=== PATIENT | female | born 1960 | race Caucasian/White ===

== ENCOUNTER 2020-01-29 10:49 | Observation (INO) | payer OTHER, SELFPAY ==
[2020-01-29] VITALS (12 sets, daily range): BP systolic 168–199; BP diastolic 94–119; PULSE 72–110; RESP 10–18; TEMP 36.3–36.7; O2SAT 96–100; BMI 33.5
--- NOTE | ~2020-01-29 | CT_ITS ---
EXAMINATION: CTA brain carotid DATE: 01/29/2020 16:42 SNOW REMOVAL SUPERVISOR INDICATION: Right arm numbness TECHNIQUE: Computed tomographic angiography (CTA) of the head was performed without and with 100 mL O mnipaque-350 intravenous contrast. CTA of the neck was performed with intravenous contrast. The dose- length product was 1000.11 mGy-cm. Maximum intensity projection and volume rendered 3D-reconstruction s were created by the technologist on a separate workstation. Automated exposure control and iterativ e reconstruction technique were employed. COMPARISON: CT brain dated 01/29/2020. FINDINGS: HEAD CTA: No significant stenosis, occlusion or aneurysm is identified in the major intracranial vess els. Vertebral arteries are symmetric. NECK CTA: No significant stenosis, occlusion or dissection. Minimal atherosclerotic calcification rig ht carotid bulb. Straightening of normal cervical lordosis with mild cervical spondylosis. There is 0% stenosis of the proximal right internal carotid artery relative to normal distal artery l umen diameter (NASCET criteria). There is 0% stenosis of the proximal left internal carotid artery re lative to normal distal artery lumen diameter. IMPRESSION: 1: No significant vascular abnormality of the neck or head. No significant stenosis, occlusion, diss ection or aneurysm. Reviewed, dictated and finalized at location A. REMOVAL SUPERVISOR IMPRESSION: 1: No significant vascular abnormality of the neck or head. No significant asim nosis, occlusion, dissection or aneurysm.
--- NOTE | ~2020-01-29 | CT_ITS ---
EXAMINATION: CT brain wo con EXAM DATE: 01/29/2020 13:13 INDICATION: Right arm paresthesia. High blood pressure. TECHNIQUE: Spiral CT of the head was performed without contrast. Axial, coronal and sagittal images were reviewed. The dose-length product (DLP) for this examination was 605.33 mGy-cm. The exposure w as tailored according to patient size, and iterative reconstruction (ASIR) was used as additional dos e reduction technique. Comparison is made to prior examination from 10/13/2008. FINDINGS: The There is no acute intraparenchymal hemorrhage. No evidence of intraparenchymal brain m ass lesion. No evidence of acute infarction. There is no mass effect or midline shift. The ventric les are normal in size. There are no extra-axial collections. There are no acute calvarial fracture s. The orbits are unremarkable. Soft tissue is unremarkable. The visualized sinuses and mastoid air cells are well aerated. IMPRESSION: 1. Unremarkable head CT examination. Reviewed, dictated and finalized at location A. D YEAST SUPERVISOR
--- NOTE | ~2020-01-29 | MR_ITS ---
EXAMINATION: MR brain/brain stem wo/w con EXAM DATE: 01/31/2020 12:43 INDICATION: Stroke. TECHNIQUE: Magnetic resonance imaging (MRI) of the brain/brain stem obtained without contrast. Sagit byron T1, axial diffusion, gradient echo (T2*), T1, T2, FLAIR sequences obtained. Patient was then inj ected with 15 cc intravenous Multihance contrast. Axial and coronal postcontrast T1 weighted sequence s obtained. Correlation is made to head CT from 01/28. FINDINGS: There is punctate acute infarction in the left thalamus. There is no acute hemorrhage seen on the T2*, a hemosiderin sensitive sequence. No intraparenchymal brain mass. The ventricles are nor mal in size. There are no extra-axial collections. Flow voids are seen in the cerebral arteries on the T2-weighted sequences consistent with their expected patency. The orbits are unremarkable. Seba ceous cyst along the midline scalp toward the vertex. There are no areas of abnormal enhancement on the postcontrast images. IMPRESSION: 1. Punctate acute left thalamic lacunar infarction. Reviewed, dictated and finalized at location A. CTOR SPEECH AND HEARING
[2020-01-29 11:54] LABS: Basophils Absolute Auto 0.1 K/mm3 (0.0-0.1); Basophils Percent Auto 1.3 % (0.2-1.2); Eosinophils Absolute Auto 0.2 K/mm3 (0-0.3); Eosinophils Percent Auto 3.4 % (0-4.4); Hematocrit 45.4 % (37.0-47.0); Hemoglobin 15.5 g/dL (12.0-15.0); Immature Granulocyte Absolute 0.03 K/mm3 (0.00-0.031); Immature Granulocyte Percent A 0.5 % (0-0.5); Lymphocytes Absolute Auto 1.44 K/mm3 (0.9-3.2); Lymphocytes Percent Auto 23.1 % (18.3-44.2); Mean Corpuscular HGB Conc 34.1 g/dl (32-36); Mean Corpuscular Hemoglobin 29.6 pg (26-34); Mean Corpuscular Volume 86.6 fl (80-100); Mean Platelet Volume 11.7 fl (7.4-10.4); Monocytes Absolute Auto 0.4 K/mm3 (0.1-0.6); Monocytes Percent Auto 6.9 % (2.6-8.5); Neutrophils Absolute Auto 4.1 K/mm3 (1.3-6.7); Neutrophils Percent Auto 64.8 % (45.5-73.1); Platelet Count Result 233 k/mm3 (150-375); Red Blood Count 5.24 M/mm3 (4.2-5.4); Red Cell Distribution Width 13.4 % (11.5-14.5); White Blood Count 6.2 K/mm3 (4.5-10.0)
[2020-01-29 12:06] LABS: Anion Gap 8 mmol/L (8-16); Blood Urea Nitrogen 13 mg/dL (7-17); Calcium 9.5 mg/dL (8.4-10.2); Carbon Dioxide 30 mmol/L (22-30); Chloride 104 mmol/L (98-107); Estimated CRCL calculation 54 ml/min; Estimated Glomerular Filt Rate > 60; Glucose 98 mg/dL (65-105); INR 0.9; Potassium 3.7 mmol/L (3.4-5.0); Prothrombin Time 13.1 Seconds (11.1-14.7); Sodium 142 mmol/L (137-145)
[2020-01-29 12:07] LABS: Partial Thromboplastin Time 29.2 SECONDS (22.3-36.8)
[2020-01-29 12:18] LABS: Troponin I < 0.012 ng/mL (0.000-0.034)
--- NOTE | 2020-01-29 12:28 | ECG_ITS ---
Measurements Intervals [place] Rate: 94 P: 40 TN: 181 QRS: -4 QRSD: 81 T: 4 QT: 349 QTc: 437 Interpretive Statements SINUS RHYTHM POSSIBLE LEFT ATRIAL ENLARGEMENT DELAYED PRECORDIAL R/S TRANSITION VOLTAGE CRITERIA FOR LVH BORDERLINE T WAVE ABNORMALITY- INFERIOR LEADS BORDERLINE ECG Electronically Signed On 01-29-2020 13:29:21 ROOM [facility] [employer] by Maco Swann D.O.
--- NOTE | 2020-01-29 12:45 | ED.NEUROSD ---
HPI - Neuro Symptoms/Deficit General Chief Complaint: Neuro Symptoms/Deficit Stated Complaint: numbness in hand and r arm Time Seen by Provider: 01/29/20 12:42 History of Present Illness HPI Narrative: 59 yo female w/ h/o htn presents to the ED for arm numbness. She reports that it first started yesterday. Resolved prior to going to bed last night. When she awoke this morning it had returned and has been constant throughout the day. She has also had intermittent right facial numbness, which is currently not present. She has never had these symptoms before. No weakness, confusion, aphasia, headache. She has not had her blood pressure medications for months. Related Data Home Medications Medication Instructions Recorded Confirmed aspirin [Adult Aspirin] 81 mg PO DAILY 01/29/20 01/29/20 telmisartan 40 mg PO DAILY 01/29/20 01/29/20 Allergies Allergy/AdvReac Type Severity Reaction Status Date / Time No Known Allergies Allergy Verified 01/29/20 17:49 Review of Systems Review of Systems: All systems reviewed & are unremarkable except as noted in HPI and below Constitutional: Constitutional: Denies chills, Denies fever(s) and Denies weakness Eyes: Eyes: Denies change in vision ENT: Denies sore throat Cardiovascular: Cardiovascular: Denies chest pain Respiratory: Respiratory: Denies dyspnea Gastrointestinal: Gastrointestinal: Denies abdominal pain and Denies nausea Musculoskeletal: Musculoskeletal: Denies back pain Integumentary/Breasts: Skin/Breast: Denies rash Neurologic: Denies confusion, Denies dizziness, Denies headache(s), Reports numbness and Denies weakness Psychiatric: Psychiatric: Denies anxiety [facility] Past Medical History Medical History Essential hypertension Surgical History Surgical History History of 2 sections History of partial hysterectomy History of tonsillectomy and adenoidectomy Family History Family History Mother Cerebrovascular accident Diabetes mellitus Hypertension Grandparent Cerebrovascular accident Social History Social History (Updated 01/29/20 @ 22:14 by Sosa Prescott PA-C) Social History: The patient lives in [place], [place] with her children. 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 No alcohol, tobacco, or illicit substance use. She designates her son, Xavier, as her surrogate decision maker and she wishes to be a full code. Spiritual care concerns: No Exam Const: General: healthy appearing, no acute distress and alert Orientation/consciousness: patient oriented x3 HENMT: Head: normal to inspection Neck: Neck: normal visual inspection and no lymphadenopathy Chest: Chest palpation & inspection: no tenderness Resp: Effort & Inspection: normal respiratory effort Auscultation: clear to auscultation bilaterally, no rales, no rhonchi and no wheezes Cardio: Jugular venous distension: no JVD Rate: regular rate Rhythm: regular rhythm Heart sounds: no murmurs GI: Inspection: non-distended GI Palp: Yes Soft to palpation and No Tenderness to palpation present (GI) Skin: General skin exam: normal color Neuro: General: patient oriented x3, moves all extremities, no focal motor deficits and CN's II-XI intact bilaterally Speech: normal speech Motor exam (neuro): 5/5 motor strength present throughout Sensory Exam: Upper extremity sensory exam abnormal Extrem: General: no edema Psych: Appearance: well kempt Affect: normal affect Course Vital Signs Vital signs: Vital Signs Temperature 36.3 C L 01/29/20 11:33 Pulse Rate 110 H 01/29/20 11:33 Respiratory Rate 18 01/29/20 11:33 Blood Pressure 183/119 H 01/29/20 11:33 Pulse Oximetry 99 01/29/20 11:33 Temperature 36.5 C 01/30/20 14:46 Pulse Rate
[2020-01-29] MEDS: ASPIRIN 81 MG CHEWABLE TABLET 324 MG PO (14:15)
--- NOTE | 2020-01-29 15:10 | ECHO_ITS ---
Patient Info Name: Sasha Carrillo Age: 59 years : 1960 Gender: Female Ht: 61 in Wt: 154 lbs BSA: 1.76 m2 HR: 88 bpm BP: 183 / 119 mmHg Heart Rhythm: Sinus Rhythm Technical Quality: Good Exam Date: 01/29/2020 4:10 PM Exam Location: [facility] Exam Room: ER [facility] Patient Status: Inpatient Admit Date: 01/29/2020 Staff Ordering Physician: Sosa Prescott PA-C Medical Staff Assistant: Allie Cuevas RDCS Attending Provider: Audrey Wade MD Referring Physician: Kenyon NICHOLE; Exam Type: CA echo doppler color flow Study Info Indications - htn cva symptoms Complete two-dimensional, color flow and Doppler transthoracic echocardiogram is performed. Summary 1. Complete two-dimensional, color flow and Doppler transthoracic echocardiogram is performed. 2. Left ventricular chamber size and systolic function are normal with no regional wall motion abnormalities with an estimated ejection fraction of 60-65%. Diastolic dysfunction is present. Moderate left ventricular hypertrophy is present. 3. Left atrial chamber dimension is mildly enlarged. 4. No pulmonary hypertension, estimated pulmonary arterial systolic pressure is 34 mmHg. 5. No significant valve disease. 6. Normal sinus rhythm. Left Ventricle Left ventricular chamber dimension is normal. Left ventricular systolic function is normal, estimated at 60-65%. There is moderately increased left ventricular wall thickness. Left ventricular septal wall motion is normal. The left ventricular diastolic function is grade I diastolic dysfunction. Left ventricular chamber size and systolic function are normal with no regional wall motion abnormalities with an estimated ejection fraction of 60-65%. Diastolic dysfunction is present. Moderate left ventricular hypertrophy is present. Right Ventricle Right ventricular chamber dimension is normal. Right ventricular systolic function is normal. Left Atria Left atrial chamber dimension is mildly enlarged. Right Atria Right atrial chamber dimension is normal. Aortic Valve The aortic valve is trileaflet. There is no aortic valve sclerosis. There is no aortic valve stenosis. There is no aortic valve regurgitation. Pulmonic Valve The pulmonic valve is normal. There is no pulmonic valve stenosis. There is trace pulmonic regurgitation. Mitral Valve The mitral valve has normal leaflets. There is no mitral valve stenosis. There is no mitral valve regurgitation. Tricuspid Valve The tricuspid valve leaflets are normal. There is no significant tricuspid valve stenosis. There is trace tricuspid valve regurgitation. No pulmonary hypertension, estimated pulmonary arterial systolic pressure is 34 mmHg. Pericardium/Pleural The pericardium appears normal. There is no pericardial effusion. Inferior Vena Cava Normal inferior vena cava with >50% collapse upon inspiration consistent with Empty right atrial pressure, 10 mmHg. Aorta The aortic root size at the sinus of Valsalva is normal. The prox ascending aorta size is normal. Left Ventricular Outflow Tract Name Value Normal LVOT 2D LVOT Diameter 2.0 cm LVOT Doppler
--- NOTE | 2020-01-29 17:30 | PM.IMHP ---
H&P: HPI History of Present Illness Date/Time: 01/29/20 17:30 Chief Complaint: Right-sided paresthesias. Narrative: Sasha Carrillo is a 59-year-old female with hypertension who presented to the emergency department earlier today via private vehicle from home with reports of right-sided paresthesias. 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 Since that time she has had intermittent paresthesias in the right upper extremity as well as the right side of the face and lips. As she continued to have symptoms today, she came in for evaluation. On arrival to the emergency department her blood pressure was 183/119 and with further questioning she mentions that she has been off of her antihypertensives for nearly a year. She will occasionally check her blood pressures at home and in the community, and reports that they are typically in the 140s - 150s over 90s. She denies headache, vertigo, focal weakness, auditory and visual changes, dysarthria, and dysphagia. She also denies chest pain and palpitations. Review of Systems Review of Systems: Narrative: Twelve systems were reviewed with pertinent positives and negatives as per HPI. No fever, chills, or sweats. No recent cold or flu symptoms. She denies cough and shortness of breath. No chest pain. No nausea, vomiting, diarrhea, or dysuria. Except as documented, all other systems were reviewed and are negative. [facility] Past Medical History Medical History Essential hypertension Surgical History Surgical History History of 2 sections History of partial hysterectomy History of tonsillectomy and adenoidectomy Family History Family History Mother Cerebrovascular accident Diabetes mellitus Hypertension Grandparent Cerebrovascular accident Social History Social History (Updated 01/29/20 @ 22:14 by Sosa Prescott PA-C) Social History: The patient lives in [place], [place] with her children. She works for a [employer] in [place] but has been working at home since April 2019. No alcohol, tobacco, or illicit substance use. She designates her son, Xavier, as her surrogate decision maker and she wishes to be a full code. Spiritual care concerns: No Meds Home Medications and Allergies Home Medications Medication Instructions Recorded Confirmed Type aspirin [Adult Aspirin] 81 mg PO DAILY 01/29/20 01/29/20 History telmisartan 40 mg PO DAILY 01/29/20 01/29/20 History Allergies Allergy/AdvReac Type Severity Reaction Status Date / Time No Known Allergies Allergy Verified 01/29/20 17:49 Vital Signs Vital Signs - 24 hr 01/29/20 11:33 Temperature 97.4 F L Pulse Rate 110 H Respiratory Rate 18 Blood Pressure 183/119 H Pulse Oximetry 99 Exam Narrative: Exam Narrative: General: Well-developed female sitting up in bed in no distress. Weight: 80.6 kg. BMI: 33.6. HEENT: Normocephalic, atraumatic. Wearing corrective lenses. PERRL, EOMI. Sclerae anicteric. Oral mucosa moist. Oropharynx clear. Neck: Supple. No JVD. No carotid bruits. Respiratory: Lungs are clear to auscultation bilaterally. Cardiovascular: Regular rate and rhythm with S1-S2. Gastrointestinal: Abdomen is soft, nontender, and nondistended with positive bowel sounds. Skin: Warm and dry. No rash or lesions on limited exam. Extremities: No cyanosis, clubbing, or edema. Radial and pedal pulses intact. Neurological: Alert and oriented x4. Cranial nerves 2-12 are grossly intact. Speech is clear. No facial asymmetry. No pronator drift. Normal [id number] and rapid alternating movements. Strength 5/5 in upper and lower extremities. Reports decrease
--- NOTE | 2020-01-29 17:44 | ADMGEN ---
This patient, Sasha Carrillo, was admitted to 2 Medical Room 250-01. Patient/family oriented to hospital policies and general routines including ID bracelet, bed and alarms, visiting hours, pain management, procedures, bathroom and other care routines, personal items, smoking policy, room service/diet, and visiting hours. Information on how to activate the Rapid Response Team has been discussed. Patient/Family are encouraged to report perceived risks to care and to ask questions if they do not understand what they are told or what they should do. Report received from JOSE Gonzalez.
[2020-01-29] MEDS: TELMISARTAN 40 MG TABLET PO (22:25)
[2020-01-30] VITALS (10 sets, daily range): BP systolic 179–202; BP diastolic 86–98; PULSE 69–92; RESP 16–20; TEMP 36.5–37; O2SAT 96–99
[2020-01-30] MEDS: ACETAMINOPHEN 325 MG TABLET 650 MG PO (05:12)
[2020-01-30 05:57] LABS: Alanine Aminotransferase 32 U/L (4-35); Albumin Level 4.2 g/dL (3.5-5.1); Alkaline Phosphatase 84 U/L (38-126); Anion Gap 8 mmol/L (8-16); Aspartate Amino Transferase 39 U/L (14-36); Bilirubin,Total 0.8 mg/dL (0.2-1.3); Blood Urea Nitrogen 12 mg/dL (7-17); Calcium 9.3 mg/dL (8.4-10.2); Carbon Dioxide 29 mmol/L (22-30); Chloride 102 mmol/L (98-107); Cholesterol 254 mg/dL (0-200); Estimated CRCL calculation 64 ml/min; Estimated Glomerular Filt Rate > 60; Glucose 106 mg/dL (65-105); HDL Direct 53 mg/dL; Potassium 3.6 mmol/L (3.4-5.0); Sodium 139 mmol/L (137-145); Triglycerides 122 mg/dL (<150)
[2020-01-30 06:08] LABS: LDL Cholesterol Direct 143 mg/dL
[2020-01-30] MEDS: ATORVASTATIN 20 MG TABLET PO (08:11)
[2020-01-30] MEDS: ASPIRIN 81 MG ENTERIC TABLET PO (08:11)
[2020-01-30] MEDS: hydroCHLOROthiazide 12.5 MG CAPSULE PO (12:25)
--- NOTE | 2020-01-30 17:40 | PM.IMPN ---
Progress Note: A&P Assessment and Plan (1) Paresthesias: Code(s): R20.2 - Paresthesia of skin Status: Acute Assessment and Plan: Patient with right sided paresthesias involving mostly the RUE and right face. She has uncontrolled HTN when could have caused a small CVA. TIA less likely given the persistent symptoms. CTA of the Head/Neck normal. Echo is essentially normal. LDL 143. Add Lipitor. Continue ASA for now. Brain MRI pending (2) Essential hypertension: Code(s): I10 - Essential (primary) hypertension Status: Acute Assessment and Plan: Blood pressure was elevated still this morning despite starting back her telmisartan last night. Will add low dose HCTZ this morning to lower BP slightly below 200 but to keep with the permissive hypertensive strategy. (3) Hyperlipidemia: Code(s): E78.5 - Hyperlipidemia, unspecified Status: Acute Assessment and Plan: LDL 143 with TC 254. Lipitor started. Would advance dose if she has had a CVA. (4) DVT prophylaxis: Code(s): Z29.9 - Encounter for prophylactic measures, unspecified Status: Acute Assessment and Plan: SCDs Subjective Date/time seen: 01/30/20 17:40 Interval history: Date of service 01/29 59yo female with untreated HTN here for right sided paresthesias. Patient states that the right UE has more tingling in it today and not as numb. No RLE or left sided symptoms. Still numb in the right side of the face mostly in V2 area. She denies weakness and has been walking to the BR. No vision changes. Eating okay. Exam Narrative: Exam Narrative: AF 97.7 181/87 80 20 99% ra Gen - NARD Chest - CTA bilaterally, nml RR CV - RRR S1/S2; Tele showing no signifincat dysrhythmias Abd - Soft, NT/ND, Positive BS Ext - No pedal edema Neuro - Alert and oriented. No focal weakness. Nml sensation to light touch to the lower extremity. Decreased sensation involving the whole right hand and forearm when compared to the left. No significant change in sensation to the face. Speech is clear. CN 2-12 intact. PERRL/EOMI. Psych - Nml mood and affect Skin - Warm and dry Objective Data Vital Signs Vital Signs: Vital Signs - 24 hr 01/29/20 18:00 01/29/20 21:00 01/30/20 00:00 Temperature 98.0 F 97.5 F L Pulse Rate 75 75 90 Respiratory Rate 18 18 Blood Pressure 191/98 H 187/94 H Pulse Oximetry 100 96 01/30/20 04:00 01/30/20 04:58 01/30/20 05:03 Temperature 98.0 F Pulse Rate 76 87 Respiratory Rate 16 Blood Pressure 202/98 H 202/98 H Pulse Oximetry 99 01/30/20 08:00 01/30/20 08:32 01/30/20 12:00 Temperature Pulse Rate 71 70 Respiratory Rate Blood Pressure Pulse Oximetry 96 01/30/20 14:46 Temperature 97.7 F Pulse Rate 80 Respiratory Rate 20 Blood Pressure 181/87 H Pulse Oximetry 99 Intake/Output Intake/Output: Intake & Output 01/27/20 01/28/20 01/29/20 01/30/20 23:59 23:59 23:59 23:59 Intake Total 1430 Output Total 4550 Balance -3120 Meds/Results Medications: Active Medications Generic Name Dose Route Start Last Admin Trade Name Justinq PRN Reason Stop Dose Admin Aspirin 81 mg 01/30/20 09:00 01/30/20 08:11 Aspirin 81 Mg Enteric Tablet PO 81 mg QAM OZZY Administration Atorvastatin Calcium 20 mg 01/30/20 09:00 01/30/20 08:11 Atorvastatin 20 Mg Tablet PO 20 mg DAILY OZZY Administration Hydrochlorothiazide 12.5 mg 01/30/20 10:10 01/30/20 12:25 Hydrochlorothiazide 12.5 Mg Capsule PO 12.5 mg QAM OZZY Administration Telmisartan 40 mg 01/29/20 21:15 01/29/20 22:25 Telmisartan 40 Mg Tablet PO 40 mg QPM OZZY Administration Radiology Results: ITS Impressions Head CT 01/29/20 13:15 IMPRESSION: 1. Unremarkable head CT examination. Head/Neck CTA 01/29/20 16:42 IMPRESSION: 1: No significant vascular abnormality of the neck or head. No significant stenosis, o
[2020-01-30] MEDS: TELMISARTAN 40 MG TABLET PO (17:45)
[2020-01-31] VITALS: PULSE 69
[2020-01-31 04:00] VITALS: PULSE 67
[2020-01-31 05:00] VITALS: BP 181/99; PULSE 95; RESP 18; TEMP 36.4; O2SAT 100
[2020-01-31 08:00] VITALS: PULSE 92
[2020-01-31] MEDS: hydroCHLOROthiazide 12.5 MG CAPSULE PO (08:23)
[2020-01-31] MEDS: ATORVASTATIN 20 MG TABLET PO (08:23)
[2020-01-31] MEDS: ASPIRIN 81 MG ENTERIC TABLET PO (08:23)
--- NOTE | 2020-01-31 11:58 | WPDNEURCNPN ---
Assessment and Plan Assessment and plan (1) Hyperlipidemia: Code(s): E78.5 - Hyperlipidemia, unspecified Status: Acute (2) Essential hypertension: Code(s): I10 - Essential (primary) hypertension Status: Acute (3) Paresthesias: Code(s): R20.2 - Paresthesia of skin Status: Acute Additional Plan possibility of the TIA, MRI will be obtained to rule out the possibility of any other etiology such as demyelinating disease considering the age of the patient and further treatment will be decided accordingly at present she is receiving aspirin 81 mg daily and atorvastatin 20 mg daily and for the blood pressure she is receiving hydrochlorothiazide 12.5 mg daily. 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 Since that time she had intermittent paresthesia in the right upper extremity as well as the right side of the face and lips when she continued to have the symptomatology she came to the emergency room for further evaluation. Initial evaluation her blood pressure was 183/119 she had been off her antihypertensive medication for nearly a year and was checking her blood pressure only intermittently she gave no history of any other associated neurological symptomatology. Evaluation up until now documented the CTA with no significant vascular abnormality of the neck or head, echocardiogram not significant, CT of the head negative, routine labs unremarkable except cholesterol of 254 and there is no history of smoking Review of Systems Review of Systems: All systems reviewed & are unremarkable except as noted in HPI and below PMFSH Past Medical History Medical History Essential hypertension Surgical History Surgical History History of 2 sections History of partial hysterectomy History of tonsillectomy and adenoidectomy Family History Family History Mother Cerebrovascular accident Diabetes mellitus Hypertension Grandparent Cerebrovascular accident Social History Social History Social History: The patient lives in [place], [place] with her children. 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 No alcohol, tobacco, or illicit substance use. She designates her son, Xavier, as her surrogate decision maker and she wishes to be a full code. Spiritual care concerns: No Meds Home Medications and Allergies Home Medications Medication Instructions Recorded Confirmed Type aspirin [Adult Aspirin] 81 mg PO DAILY 01/29/20 01/29/20 History telmisartan 40 mg PO DAILY 01/29/20 01/29/20 History Allergies Allergy/AdvReac Type Severity Reaction Status Date / Time No Known Allergies Allergy Verified 01/29/20 17:49 Vital Signs Vital Signs - 24 hr 01/30/20 12:00 01/30/20 14:46 01/30/20 16:00 Temperature 36.5 C Pulse Rate 70 80 69 Respiratory Rate 20 Blood Pressure 181/87 H Pulse Oximetry 99 01/30/20 20:00 01/31/20 00:00 01/31/20 04:00 Temperature 37.0 C Pulse Rate 69 69 67 Respiratory Rate 20 Blood Pressure 179/86 H Pulse Oximetry 97 01/31/20 05:00 01/31/20 08:00 Temperature 36.4 C L Pulse Rate 95 92 Respiratory Rate 18 Blood Pressure 181/99 H Pulse Oximetry 100 Exam Narrative: Exam Narrative: examination revealed her to be awake alert cooperative in no obvious acute distress head normocephalic with no cranial bruit.
[2020-01-31 12:00] VITALS: PULSE 82
[2020-01-31 14:00] VITALS: BP 167/89; PULSE 78; RESP 16; TEMP 36.6; O2SAT 98
--- NOTE | 2020-01-31 15:07 | PM.DS ---
DS: Admitting Diagnosis Admitting Diagnosis Admitting Diagnosis: right sided paresthesias DS: Discharge Diagnosis Discharge Diagnosis (1) Stroke: Qualifiers: CVA mechanism: unspecified Qualified Code(s): I63.9 - Cerebral infarction, unspecified Code(s): I63.9 - Cerebral infarction, unspecified Status: Acute Assessment and Plan: Patient with right sided paresthesias involving mostly the RUE and right face. She has uncontrolled HTN and HLD. Head CT no acute findings. CTA of the Head/Neck showing no significant vascular abnormality of the neck or head; specifically, no significant stenosis, occlusion, dissection or aneurysm.. Echo showing EF 60-65% with diastolic dysfunction. LDL 143. Patient takes aspirin infrequently so Aspirin 81mg added. Brain MRI showing punctate acute left thalamic lacunar infarction. Lipitor added. See below for hypertensive treatment. Given the small CVA and that this is most likely from HTN and not atherosclerotic, will not proceed with Plavix course. Discussed with neurology. (2) Paresthesias: Code(s): R20.2 - Paresthesia of skin Status: Acute Assessment and Plan: Patient with right sided paresthesias involving mostly the RUE and right face. Symptoms improving since admission. Related to the left thalamic CVA. (3) Essential hypertension: Code(s): I10 - Essential (primary) hypertension Status: Acute Assessment and Plan: Blood pressure was elevated on admission up to 202 systolic. We resumed her telmisartan but BP still elevated so low dose HCTZ added to lower BP below 200 but to keep with the permissive hypertensive strategy. Blood pressure today was 181/99 and 167/89. She will need more tighter BP control as outpatient. This was discussed with patient in detail. (4) Hyperlipidemia: Code(s): E78.5 - Hyperlipidemia, unspecified Status: Acute Assessment and Plan: LDL 143 with TC 254. Lipitor started. Benefits of healthy lifestyle discussed. DS: Summary Hospital Course Reason for hospitalization: 59yo female with untreated HTN here for right facial and upper extremeity paresthesias. Please see H&P for details. Hospital Course: Please see above for details of hospital course Status at Discharge Cognitive/behavioral status at discharge: patient is stable for discharge Time Spent with Patient Time attestation: Total time spent providing and/or coordinating discharge services:38 minutes Time spent: Greater than 30 minutes Specific discharge activities: patient education Exam Narrative: Exam Narrative: AF 97.9 167/89 78 16 98% ra Gen - NARD Chest - CTA bilaterally, nml RR CV - RRR S1/S2; Tele showing no significant dysrhythmias Abd - Soft, NT/ND, Positive BS Ext - No pedal edema Neuro - Alert and oriented. No focal weakness. Psych - Nml mood and affect Skin - Warm and dry Discharge Plan Discharge Attending physician on discharge: Ranjith Garcia Consulting providers: Diego Elliott Discharging Clinician: Ranjith Garcia Anticipated Discharge Date/Time: 01/31/20 15:43 Patient Disposition: Home, Self-Care Activity: as tolerated Diet: heart healthy and low sodium Discharge Instructions: Please avoid large gathering, wear face coverings in public and practice social distance. Check blood pressure 1 to 2 times a day. Record and bring into your doctor for review. Call your doctor if your blood pressure is greater than 190/110. Contact your doctor or come to the Emergency Room if you have any acute onset of weakness in an arm or leg, slurred speech or other worrisome symptoms. Avoid NSAIDs (ibuprofen, naproxen, Aleve). Tylenol is safe to take. Follow-up with your doctor next week. Please call for appointment. Follow-up with neurology in 2-4 weeks. Please call for appointment. Patient Instructions: Antibiotic Form, Ischemic Stroke (GEN), DASH E
== END 2020-01-31 16:46 | disposition home or self-care (01) ==
LOC: ANHED 15:21 → ANH2MED 16:07
PROVIDERS: General Practice; Physician Assistant; Admitting Provider Family Medicine; Emergency Provider Emergency Medicine; Visit Provider Internal Medicine
DX: I63.9 Cerebral infarction, unspecified (principal); R20.2 Paresthesia of skin; I10 Essential (primary) hypertension; E78.5 Hyperlipidemia, unspecified; Z79.82 Long term (current) use of aspirin
CPT/HCPCS: 36415; 70450; 70496; 70498; 70553; 80048; 80053; 80061; 84484; 85025; 85610; 85730; 93005; 93306; 99285; A9270; A9577; G0378; Q9967

== ENCOUNTER 2020-02-11 09:04 | Emergency (ER) | payer OTHER, SELFPAY ==
[2020-02-11] VITALS (18 sets, daily range): BP systolic 144–221; BP diastolic 76–114; PULSE 61–119; RESP 8–34; TEMP 36.8; O2SAT 97–100
--- NOTE | ~2020-02-11 | XR_ITS ---
EXAMINATION: XR chest 1V portable DATE: 02/11/2020 10:04 INDICATION: Hypertension. TECHNIQUE: A single frontal view of the chest was obtained. COMPARISON: Chest 2 views 08/22/2011 FINDINGS: The chest demonstrates clear lungs without pneumonia, pleural effusion, or pneumothorax. Th e heart size is normal. IMPRESSION: 1. No acute cardiopulmonary disease. Reviewed, dictated and finalized at location A. INTERN
--- NOTE | ~2020-02-11 | CT_ITS ---
EXAMINATION: CTA brain carotid DATE: 02/11/2020 10:38 INDICATION: Cerebrovascular accident. TECHNIQUE: Computed tomographic angiography (CTA) of the head was performed without and with 100 mL O mnipaque-350 intravenous contrast. CTA of the neck was performed with intravenous contrast. Automated exposure control and iterative reconstruction technique were employed. The dose-length product was 1 645.77 mGy-cm. Maximum intensity projection and volume rendered 3D-reconstructions were created by diogo sanchez technologist on a separate workstation. COMPARISON: Head CTA 01/29/2020 FINDINGS: HEAD CTA: There is no intracranial hemorrhage, acute infarction, or abnormal intracranial mass lesion . The ventricles are normal in size. The paranasal sinuses are clear. The orbits are normal. The mast oid air cells are normal. There is a 1.4 cm partially calcified mass in the anterior superior scalp t hat may be an old hematoma. The vertebral arteries are codominant. There is no significant stenosis o f basilar artery or the posterior cerebral arteries. There is no significant stenosis of the intracra nial internal carotid arteries or anterior or middle cerebral arteries. Anterior communicating artery is normal. The posterior communicating arteries are normal. There is no aneurysm. NECK CTA: There are no pathologically enlarged lymph nodes. There is no significant stenosis of the v ertebral arteries. There is mild plaque in proximal right internal carotid artery. There is 0% stenos is of the proximal right internal carotid artery relative to normal distal artery lumen diameter (ESTEFANI CET criteria). There is 0% stenosis of the proximal left internal carotid artery relative to normal d istal artery lumen diameter. There is mild cervical spondylosis. IMPRESSION: 1. Normal brain. No aneurysm or significant intracranial arterial stenosis. 2. 0% stenosis of the proximal internal carotid arteries relative to normal distal artery lumen diame ters (NASCET criteria). Reviewed, dictated and finalized at location A. E CARE NURSING ASSISTANT IMPRESSION: 1. Normal brain. No aneurysm or significant intracranial arterial stenosis. 2. 0% stenosis of the proximal internal carotid arteries relative to normal dis byron artery lumen diameters (NASCET criteria).
--- NOTE | 2020-02-11 09:40 | ECG_ITS ---
Measurements Intervals [place] Rate: 74 P: 45 NC: 179 QRS: 4 QRSD: 93 T: 9 QT: 370 QTc: 411 Interpretive Statements SINUS RHYTHM POSSIBLE LEFT ATRIAL ENLARGEMENT DELAYED PRECORDIAL R/S TRANSITION BORDERLINE T WAVE ABNORMALITY- INFERIOR LEADS BORDERLINE ECG Electronically Signed On 02-11-2020 10:30:23 ISSUER by Maco Swann D.O.
[2020-02-11] MEDS: LABETALOL HCL INJ 100 MG/20 ML VIAL 10 MG IV PUSH (10:05)
[2020-02-11 10:12] LABS: Basophils Absolute Auto 0.1 K/mm3 (0.0-0.1); Basophils Percent Auto 1.5 % (0.2-1.2); Eosinophils Absolute Auto 0.3 K/mm3 (0-0.3); Eosinophils Percent Auto 5.7 % (0-4.4); Immature Granulocyte Absolute 0.02 K/mm3 (0.00-0.031); Immature Granulocyte Percent A 0.4 % (0-0.5); Lymphocytes Absolute Auto 1.55 K/mm3 (0.9-3.2); Lymphocytes Percent Auto 28.4 % (18.3-44.2); Mean Corpuscular HGB Conc 33.3 g/dl (32-36); Mean Corpuscular Hemoglobin 29.5 pg (26-34); Mean Corpuscular Volume 88.4 fl (80-100); Mean Platelet Volume 12.2 fl (7.4-10.4); Monocytes Absolute Auto 0.4 K/mm3 (0.1-0.6); Monocytes Percent Auto 7.2 % (2.6-8.5); Neutrophils Absolute Auto 3.1 K/mm3 (1.3-6.7); Neutrophils Percent Auto 56.8 % (45.5-73.1); Platelet Count Result 230 k/mm3 (150-375); Red Blood Count 5.09 M/mm3 (4.2-5.4); Red Cell Distribution Width 13.2 % (11.5-14.5); White Blood Count 5.5 K/mm3 (4.5-10.0)
[2020-02-11 10:15] LABS: Glucose Point of Care 116 (65-105)
[2020-02-11 10:25] LABS: Anion Gap 7 mmol/L (8-16); Blood Urea Nitrogen 9 mg/dL (7-17); Calcium 9.5 mg/dL (8.4-10.2); Carbon Dioxide 32 mmol/L (22-30); Chloride 101 mmol/L (98-107); Estimated CRCL calculation 63 ml/min; Estimated Glomerular Filt Rate > 60; Glucose 114 mg/dL (65-105); Potassium 3.5 mmol/L (3.4-5.0); Sodium 140 mmol/L (137-145)
[2020-02-11 10:32] LABS: Estimated CRCL calculation 56 ml/min; Estimated Glomerular Filt Rate > 60
[2020-02-11 10:35] LABS: INR 0.9; Prothrombin Time 12.4 Seconds (11.1-14.7)
[2020-02-11 10:36] LABS: Partial Thromboplastin Time 30.6 SECONDS (22.3-36.8)
--- NOTE | 2020-02-11 10:36 | ED.ABDPAIN ---
HPI - Abdominal Pain General Chief Complaint: Unspecified Stated Complaint: HBP & numbness to right arm Time Seen by Provider: 02/11/20 09:06 Source: patient and old records reviewed Mode of arrival: ambulatory Limitations: no limitations History of Present Illness HPI narrative: Patient is a 59-year-old female who presents to emergency department for evaluation of frontal headache that is minimal in nature as well as some numbness in the right upper extremity that extends from the hand up into the right side of the neck and head in January patient was found to have small ischemic stroke per patient patient saw her primary care doctor yesterday who increased her blood pressure medicine. Patient took the first dose of the increased dose last night. Patient notes this morning at 8:00 she began to feel numbness in the right upper extremity with a mild headache as described presented to ER for these findings due to the similar occurrence in January which was diagnosed as an ischemic stroke. Patient is also taking baby aspirin at this time. Patient notes she had felt fine in the preceding days Related Data Home Medications Medication Instructions Recorded Confirmed telmisartan 60 mg PO QPM 02/11/20 Allergies Allergy/AdvReac Type Severity Reaction Status Date / Time No Known Allergies Allergy Verified 02/11/20 09:21 Review of Systems Review of Systems: All systems reviewed & are unremarkable except as noted in HPI and below PMFSH Past Medical History Medical History (Updated 02/11/20 @ 13:11 by Duane Shay PA-C) Essential hypertension Hyperlipidemia Paresthesias Stroke Surgical History Surgical History History of 2 sections History of partial hysterectomy History of tonsillectomy and adenoidectomy Family History Family History Mother Cerebrovascular accident Diabetes mellitus Hypertension Grandparent Cerebrovascular accident Social History Social History Social History: The patient lives in [place], [place] with her children. She works for a [employer] in [place] but has been working at home since April 2019. No alcohol, tobacco, or illicit substance use. She designates her son, Xavier, as her surrogate decision maker and she wishes to be a full code. Gender identity (if verbalized by the patient): Female Spiritual care concerns: No Exam Narrative: Exam Narrative: GENERAL: Well-appearing, well-nourished, and in no acute distress. HEAD: Normocephalic, atraumatic. EYES: PERRLA and EOMI. ENT: Nares clear, no rhinorrhea or epistaxis. Mucous membranes moist. NECK: Supple. No adenopathy or masses. No carotid bruits or JVD CHEST: Clear to auscultation. No respiratory distress. No wheezes rales or rhonchi HEART: Regular rate and rhythm. No murmur heard. Normal peripheral pulses. EXTREMITIES: Normal range of motion. No edema. SKIN: Warm, dry, no rash. NEURO: No focal deficits. Alert and oriented x3. Cranial nerves II through XII grossly intact. Normal [id number] and [id number]. Normal speech. No pronator drift. Motor and sensory intact and symmetrical in the extremities. Cerebellar intact PSYCH: Normal mood and affect. Course Course Emergency Course: Patient presented with what appeared to be hypertensive urgency was evaluated was given a dose of labetalol and had marked improvement of her blood pressure throughout her visit patient otherwise in no distress resting comfortably noting she is feeling much better at the resolution of her evaluation discussions were made with neurology and primary care who feel they will follow the patient outside of the hospital and not warranting admission at this time neurology states that this is likely a blood pressure issue and with control of her blood pressure her symptoms sh
[2020-02-11 10:38] LABS: Troponin I < 0.012 ng/mL (0.000-0.034)
== END 2020-02-11 13:26 | disposition home or self-care (01) ==
PROVIDERS: Emergency Medicine Emergency Medical Services; Emergency Provider Emergency Medicine; PCP Internal Medicine
DX: I10 Essential (primary) hypertension (principal); E78.5 Hyperlipidemia, unspecified; Z86.73 Personal history of transient ischemic attack (TIA), and cerebral infarction without residual deficits; R20.2 Paresthesia of skin; R94.31 Abnormal electrocardiogram [ECG] [EKG]
CPT/HCPCS: 36415; 70496; 70498; 71045; 80048; 82948; 84484; 85025; 85610; 85730; 93005; 96374; 99284; Q9967

== ENCOUNTER 2024-08-18 09:19 | Emergency (ER) | payer OTHER, SELFPAY ==
[2024-08-18] VITALS (15 sets, daily range): BP systolic 124–178; BP diastolic 77–103; PULSE 78–110; RESP 11–26; TEMP 36.6; O2SAT 95–100
--- NOTE | ~2024-08-18 | CT_ITS ---
EXAMINATION: CTA chest PE protocol DATE: 08/18/2024 10:45 INDICATION: Chest pain. Near syncope. TECHNIQUE: Computed tomography (CT) pulmonary angiogram of the chest was performed with 100 mL Omnipa que-350 intravenous contrast. Additional 3D reconstructions utilizing coronal maximum intensity proje ction (MIP) were performed. Automated exposure control and iterative reconstruction technique were em ployed. The dose-length product was 339.47 mGy-cm. COMPARISON: None FINDINGS: No pulmonary embolism. No pneumonia, pulmonary edema, pleural effusion or pneumothorax. Heart size is normal. No pericardial effusion. Thoracic aorta is normal in caliber with no dissection. No patholog ically enlarged abdominal or pelvic lymphadenopathy. Small sliding-type hiatal hernia. Mild scattered colonic diverticulosis without adjacent comparison to suggest diverticulitis. Visualized upper abdom en is unremarkable. Thoracic dextrocurvature with mild to moderate spondylosis. IMPRESSION: 1. No pulmonary embolism or other acute cardiopulmonary disease. 2. Small sliding-type hiatal hernia. Reviewed, dictated and finalized at location A.
--- NOTE | ~2024-08-18 | XR_ITS ---
EXAMINATION: XR chest 1V DATE: 08/18/2024 10:40 INDICATION: Chest pain TECHNIQUE: PA view of the chest was obtained. COMPARISON: CT dated 08/18/2024 FINDINGS: The lungs are clear with no focal airspace opacities, pulmonary edema, pleural effusion or pneumothor ax. The cardiomediastinal silhouette is normal. Mild thoracic dextrocurvature with mild spondylosis IMPRESSION: 1. No acute cardiopulmonary disease. Reviewed, dictated and finalized at location A.
--- OUTSIDE RECORDS SUMMARY | 2024-08-18 09:23 | XMS_ITS | Referral Summary ---
Author Organization [facility] Clinical [facility] Address [address] [place] [id number] Care Team Providers Care Safety Teacher Name Role Phone Tunde Espinosa MD Primary Care Provider [phone] Jacque Hunter MD Unavailable [phone] Diego Elliott MD Unavailable [phone] Encounters Date Type Department Care Team Description 06/17/2024 Results Follow-Up [address] [address] Tunde Espinosa MD CBC with auto differential, Comprehensive metabolic panel, Lipid panel, Additional followed-up results: 5 06/17/2024 2:30 PM CDT Office Visit [address] [address] Tunde Espinosa MD Primary hypertension (Primary Dx); IFG (impaired fasting glucose) from Last 3 Months Allergies Active Allergy Reactions Criticality Noted Date Comments Lisinopril Cough Low 05/09/2018 Medications aspirin 81 mg enteric coated tabletIndications: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 90 tablet 025 Active telmisartan (MICARDIS) 80 mg tabletIndications:Prima ry hypertension TAKE 1 TABLET BY MOUTH EVERY DAY 90 tablet 025 Active amLODIPine (NORVASC) 5 mg tabletIndications:Prima ry hypertension Take 1 tablet (5 mg total) by mouth daily 90 tablet 025 2024 Discontinued telmisartan (MICARDIS) 80 mg tabletIndications:Prima ry hypertension Take 1 tablet (80 mg total) by mouth daily 90 tablet 025 2024 Discontinued Active Problems Problem Noted Date Diagnosed Date IFG (impaired fasting glucose) 01/05/2023 Assessment & Plan (06/17/2024 2:30 PM CDT): Impaired Fasting Glucose is newly identified Counseled on regular aerobic exercise, including walkig, jogging, targeting 10K- 20K step equivalent daily., Counseled on low carbohydrate diet, and Counseled on intermittent fasting diet. Follow up at the next regular appointment Assessment & Plan (02/27/2023 8:29 AM WHEAT WASHER): Recent mild FPG elevation. Subsequent normal HBA1c. Counseled on regular exercise and mediterranean diet. Recheck annually. History of thalamic stroke 03/30/2020 Assessment & Plan (04/01/2020 9:08 AM WHEAT WASHER): Continue efforts to optimize CV risk. Class 1 obesity with body ma ss index (BMI) of 33.0 to 33.9 in adult 06/01/2016 Overview (02/07/2018): Assessment & Plan (05/06/2024 2:08 PM CDT): Obesity is unchanged. Discussed the patient's BMI. The BMI is above average; BMI management plan is completed. General weight loss/lifestyle modification strategies discussed. Assessment & Plan (02/27/2023 8:30 AM WHEAT WASHER): Obesity is unchanged. Discussed the patient's BMI. The BMI is above average; BMI management plan is completed. General weight loss/lifestyle modification strategies discussed. Assessment & Plan (10/17/2022 3:40 PM CDT): Obesity is worsening. Discussed the patient's BMI. The BMI is above average; BMI management plan is completed. General weight loss/lifestyle modification strategies discussed. Assessment & Plan (04/21/2021 8:31 AM CDT): Obesity is unchanged. Discussed the patient's BMI. The BMI is above average; BMI management plan is completed. General weight loss/lifestyle modification strategies discussed (elicit support from others; identify saboteurs; non-food rewards, etc). Assessment & Plan (04/01/2020 9:08 AM WHEAT WASHER): Obesity is unchanged. Discussed the patient's BMI. The BMI is above average; BMI management plan is completed. General weight loss/lifestyle modification strategies discussed (elicit support from others; identify saboteurs; non-food rewards, etc). Counseled on dietary options including mediterranean diet and intermittent fasting Assessment & Plan (02/07/2018 2:55 PM WHEAT WASHER): Obesity is mild. Discussed the patient's BMI. The BMI is above average; BMI management plan is completed. General weight loss/lifestyle modification strategies discussed (elicit support from others; identify saboteurs; non-food rewards, etc). Counseled on intermittent fasting. Hyperlipidemia 04/07/2013 Assessment & Plan (05/06/2024 2:11 PM CDT): I discussed ASCVD risk. I spent 15 minutes counseling on CV risk reduction. Our discussion included the followin. Healthy eating habits, including low carbohydrate diet, low starch vegetables. 2. Regular aerobic exercise plan, which can include walking, jogging, treadmill, rowing, swimming biking. I recommend targeting the equivalent of 10K steps daily most days of the week. 3. Optimize BP control. Resume atorvastatin 40mg every day. Assessment & Plan (10/17/2022 3:42 PM CDT): I discussed ASCVD risk. I spent 15 minutes counseling on CV risk reduction. Our discussion included the followin. Healthy eating habits, including low carbohydrate diet, low starch vegetables. 2. Regular aerobic exercise plan, which can include walking, jogging, treadmill, rowing, swimming biking. I recommend targeting the equivalent of 10K steps daily most days of the week. 3. Optimize BP control. Continue current regimen. Assessment & Plan (04/21/2021 8:32 AM CDT): I discussed ASCVD risk. I spent 15 minutes counseling on CV risk reduction. Our discussion included the followin. Healthy eating habits, including low carbohydrate diet, low starch vegetables. 2. Regular aerobic exercise plan, which can include walking, jogging, treadmill, rowing, swimming biking. I recommend targeting the equivalent of 10K steps daily most days of the week. 3. Optimize BP control. Continue current regimen. Assessment & Plan (05/11/2020 9:03 AM CDT): I spent 15 minutes counseling her on CV risk reduction. Our discussion included the followin. Healthy eating habits, including low carbohydrate diet, low starch vegetables. We discussed intermittent fasting and paleo diets. 2. Regular aerobic exercise plan, which can include walking, jogging, treadmill, rowing, swimming biking. I recommend targeting the equivalent of 20K steps daily most days of the week. 3. Optimize BP control. Continue current regimen. Assessment & Plan (05/09/2018 8:54 AM CDT): I spent 15 minutes counseling her on CV risk reduction. Our discussion included the followin. Healthy eating habits, including low carbohydrate diet, low starch vegetables. We discussed intermittent fasting and paleo diets. 2. Regular aerobic exercise plan, which can include walking, jogging, treadmill, rowing, swimming biking. I recommend targeting the equivalent of 20K steps daily most days of the week. 3. Optimize BP control. 4. Taking aspirin. 5. Assessment of ASCVD risk and recommendations how to mitigate this risk.discussion was consistent with the 5 A s approach. She prefers to work on aggressive lifestyle changes Assessment & Plan (02/07/2018 2:35 PM WHEAT WASHER): I spent 15 minutes counseling her on CV risk reduction. Our discussion included the followin. Healthy eating habits, including low carbohydrate diet, low starch vegetables. We discussed intermittent fasting and paleo diets. 2. Regular aerobic exercise plan, which can include walking, jogging, treadmill, rowing, swimming biking. I recommend targeting the equivalent of 20K steps daily most days of the week. 3. Optimize BP control. 4. Taking aspirin. 5. Assessment of ASCVD risk and recommendations how to mitigate this risk.discussion was consistent with the 5 A s approach. Hypertension 02/14/2011 Assessment & Plan (06/17/2024 2:41 PM CDT): Hypertension is improving with treatment Continue current treatment regimen. Weight loss. Regular aerobic exercise. Continue current medications. Blood pressure will be reassessed at the next regular appointment. Assessment & Plan (05/06/2024 2:16 PM CDT): Hypertension is worsening Weight loss. Regular aerobic exercise. Ambulatory blood pressure monitoring. Blood pressure will be reassessed at the next regular appointment. Due to noncompliance, will resume her BP medication in stepwise fashion every 2 days. Counseled on compliance Assessment & Plan (02/27/2023 8:33 AM WHEAT WASHER): Hypertension is stable Continue current treatment regimen. Weight loss. Regular aerobic exercise. Continue current medications. Blood pressure will be reassessed at the next regular appointment. Assessment & Plan (10/17/2022 3:52 PM CDT): Hypertension is mild Continue current treatment regimen. Weight loss. Regular aerobic exercise. Continue current medications. Blood pressure will be reassessed at the next regular appointment. Assessment & Plan (04/21/2021 8:31 AM CDT): Hypertension is stable Continue current treatment regimen. Weight loss. Regular aerobic exercise. Continue current medications. Ambulatory blood pressure monitoring. Blood pressure will be reassessed at the next regular appointment. Assessment & Plan (10/18/2020 8:30 AM CDT): Hypertension is improving with treatment Continue current treatment regimen. Weight loss. Regular aerobic exercise. Continue current medications. Ambulatory blood pressure monitoring. Blood pressure will be reassessed at the next regular appointment. Assessment & Plan (05/11/2020 9:04 AM CDT): Hypertension is improving with treatment Continue current treatment regimen. Weight loss. Regular aerobic exercise. Continue current medications. Blood pressure will be reassessed at the next regular appointment. Assessment & Plan (04/01/2020 9:20 AM WHEAT WASHER): Hypertension is uncontrolled Continue current treatment regimen. Weight loss. Regular aerobic exercise. Medication changes per orders. Ambulatory blood pressure monitoring. Blood pressure will be reassessed 6 weeks.. Resume Amlodipine Assessment & Plan (02/10/2020 8:27 AM WHEAT WASHER): Hypertension is uncontrolled Weight loss. Regular aerobic exercise. Medication changes per orders. Ambulatory blood pressure monitoring. Blood pressure will be reassessed 6 weeks. Gently uptitrate dose telmisartan to 60 mg every day for 1 week, then increasr to 80 mg QD Assessment & Plan (05/09/2018 8:51 AM CDT): Hypertension is uncontrolled. Weight loss. Regular aerobic exercise. Ambulatory blood pressure monitoring. Begin ARB Blood pressure will be reassessed in 3 months. Assessment & Plan (02/07/2018 2:35 PM WHEAT WASHER): Hypertension is controlled. Continue current treatment regimen. Weight loss. Regular aerobic exercise. Continue current medications. Blood pressure will be reassessed at the next regular appointment. Resolved Problems Problem Noted Date Diagnosed Date Resolved Date Cerebrovascular accident (CV A) of left thalamus 02/10/2020 03/30/2020 Assessment & Plan (02/10/2020 8:32 AM WHEAT WASHER): Recent DX on Brain MRI 01/29/20. Likely on basis of uncontrolled HTN. She has scheduled F/U with neurology. No residual deficit. Abnormal liver function tests 09/15/2014 05/09/2018 Overview (02/07/2018): Assessment & Plan (02/07/2018 2:34 PM WHEAT WASHER): Mild when last checked. Benign exam. Check labs. Immunizations Immunization Administration Dates Next Due Influenza, Quadrivalent, Spl it, Preservative Free, Intramuscular 12/23/2021,11/07/2019,02/05/2017 Influenza, Trivalent, Preser vative Free, Intramuscular 11/30/2023,12/06/2013,12/06/2012,12/06 Moderna SARS-CoV-2 Monovalen t Vaccination (12+ YRS) 05/05/2020 Tdap 04/07/2013 Social History Tobacco Use Types Packs/Day Years Used Date Smoking Tobacco: Never Smokeless Tobacco: Never Tobacco Cessation:Counseling Given: Not Answered Alcohol Use Standard Drinks/Week Comments Yes 0 (1 standard drink = 0.6 oz pur e alcohol) social AUDIT-C Answer Date Recorded Q1: How often do you have a drink containing alc ohol? Monthly or less 05/06/2024 Q2: How many drinks containi ng alcohol do you have on a typical day when you are drinking? 1 or 2 05/06/2024 Q3: How often do you have si x or more drinks on one occasion? Never 05/06/2024 PHQ-2 Answer Date Recorded PHQ-2 Total Score (If total score is 3 or more points, staff should administer the PHQ-9) 0 05/06/2024 Exercise Vital Sign Answer Date Recorde d On average, how many days pe r week do you engage in moderate to strenuous exercise (like a brisk walk)? 3 days 05/06/2024 On average, how many minutes do you engage in exercise at this level? 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; 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 on bre e Last Filed Vital Signs Vital Sign Reading Time Taken Comments Blood Pressure 128/82 06/17/2024 2:28 PM CDT Pulse 80 06/17/2024 2:28 PM CDT Temperature 36.6 C (97.9 F) 06/17/2024 2:28 PM CDT Respiratory Rate - - Oxygen Saturation 98% 06/17/2024 2:28 PM CDT Inhaled Oxygen Concentration - - Weight 81.2 kg (179 lb) 06/17/2024 2:28 PM CDT Height 156.2 cm (5' 1.5) 06/17/2024 2:28 PM CDT Body Mass Index 33.27 06/17/2024 2:28 PM CDT Plan of Treatment Not on file Procedures Procedure Name Priority Date/Time Associated Diagnosis Comments HEMOGLOBIN A1C Routine 06/16/2024 9:06 AM CDT Annual physical exam Diabetes mellitus screening TSH Routine 06/16/2024 9:06 AM CDT Annual physical exam Primary hypertension Pure hypercholesterolemia LIPID PANEL Routine 06/16/2024 9:06 AM CDT Annual physical exam Primary hypertension Pure hypercholesterolemia COMPREHENSIVE METABOLIC PANEL Routine 06/16/2024 9:06 AM CDT Annual physical exam Primary hypertension Pure hypercholesterolemia Diabetes mellitus screening CBC WITH AUTO DIFFERENTIAL Routine 06/16/2024 9:06 AM CDT Annual physical exam Primary hypertension Pure hypercholesterolemia HEPATITIS B CORE ANTIBODY, TOTAL Routine 06/16/2024 9:06 AM CDT HEPATITIS B SURFACE ANTIGEN Routine 06/16/2024 9:06 AM CDT HEPATITIS B SURFACE ANTIBODY (IMMUNE STATUS) Routine 06/16/2024 9:06 AM CDT SCREENING MAMMOGRAM BILATERAL W JONA Schedule Routine, Read Routine (OP Routine) 05/06/2024 1:45 PM CDT Screening mammogram, encounter for HEPATITIS C ANTIBODY Routine 03/16/2018 10:58 AM WHEAT WASHER Abnormal liver function tests Need for hepatitis C screening test from Last 3 Months or Most Recently Relevant to Health Maintenance Results * CBC with auto differential (06/16/2024 9:06 AM CDT) WBC 6.5 3.8 - 10.8 Thousand/u L [facility] RBC, POC 4.89 3.80 - 5.10 Million/uL [facility] Hgb 14.5 11.7 - 15.5 g/dL [facility] Hct 44.4 35.0 - 45.0 % [facility] MCV 90.8 80.0 - 100.0 fL [facility] MCH 29.7 27.0 - 33.0 pg [facility] MCHC 32.7 32.0 - 36.0 g/dL [facility] Comment: For adults, a slight decrease in the calculated MCHC value (in the range of 30 to 32 g/dL) is most likely not clinically significant; however, it should be interpreted with caution in correlation with other red cell parameters and the patient's clinical condition. Rdw 13.7 11.0 - 15.0 % [facility] Platelets 243 140 - 400 Thousand/u L [facility] MPV 11.5 7.5 - 12.5 fL [facility] Neutrophils, abs 4,063 1,500 - 7,800 cells/uL [facility] Lymphocytes, abs 1,671 850 - 3,900 cells/uL [facility] Monocyte abs 468 200 - 950 cells/uL [facility] Eosinophils, abs 221 15 - 500 cells/uL [facility] Basophils, abs 78 0 - 200 cells/uL [facility] Neutrophils 62.5 % [facility] Lymphocyte pct 25.7 % [facility] Monocytes 7.2 % [facility] Eosinophils 3.4 % [facility] Basophils 1.2 % [facility] Blood 06/16/2024 9:06 AM CDT 06/16/2024 9:07 AM CDT Narrative [facility] - 06/17/2024 4:08 AM CDT FASTING:YES FASTING: YES Tunde Espinosa MD LAB BLOOD ORDERABLES Latoya l Result Performing Organization Address [facility] Co de Phone Number [facility] [address] [place] [address] * Hepatitis B core antibody, total (06/16/2024 9:06 AM CDT) Hep B core IgG/IgM NON-REACTI VE NON-REACTI VE [facility] Comment: For additional information, please refer to http://education.[employer]/faq/OIF087 (This link is being provided for informational/ educational purposes only.) 06/16/2024 9:06 AM CDT 06/16/2024 9:07 AM CDT Narrative [facility] - 06/17/2024 4:08 AM CDT FASTING:YES FASTING: YES Tunde Espinosa MD LAB MICROBIOLOGY - GENERA L ORDERABLES Final Result Performing Organization Address [facility] de Phone Number [facility] [address] [place] [address] * (ABNORMAL) Hepatitis B surface antibody (immune status) (06/16/2024 9:06 AM CDT) Pathologist [facility] HBsAb (immune status) REACTIVE(A ) NON-REACTI VE [facility] 06/16/2024 9:06 AM CDT 06/16/2024 9:07 AM CDT Narrative [facility] - 06/17/2024 4:08 AM CDT FASTING:YES FASTING: YES Tunde Espinosa MD LAB MICROBIOLOGY - GENERA L ORDERABLES Final Result Performing Organization Address [facility] Co de Phone Number [facility] [address] [place] [address] * Hepatitis B Surface Antigen (06/16/2024 9:06 AM CDT) [facility] HepBsAg NON-REACTI VE NON-REACTI VE [facility] Comment: For additional information, please refer to http://education.[employer]/faq/DGK004 (This link is being provided for informational/ educational purposes only.) 06/16/2024 9:06 AM CDT 06/16/2024 9:07 AM CDT Narrative [facility] - 06/17/2024 4:08 AM CDT FASTING:YES FASTING: YES Tunde Espinosa MD LAB MICROBIOLOGY - GENERA L ORDERABLES Final Result Performing Organization Address [facility] Co de Phone Number [facility] [address] [place] [address] * TSH (06/16/2024 9:06 AM CDT) [facility] TSH 0.49 0.40 - 4.50 mIU/L [facility] Blood 06/16/2024 9:06 AM CDT 06/16/2024 9:07 AM CDT Narrative [facility] - 06/17/2024 4:08 AM CDT FASTING:YES FASTING: YES Tunde Espinosa MD LAB BLOOD ORDERABLES Latoya l Result Performing Organization Address [facility]/ZIP Co de Phone Number [facility] [address] [place] [address] * (ABNORMAL) Hemoglobin A1c (06/16/2024 9:06 AM CDT) [facility] Hgb A1C 5.9(H) <5.7 % of total Hgb [facility] Comment: For someone without known diabetes, a hemoglobin A1c value between 5.7% and 6.4% is consistent with prediabetes and should be confirmed with a follow-up test. For someone with known diabetes, a value <7% indicates that their diabetes is well controlled. A1c targets should be individualized based on duration of diabetes, age, comorbid conditions, and other considerations. This assay result is consistent with an increased risk of diabetes. Currently, no consensus exists regarding use of hemoglobin A1c for diagnosis of diabetes for children. Blood 06/16/2024 9:06 AM CDT 06/16/2024 9:07 AM CDT Narrative [facility] - 06/17/2024 4:08 AM CDT FASTING:YES FASTING: YES Tunde Espinosa MD LAB BLOOD ORDERABLES Latoya l Result [facility] [address] [place] [address] * Lipid panel (06/16/2024 9:06 AM CDT) [facility] Cholesterol 181 <200 mg/dL [facility] HDL 58 > OR = 50 mg/dL [facility] Triglycerides 141 <150 mg/dL [facility] LDL 99 mg/dL (calc) [facility] Comment: Reference range: <100 Desirable range <100 mg/dL for primary prevention; <70 mg/dL for patients with CHD or diabetic patients with > or = 2 CHD risk factors. LDL-C is now calculated using the Bogdan-Howell calculation, which is a validated novel method providing better accuracy than the Friedewald equation in the estimation of LDL-C. Bogdan SS et al. LEANDRO. 2013;310(19): 9312-1082 (http://education.[employer]/faq/THD202) Chol/HDL ratio 3.1 <5.0 (calc) [facility] Non-HDL, (LDL+VLDL) 123 <130 mg/dL (calc) [facility] Comment: For patients with diabetes plus 1 major ASCVD risk factor, treating to a non-HDL-C goal of <100 mg/dL (LDL-C of <70 mg/dL) is considered a therapeutic option. Blood 06/16/2024 9:06 AM CDT 06/16/2024 9:07 AM CDT Narrative [facility] - 06/17/2024 4:08 AM CDT FASTING:YES FASTING: YES us Tunde Espinosa MD LAB BLOOD ORDERABLES Latoya wagoner Result [facility] [address] [address] * Comprehensive metabolic panel (06/16/2024 9:06 AM CDT) [facility] Glucose 99 65 - 99 mg/dL [facility] Comment: Fasting reference interval BUN 12 7 - 25 mg/dL [facility] Creatinine 0.79 0.50 - 1.05 mg/dL [facility] eGFR 85 > OR = 60 mL/min/1.7 3m2 [facility] BUN/creat ratio SEE NOTE: 6 - 22 (calc) [facility] Comment: Not Reported: BUN and Creatinine are within reference range. Sodium 137 135 - 146 mmol/L [facility] Potassium, pl 3.9 3.5 - 5.3 mmol/L [facility] Chloride 100 98 - 110 mmol/L [facility] CO2 30 20 - 32 mmol/L [facility] Calcium 9.7 8.6 - 10.4 mg/dL [facility] Protein, sr 7.2 6.1 - 8.1 g/dL [facility] Albumin 4.4 3.6 - 5.1 g/dL [facility] GLOBULIN 2.8 1.9 - 3.7 g/dL (calc) [facility] Alb/glob ratio 1.6 1.0 - 2.5 (calc) [facility] Bilirubin, total 0.7 0.2 - 1.2 mg/dL [facility] Alk phos 89 37 - 153 U/L [facility] AST 24 10 - 35 U/L [facility] ALT (SGPT) 25 6 - 29 U/L [facility] Blood 06/16/2024 9:06 AM CDT 06/16/2024 9:07 AM CDT Narrative [facility] - 06/17/2024 4:08 AM CDT FASTING:YES FASTING: YES us Tunde Espinosa MD LAB BLOOD ORDERABLES Latoya wagoner Result [facility] [address] [address] * Screening Mammogram Bilateral [place] (05/06/2024 1:45 PM CDT) Anatomical Region Laterality Modality Breast Bilateral Mammography Narrative 05/07/2024 3:59 PM CDT Mammogram Technique: Bilateral Digital Breast Tomosynthesis, Bilateral C-view 2D Screening mammogram. Views obtained: bilateral craniocaudal and bilateral mediolateral oblique. Computer Aided Detection was performed. Mammogram Findings: The present examination has been compared to prior imaging studies performed at [facility] on 03/05/2018, and at [facility] on 02/07/2018 and 05/19/2020. The breasts are heterogeneously dense, which may obscure small masses. There is no suspicious abnormality in either breast. Impression: There is no mammographic evidence of malignancy. Annual screening mammography is recommended. If supplemental screening is desired, breast MRI would be recommended in this patient with heterogeneously dense breasts. OVERALL FINAL ASSESSMENT: BI-RADS CATEGORY 1: Negative. Procedure Note Zachary Waterman MD - 05/07/2024 Mammogram Technique: Bilateral Digital Breast Tomosynthesis, Bilateral C-view 2D Screening mammogram. Views obtained: bilateral craniocaudal and bilateral mediolateral oblique. Computer Aided Detection was performed. Mammogram Findings: The present examination has been compared to prior imaging studies performed at [facility] on 03/05/2018, and at [facility] on 02/07/2018 and 05/19/2020. The breasts are heterogeneously dense, which may obscure small masses. There is no suspicious abnormality in either breast. Impression: There is no mammographic evidence of malignancy. Annual screening mammography is recommended. If supplemental screeningis desired, breast MRI would be recommended in this patient with heterogeneously dense breasts. OVERALL FINAL ASSESSMENT: BI-RADS CATEGORY 1: Negative. Self Screening Mammogram IMG MAMMO PROCEDURES Fi nal Result * Hepatitis C antibody (03/16/2018 10:58 AM WHEAT WASHER) Hep C Ab NON-REACTI VE NON-REACTI VE [facility] [place] SIGNAL TO CUT-OFF 0.03 <1.00 [facility] [place] Blood specimen (specimen) 03/16/2018 10:58 AM WHEAT WASHER 03/16/2018 10:59 AM WHEAT WASHER Narrative [facility] - 03/18/2018 10:16 AM WHEAT WASHER FASTING:YES FASTING: YES Resulting Agency Comment Performing Organization Information: Site ID: SRI Name: [facility] Address: [address] [place] [address] [place] [address] Director: Davie Gregorio D.O., AMY Tunde Espinosa MD LAB MICROBIOLOGY - GENERA L ORDERABLES Final Result [facility] [place] from Last 3 Months or Most Recently Relevant to Health Maintenance [place] [address] [facility] CIGNA CIGNA CIGNA Care Teams Safety Teacher Relationship Specialty Start Date End Date Tunde Espinosa MD [facility] [address] [place] [address] PCP - General 06/01/16 Jacque Hunter MD [address] [facility] [phone] [place] [address] Consulting Physician Obstetrics and Gynecology 02/07/18 Diego Elliott MD [address] [address] Referring Physician Neurology 02/10/20
--- OUTSIDE RECORDS SUMMARY | 2024-08-18 09:23 | XMS_ITS | Encounter Summary ---
Author Organization [facility] Clinical [facility] Address [facility] [facility] [address] [place] [address] Phone Care Team Providers Care Apparel Manufacture Instructor Name Role Phone Tunde Espinosa MD Primary Care Provider [phone] Jacque Hunter MD Unavailable [phone] Diego Elliott MD Unavailable [phone] Encounter Details Date Type Department Care Team (Late st Contact Info) Description 06/17/2024 Results Follow-Up [address] [facility] [address] [place] [address] Tunde Espinosa MD [address] [place] [id number] CBC with auto differential, Comprehensive metabolic panel, Lipid panel, Additional followed-up results: 5 Social History Tobacco Use Types Packs/Day Years Used Date Smoking Tobacco: Never Smokeless Tobacco: Never Alcohol Use Standard Drinks/Week Comments Yes 0 [...] on file Legal Sex Female 2:16 AM NEONATAL INTENSIVE CARE UNIT NURSE Gender Identity Female 02/09/2020 6:22 PM NEONATAL INTENSIVE CARE UNIT NURSE Sexual Orientation Straight 02/09/2020 6: 22 PM NEONATAL INTENSIVE CARE UNIT NURSE 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; 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 on bre e documented as of this encounter Plan of Treatment Not on file documented as of this encounter Visit Diagnoses Not on filedocumented in this encounter Care Teams Apparel Manufacture Instructor Relationship Specialty Start Date End Date Tunde Espinosa MD [address] [place] [address] [address] [address] PCP - General 06/01/16 Jacque Hunter MD [address] [facility] [phone] [place] [address] Consulting Physician Obstetrics and Gynecology 02/07/18 Diego Elliott MD [address] [address] Referring Physician Neurology 02/10/20 documented as of this encounter
--- OUTSIDE RECORDS SUMMARY | 2024-08-18 09:23 | XMS_ITS | Clinical Summary ---
Author Organization [facility] Clinical [facility] Address [address] [place] [address] Care Team Providers Care Local Sales Associate Name Role Phone Tunde Espinosa MD Primary Care Provider [phone] Jacque Hunter MD Unavailable [phone] Diego Elliott MD Unavailable Allergies Active Allergy Reactions Criticality Noted Date [...] appointment Assessment & Plan (02/27/2023 8:29 AM ELECTRONIC WARFARE TECHNICAL): Recent mild FPG elevation. Subsequent normal HBA1c. Counseled on regular exercise and mediterranean diet. Recheck annually. History of thalamic stroke 03/30/2020 Assessment & Plan (04/01/2020 9:08 AM ELECTRONIC WARFARE TECHNICAL): Continue efforts to optimize CV risk. Class 1 obesity with body ma ss index (BMI) of 33.0 to 33.9 in adult 06/01/2016 Overview (02/07/2018): Assessment & Plan (05/06/2024 2:08 PM CDT): Obesity is unchanged. Discussed the patient's BMI. The BMI is above average; BMI management plan is completed. General weight loss/lifestyle modification strategies discussed. Assessment & Plan (02/27/2023 8:30 AM ELECTRONIC WARFARE TECHNICAL): Obesity is unchanged. Discussed the patient's BMI. [...] etc). Assessment & Plan (04/01/2020 9:08 AM ELECTRONIC WARFARE TECHNICAL): Obesity is unchanged. Discussed the patient's BMI. The BMI is above average; BMI management plan is completed. General weight loss/lifestyle modification strategies discussed (elicit support from others; identify saboteurs; non-food rewards, etc). Counseled on dietary options including mediterranean diet and intermittent fasting Assessment & Plan (02/07/2018 2:55 PM ELECTRONIC WARFARE TECHNICAL): Obesity is mild. Discussed the patient's BMI. [...] changes Assessment & Plan (02/07/2018 2:35 PM ELECTRONIC WARFARE TECHNICAL): I spent 15 minutes counseling her on [...] compliance Assessment & Plan (02/27/2023 8:33 AM ELECTRONIC WARFARE TECHNICAL): Hypertension is stable Continue current treatment regimen. [...] appointment. Assessment & Plan (04/01/2020 9:20 AM ELECTRONIC WARFARE TECHNICAL): Hypertension is uncontrolled Continue current treatment regimen. Weight loss. Regular aerobic exercise. Medication changes per orders. Ambulatory blood pressure monitoring. Blood pressure will be reassessed 6 weeks.. Resume Amlodipine Assessment & Plan (02/10/2020 8:27 AM ELECTRONIC WARFARE TECHNICAL): Hypertension is uncontrolled Weight loss. Regular aerobic [...] months. Assessment & Plan (02/07/2018 2:35 PM ELECTRONIC WARFARE TECHNICAL): Hypertension is controlled. Continue current treatment regimen. Weight loss. Regular aerobic exercise. Continue current medications. Blood pressure will be reassessed at the next regular appointment. Resolved Problems Problem Noted Date Diagnosed Date Resolved Date Cerebrovascular accident (CV A) of left thalamus 02/10/2020 03/30/2020 Assessment & Plan (02/10/2020 8:32 AM ELECTRONIC WARFARE TECHNICAL): Recent DX on Brain MRI 01/29/20. Likely on basis of uncontrolled HTN. She has scheduled F/U with neurology. No residual deficit. Abnormal liver function tests 09/15/2014 05/09/2018 Overview (02/07/2018): Assessment & Plan (02/07/2018 2:34 PM ELECTRONIC WARFARE TECHNICAL): Mild when last checked. Benign exam. Check labs. Encounters Date Type Department Care Team Description 06/17/2024 2:30 PM CDT Office Visit [place] [address] [place] [phone] Tunde Espinosa MD Primary hypertension (Primary Dx); IFG (impaired fasting glucose) 06/17/2024 Results Follow-Up [place] [id number] [phone] Tunde Espinosa MD CBC with auto differential, Comprehensive metabolic panel, Lipid panel, Additional followed-up results: 5 from Last 3 Months Immunizations Immunization Administration Dates Next Due Influenza, Quadrivalent, Spl it, Preservative Free, Intramuscular 12/23/2021,11/07/2019,02/05/2017 Influenza, Trivalent, Preser vative Free, Intramuscular 11/30/2023,12/06/2013,12/06/2012,12/06 Moderna SARS-CoV-2 Monovalen t Vaccination (12+ YRS) 05/05/2020 Tdap 04/07/2013 Surgical History Surgery Date Site/Laterality Comments MI DELIVERY ONLY Section - (Added by TW Conv) MI TOTAL ABDOMINAL HYSTERECT W/WO RMVL TUBE OVARY Hysterectomy - (Added by TW Conv) Medical History Medical History Date Comments Personal history of other me ntal and behavioral disorders History of anxiety disorder - (Added by TW Conv) Cerebrovascular accident (CV A) of left thalamus (HCC) 02/10/2020 Family History Medical History Relation Name Comments No Known Problems Father Stroke Maternal Grandmother Coronary artery disease Mother Hypertension Mother Relation Name Status Comments Father Maternal Grandmother Mother Social History Tobacco Use Types Packs/Day Years [...] on file Legal Sex Female 2:16 AM ELECTRONIC WARFARE TECHNICAL Gender Identity Female 02/09/2020 6:22 PM ELECTRONIC WARFARE TECHNICAL Sexual Orientation Straight 02/09/2020 6: 22 PM ELECTRONIC WARFARE TECHNICAL 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; 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 on bre e Obstetrics History Last Filed Vital Signs Vital Sign Reading [...] 06/17/2024 2:28 PM CDT Plan of Treatment Health Maintenance Due Date Last Done Comments Colon Cancer Screening-Colonoscopy 1960 Zoster Vaccine (1 of 2) 10/13/2011 DTaP/Tdap/Td Vaccine (2 - Td or Tdap) 04/08/2023 04/07/2013 Covid-19 Vaccine ( season) 2023 12/23/2021, 01/14/2021, 06/01/2020, Additional history exists Breast Cancer Screening-Mammogram 05/06/2025 05/06/2024, 05/19/2020, 02/07/2018, Additional history exists Depression Screening 05/06/2025 05/06/2024, 10/17/2022, 04/21/2021, Additional history exists Regular Well Visit/Exam 18-64 05/06/2025 05/06/2024, 10/17/2022, 04/21/2021, Additional history exists Hepatitis C Screening Completed 03/16/2018 Influenza Vaccine Completed 11/30/2023, , 11/07/2019, Additional history exists Hepatitis B Screening Completed 06/16/2024 Pneumococcal vaccine <65 Aged Out No longer eligible based on patient's age to complete this topic Procedures Procedure Name Priority Date/Time Associated Diagnosis [...] HEPATITIS C ANTIBODY Routine 03/16/2018 10:58 AM ELECTRONIC WARFARE TECHNICAL Abnormal liver function tests Need for hepatitis [...] MD LAB BLOOD ORDERABLES Latoya l Result [facility] [address] [place] [address] * Hepatitis B core antibody, total (06/16/2024 9:06 AM CDT) Hep B core IgG/IgM NON-REACTI VE NON-REACTI VE [facility] Comment: For additional information, please refer to http://ÜberResearch.NotesFirst/faq/BQQ714 (This link is being provided for informational/ educational purposes only.) 06/16/2024 9:06 AM CDT 06/16/2024 9:07 AM CDT Narrative [facility] - 06/17/2024 4:08 AM CDT FASTING:YES FASTING: YES Tunde Espinosa MD LAB MICROBIOLOGY - [employer] L ORDERABLES Final Result Performing Organization Address [facility] de Phone Number [facility] [address] [place] [address] * (ABNORMAL) Hepatitis B surface antibody (immune status) (06/16/2024 9:06 AM CDT) HBsAb (immune status) REACTIVE(A ) NON-REACTI VE [facility] 06/16/2024 9:06 AM CDT 06/16/2024 9:07 AM CDT Narrative [facility] - 06/17/2024 4:08 AM CDT FASTING:YES FASTING: YES Tunde Espinosa MD LAB MICROBIOLOGY - GENERA L ORDERABLES Final Result Performing Organization Address [facility] de Phone Number [facility] [address] [place] [address] * Hepatitis B Surface Antigen (06/16/2024 9:06 AM CDT) HepBsAg NON-REACTI VE NON-REACTI VE [facility] Comment: For additional information, please refer to http://Linkfluence/faq/ZLO119 (This link is being provided for informational/ educational purposes only.) 06/16/2024 9:06 AM CDT 06/16/2024 9:07 AM CDT Narrative [facility] - 06/17/2024 4:08 AM CDT FASTING:YES FASTING: YES Tunde Espinosa MD LAB MICROBIOLOGY - GENERA L ORDERABLES Final Result Performing Organization Address [facility] de Phone Number [facility] [address] [place] [address] * TSH (06/16/2024 9:06 AM CDT) Pathologist [facility] TSH 0.49 0.40 - 4.50 mIU/L [facility] Blood 06/16/2024 9:06 AM CDT 06/16/2024 9:07 AM CDT Narrative [facility] - 06/17/2024 4:08 AM CDT FASTING:YES FASTING: YES Tunde Espinosa MD LAB BLOOD ORDERABLES Latoya l Result Performing Organization Address [facility] de Phone Number [facility] [address] [place] [address] * (ABNORMAL) Hemoglobin A1c (06/16/2024 9:06 AM CDT) Pathologist [facility] Hgb A1C 5.9(H) <5.7 % of total Hgb [facility] Comment: For someone without known diabetes, [...] MD LAB BLOOD ORDERABLES Latoya l Result [facility] [address] [place] [address] * Lipid panel (06/16/2024 9:06 AM CDT) Cholesterol 181 <200 mg/dL [facility] [...] factors. LDL-C is now calculated using the Nicolás calculation, which is a validated novel method providing better accuracy than the Friedewald equation in the estimation of LDL-C. Bogdan SS et al. LEANDRO. 2013;310(19): 9662-9661 (http://education.Centripetal Software/faq/JCH615) Chol/HDL ratio 3.1 <5.0 (calc) [facility] [...] MD LAB BLOOD ORDERABLES Latoya l Result [facility] [address] [address] * Comprehensive metabolic panel (06/16/2024 9:06 AM CDT) Glucose 99 65 - 99 mg/dL [facility] [...] MD LAB BLOOD ORDERABLES Latoya l Result [facility] [address] [place] [address] * Screening Mammogram Bilateral W Jona (05/06/2024 1:45 PM CDT) Anatomical Region Laterality Modality Breast Bilateral Mammography Narrative 05/07/2024 3:59 PM CDT Mammogram Technique: Bilateral Digital Breast Tomosynthesis, Bilateral C-view 2D Screening mammogram. Views obtained: bilateral craniocaudal and bilateral mediolateral oblique. Computer Aided Detection was performed. Mammogram Findings: The present examination has been compared to prior imaging studies performed at [facility] on 03/05/2018, and at [facility] on 02/07/2018 and 05/19/2020. The breasts are [...] compared to prior imaging studies performed at [facility] on 03/05/2018, and at [facility] on 02/07/2018 and 05/19/2020. The breasts are heterogeneously dense, which may obscure small masses. There is no suspicious abnormality in either breast. Impression: There is no mammographic evidence of malignancy. Annual screening mammography is recommended. If supplemental screeningis desired, breast MRI would be recommended in this patient with heterogeneously dense breasts. OVERALL FINAL ASSESSMENT: BI-RADS CATEGORY 1: Negative. us Self Screening Mammogram IMG MAMMO PROCEDURES Fi nal Result * Hepatitis C antibody (03/16/2018 10:58 AM ELECTRONIC WARFARE TECHNICAL) Hep C Ab NON-REACTI VE NON-REACTI VE [facility] [place] SIGNAL TO CUT-OFF 0.03 <1.00 [facility] [place] Blood specimen (specimen) 03/16/2018 10:58 AM ELECTRONIC WARFARE TECHNICAL 03/16/2018 10:59 AM ELECTRONIC WARFARE TECHNICAL Narrative [facility] - 03/18/2018 10:16 AM ELECTRONIC WARFARE TECHNICAL FASTING:YES FASTING: YES Resulting Agency Comment Performing Organization Information: Site ID: SRI Name: [facility] Address: [address] [place] [address] [place] [address] Director: Davie Grgeorio D.O., MPH us Tunde Espinosa MD LAB MICROBIOLOGY - GENERA L ORDERABLES Final Result [facility] [place] from Last 3 Months or Most Recently Relevant to Health Maintenance [place] [address] Care Teams Local Sales Associate Relationship Specialty Start Date End Date Tunde Espinosa MD [address] [place] [address] [address] [address] PCP - General 06/01/16 Jacque Hunter MD [facility] [address] [phone] [place] [address] Consulting Physician Obstetrics and Gynecology 02/07/18 Diego Elliott MD [address] [address] Referring Physician Neurology 02/10/20
--- NOTE | 2024-08-18 09:37 | ECG_ITS ---
Test Date: 2024-08-18 09:25:38 Measurements Intervals [place] Rate: 110 P: 29 AR: 144 QRS: 6 QRSD: 86 T: 40 QT: 325 QTc: 440 Interpretive Statements SINUS TACHYCARDIA POSSIBLE LEFT ATRIAL ENLARGEMENT [-0.1mV P-WAVE IN V1/V2] BORDERLINE ECG No previous ECG available for comparison Electronically Signed On 08-19-2024 09:51:35 CDT by Cade Delacruz M.D.
--- NOTE | 2024-08-18 09:40 | ED.GENADULT ---
HPI - General Adult General Chief complaint: Arrhythmia/Palpitations <Johanna Mcconnell - Last Filed: 08/18/24 14:22> Stated complaint: BP issues <Johanna Brooks June - Last Filed: 08/18/24 14:22> Time Seen by Provider: 08/18/24 09:20 <Johanna Brooks June,N - Last Filed: 08/18/24 14:22> Mode of arrival: ambulatory <Johanna Brooks June, - Last Filed: 08/18/24 14:22> History of Present Illness HPI narrative: Sasha Carrillo is a 63 y/o female with PMHx of HTN, HLD who presents with reports of feeling off, sort of generalized weak, almost near syncope that started 2 days ago off and on. Yesterday she had some intermittent sharp right sided chest pain and feeling a little off she started checking her b/p and her heart rate and noticed that her heart rate went between the 60's up to 128 and her b/p was running high. Today she noticed that her b/p was still elevated even after taking her b/p medication and still not feeling completely normal so decided to get checked out. <Johanna Mcconnell - Last Filed: 08/18/24 14:22> Related Data Home medications: Home Medications ?Medication ?Instructions ?Recorded ?Confirmed ?Last Taken ?Type telmisartan 40 mg tablet 60 mg PO QPM 02/11/20 Unknown History <Johanna Mcconnell - Last Filed: 08/18/24 14:22> Allergies/adverse reactions: Allergies Allergy/AdvReac Type Severity Reaction Status Date / Time lisinopril AdvReac Cough Verified 08/18/24 10:07 <Johanna Brooks June, - Last Filed: 08/18/24 14:22> Review of Systems Review of Systems: All systems reviewed & are unremarkable except as noted in HPI and below <Johanna Mcconnell - Last Filed: 08/18/24 14:22> PMFSH Past Medical History Medical History: Medical History Hyperlipidemia Stroke Paresthesias Essential hypertension <Johanna Mcconnell, RETURNED GOODS INSPECTOR - Last Filed: 08/18/24 14:22> Surgical History Surgical History: Surgical History History of partial hysterectomy History of 2 sections History of tonsillectomy and adenoidectomy <Johanna Mcconnell APRN - Last Filed: 08/18/24 14:22> Family History Family History: Family History Mother Cerebrovascular accident Diabetes mellitus Hypertension Grandparent Cerebrovascular accident <Johanna Mcconnell APRN - Last Filed: 08/18/24 14:22> Social History Social History: Social History Social History: The patient lives in [place], [place] with her children. She works for a [employer] in [place] but has been working at home since April 2019. No alcohol, tobacco, or illicit substance use. She designates her son, Xavier, as her surrogate decision maker and she wishes to be a full code. Gender identity (if verbalized by the patient): Female Spiritual care concerns: No <Johanna Mcconnell APRN - Last Filed: 08/18/24 14:22> Exam Narrative: GENERAL: Well-appearing, well-nourished, and in no acute distress. HEAD: Normocephalic, atraumatic. EYES: PERRLA and EOMI. ENT: Nares clear, no rhinorrhea or epistaxis. Mucous membranes moist. Oropharynx without tonsillar hypertrophy exudate or other lesions. NECK: Supple. No adenopathy or masses. No carotid bruits or JVD CHEST: Clear to auscultation. No respiratory distress. No wheezes rales or rhonchi HEART: Regular rate and rhythm. No murmur heard. Normal peripheral pulses. ABDOMEN: Soft, nontender, nondistended, normal active bowel sounds. EXTREMITIES: Normal range of motion. No edema. SKIN: Warm, dry, no rash. NEURO: No focal deficits. Alert and oriented x3. PSYCH: Normal mood and affect. <Johanna Mcconnell APRN - Last Filed: 08/18/24 14:22> Course CHEMICAL LABORATORY ASSISTANT/PA Physician Supervision I agree with midlevel documentation; I performed the medical decision making component of this evaluation. <Maude Garcia MD - Last Filed: 08/18/24 15:55> Vital Signs Vital signs: Vital Signs Temperature 97.9 F 08/18/24 09:22 Pulse Rate 110 H 08/18/24 09:22 Respiratory Rate 18 08/18/24 09:22 Blood Pressure 178/103 H 08/18/24 09:22 Pulse Oximetry 99 08/18/24 09:22 Oxygen Delivery Room Air 08/18/24 09:22 Temperature 97.9 F 08/18/24 09:22 Pulse Rate 90 08/18/24 14:30 Respiratory Rate 16 08/18/24 14:30 Blood Pressure 125/86 08/18/24 14:30 Pulse Oximetry 99 08/18/24 14:30 Oxygen Delivery Room Air 08/18/24 09:22 <Johanna Mcconnell APRN - Last Filed: 08/18/24 14:22> Vital Signs Temperature 97.9 F 08/18/24 09:22 Pulse Rate 110 H 08/18/24 09:22 Respiratory Rate 18 08/18/24 09:22 Blood Pressure 178/103 H 08/18/24 09:22 Pulse Oximetry 99 08/18/24 09:22 Oxygen Delivery Room Air 08/18/24 09:22 Temperature 97.9 F 08/18/24 09:22 Pulse Rate 90 08/18/24 14:30 Respiratory Rate 16 08/18/24 14:30 Blood Pressure 125/86 08/18/24 14:30 Pulse Oximetry 99 08/18/24 14:30 Oxygen Delivery Room Air 08/18/24 09:22 <Maude Garcia MD - Last Filed: 08/18/24 15:55> Medical Decision Making MDM Narrative Medical decision making narrative: 63-year-old female who presents today with complaints of having elevated blood pressure readings at home even with taking her blood pressure medication. She states that she was feeling off and out of it that started 2 days ago. She states that her Apple watch was checking her heart rate to be up to the 120s and she was concerned. She states that she has had some intermittent right-sided chest pain maybe a little shortness of breath that started yesterday. Currently not having any symptoms. Concern for cardiac scan, pulmonary embolism, dehydration congestive heart failure, cardiac arrhythmia Plan to check cardiac workup including CTA of the chest CBC-no leukocytosis hemodynamically stable CMP-sodium 135, glucose 120, AST 44, ALT 37 Trop 1-negative Troponin 2-negative UA-positive for leukocytes-white blood cells 11-20 patient he denies any dysuria and urgency frequency denies any urinary symptoms at this time will not start treatment for urinary tract infection-the made patient aware of her findings on her urine if anything changes BNP-negative Chest x-ray-no cardiopulmonary findings CTA PE protocol-1. No pulmonary embolism or other acute cardiopulmonary disease. 2. Small sliding-type hiatal hernia. While waiting for her test results her blood pressure improved to normal tentative and heart rate below 100 resting comfortably in stretcher patient is updated on her lab results and her imaging results encouraged her to continue to monitor blood pressure at home and keep a log and have close follow-up with her primary care doctor regarding her symptoms and her evaluation here today. Patient is given strict return precautions if she develops chest pain/ shortness of breath/ or any other concerning symptoms to return to the ER> <Johanna Mcconnell, RETURNED GOODS INSPECTOR - Last Filed: 08/18/24 14:22> Vital Signs Vital Signs: Vital Signs Temperature 97.9 F 08/18/24 09:22 Pulse Rate 110 H 08/18/24 09:22 Respiratory Rate 18 08/18/24 09:22 Blood Pressure 178/103 H 08/18/24 09:22 Pulse Oximetry 99 08/18/24 09:22 Oxygen Delivery Room Air 08/18/24 09:22 Temperature 97.9 F 08/18/24 09:22 Pulse Rate 90 08/18/24 14:30 Respiratory Rate 16 08/18/24 14:30 Blood Pressure 125/86 08/18/24 14:30 Pulse Oximetry 99 08/18/24 14:30 Oxygen Delivery Room Air 08/18/24 09:22 Vitals reviewed by la <Johanna Mcconnell, RETURNED GOODS INSPECTOR - Last Filed: 08/18/24 14:22> Vital Signs Temperature 97.9 F 08/18/24 09:22 Pulse Rate 110 H 08/18/24 09:22 Respiratory Rate 18 08/18/24 09:22 Blood Pressure 178/103 H 08/18/24 09:22 Pulse Oximetry 99 08/18/24 09:22 Oxygen Delivery Room Air 08/18/24 09:22 Temperature 97.9 F 08/18/24 09:22 Pulse Rate 90 08/18/24 14:30 Respiratory Rate 16 08/18/24 14:30 Blood Pressure 125/86 08/18/24 14:30 Pulse Oximetry 99 08/18/24 14:30 Oxygen Delivery Room Air 08/18/24 09:22 <Maude Garcia MD - Last Filed: 08/18/24 15:55> Lab Data Lab results reviewed: Yes I reviewed the patient's lab results. <Johanna Mcconnell APRN - Last Filed: 08/18/24 14:22> Result diagrams: 08/18/24 09:45 08/18/24 09:45 <Johanna Mcconnell APRN - Last Filed: 08/18/24 14:22> Labs: Lab Results 08/18/24 08/18/24 08/18/24 Range/Units 09:45 10:56 12:47 WBC 6.4 (4.5-10.0) K/mm3 RBC 5.21 (4.2-5.4) M/mm3 Hgb 15.1 H (12.0-15.0) g/dL Hct 45.5 (37.0-47.0) % MCV 87.3 (80-100) fl MCH 29.0 (26-34) pg MCHC 33.2 (32-36) g/dl RDW 13.8 (11.5-14.5) % Plt Count 246 (150-375) k/mm3 MPV 11.1 H (7.4-10.4) fl Immature Gran % (Auto) 0.6 H (0-0.5) % Neut % (Auto) 62.2 (45.5-73.1) % Lymph % (Auto) 25.9 (18.3-44.2) % Dickinson % (Auto) 7.9 (2.6-8.5) % Eos % (Auto) 2.3 (0-4.4) % Baso % (Auto) 1.1 (0.2-1.2) % Lymph # (Auto) 1.67 (0.9-3.2) K/mm3 Dickinson # (Auto) 0.5 (0.1-0.6) K/mm3 Eos # (Auto) 0.2 (0-0.3) K/mm3 Baso # (Auto) 0.1 (0.0-0.1) K/mm3 Abs Immat Gran (auto) 0.04 H (0.00-0.031) K/mm3 Absolute Neuts (auto) 4.0 (1.3-6.7) K/mm3 Absolute Nucleated RBC 0.000 (0.0-0.012) K/mm3 Nucleated RBC % 0.0 (0.0-0.2) % PT 12.4 (11.1-14.7) Seconds INR 0.9 APTT 30.7 (22.3-36.8) Seconds Sodium 135 L (137-145) mmol/L Potassium 3.5 (3.4-5.0) mmol/L Chloride 98 (98-107) mmol/L Carbon Dioxide 26 (22-30) mmol/L Anion Gap 11 (4-12) mmol/L BUN 10 (7-17) mg/dL Creatinine 0.85 (0.7-1.0) mg/dL Estim Creat Clear Calc 57 ml/min Estimated GFR > 60 (59 - ) Glucose 120 H (65-110) mg/dL Calcium 9.9 (8.4-10.2) mg/dL Total Bilirubin 0.8 (0.2-1.3) mg/dL AST 44 H (14-36) U/L ALT 37 H (6-35) U/L Alkaline Phosphatase 107 (38-126) U/L Troponin I < 0.012 < 0.012 (0.000-0.034) ng/mL NT-Pro-B Natriuret Pep 65 (19.9-100) pg/mL Total Protein 8.7 H (6.3-8.2) g/dL Albumin 4.7 (3.5-5.1) g/dL Urine Color Yellow (Yellow) Urine Appearance Clear (Clear) Urine pH 7.0 (5.0-9.0) Ur Specific [place] 1.008 (1.001-1.035) Urine Protein Negative (Negative) mg/dL Urine Glucose (UA) Negative (Negative) mg/dL Urine Ketones Negative (Negative) mg/dL Ur Blood (Man) Negative (Negative) Urine Nitrate Negative (Negative) Urine Bilirubin Negative (Negative) Urine Urobilinogen 0.2 (<2.0) mg/dL Leukocyte Esterase Rfl 2+ H (Negative) THOMAS/UL Urine RBC 0-2 (0-2) /hpf Urine WBC 11-20 H (0-3) /hpf Ur Squamous Epith Cells Moderate (Few) /hpf Urine Bacteria Rare /hpf Urine Casts 0-2 <Johanna Brooks June, RETURNED GOODS INSPECTOR - Last Filed: 08/18/24 14:22> Lab Results 08/18/24 08/18/24 08/18/24 Range/Units 09:45 10:56 12:47 WBC 6.4 (4.5-10.0) K/mm3 RBC 5.21 (4.2-5.4) M/mm3 Hgb 15.1 H (12.0-15.0) g/dL Hct 45.5 (37.0-47.0) % MCV 87.3 (80-100) fl MCH 29.0 (26-34) pg MCHC 33.2 (32-36) g/dl RDW 13.8 (11.5-14.5) % Plt Count 246 (150-375) k/mm3 MPV 11.1 H (7.4-10.4) fl Immature Gran % (Auto) 0.6 H (0-0.5) % Neut % (Auto) 62.2 (45.5-73.1) % Lymph % (Auto) 25.9 (18.3-44.2) % Dickinson % (Auto) 7.9 (2.6-8.5) % Eos % (Auto) 2.3 (0-4.4) % Baso % (Auto) 1.1 (0.2-1.2) % Lymph # (Auto) 1.67 (0.9-3.2) K/mm3 Dickinson # (Auto) 0.5 (0.1-0.6) K/mm3 Eos # (Auto) 0.2 (0-0.3) K/mm3 Baso # (Auto) 0.1 (0.0-0.1) K/mm3 Abs Immat Gran (auto) 0.04 H (0.00-0.031) K/mm3 Absolute Neuts (auto) 4.0 (1.3-6.7) K/mm3 Absolute Nucleated RBC 0.000 (0.0-0.012) K/mm3 Nucleated RBC % 0.0 (0.0-0.2) % PT 12.4 (11.1-14.7) Seconds INR 0.9 APTT 30.7 (22.3-36.8) Seconds Sodium 135 L (137-145) mmol/L Potassium 3.5 (3.4-5.0) mmol/L Chloride 98 (98-107) mmol/L Carbon Dioxide 26 (22-30) mmol/L Anion Gap 11 (4-12) mmol/L BUN 10 (7-17) mg/dL Creatinine 0.85 (0.7-1.0) mg/dL Estim Creat Clear Calc 57 ml/min Estimated GFR > 60 (59 - ) Glucose 120 H (65-110) mg/dL Calcium 9.9 (8.4-10.2) mg/dL Total Bilirubin 0.8 (0.2-1.3) mg/dL AST 44 H (14-36) U/L ALT 37 H (6-35) U/L Alkaline Phosphatase 107 (38-126) U/L Troponin I < 0.012 < 0.012 (0.000-0.034) ng/mL NT-Pro-B Natriuret Pep 65 (19.9-100) pg/mL Total Protein 8.7 H (6.3-8.2) g/dL Albumin 4.7 (3.5-5.1) g/dL Urine Color Yellow (Yellow) Urine Appearance Clear (Clear) Urine pH 7.0 (5.0-9.0) Ur Specific [place] 1.008 (1.001-1.035) Urine Protein Negative (Negative) mg/dL Urine Glucose (UA) Negative (Negative) mg/dL Urine Ketones Negative (Negative) mg/dL Ur Blood (Man) Negative (Negative) Urine Nitrate Negative (Negative) Urine Bilirubin Negative (Negative) Urine Urobilinogen 0.2 (<2.0) mg/dL Leukocyte Esterase Rfl 2+ H (Negative) THOMAS/UL Urine RBC 0-2 (0-2) /hpf Urine WBC 11-20 H (0-3) /hpf Ur Squamous Epith Cells Moderate (Few) /hpf Urine Bacteria Rare /hpf Urine Casts 0-2 <Maude Garcia MD - Last Filed: 08/18/24 15:55> Imaging Data Radiologist's impression: Impressions Chest X-Ray 08/18/24 10:41 IMPRESSION: 1. No acute cardiopulmonary disease. Chest CTA 08/18/24 11:15 IMPRESSION: 1. No pulmonary embolism or other acute cardiopulmonary disease. 2. Small sliding-type hiatal hernia. <Johanna Brooks June RETURNED GOODS INSPECTOR Last Filed: 08/18/24 14:22> Discharge Plan Discharge Clinical Impression: Essential hypertension <Johanna Brooks June, Last Filed: 08/18/24 14:22> Patient Disposition: Home <Johanna Brooks June, Last Filed: 08/18/24 14:22> Condition: Stable <Johanna Brooks June, - Last Filed: 08/18/24 14:22> Instructions: Antibiotic Form <Johanna Brooks June, Last Filed: 08/18/24 14:22> Additional Instructions: Your labs and imaging are reassuring today. Please continue to take your medications as prescribed, Continue to monitor your b/p and keep a log for your PCP Call to follow up with your PCP this week to evaluate the need for a medication adjustment as discussed As always, if you develop any worsening symptoms or have any other concerns return to the ER <Johanna Brooks June, Last Filed: 08/18/24 14:22> Patient Language: Albanian <Johanna Brooks June, Last Filed: 08/18/24 14:22> Prescriptions: No Action atorvastatin 40 mg tablet 40 mg PO DAILY Qty: 30 2RF aspirin 81 mg Tablet,Delayed Release (Dr/Ec) 81 mg PO QAM Qty: 30 2RF hydrochlorothiazide 12.5 mg Capsule 12.5 mg PO QAM Qty: 30 2RF telmisartan 40 mg tablet 60 mg PO QPM amlodipine 5 mg tablet 5 mg PO DAILY 30 Days Qty: 30 0RF <Johanna Brooks June, Last Filed: 08/18/24 14:22> Follow-up/Referrals: PHYSICIAN NOT ON STAFF,NONSTAFF [Non-Staff] - <Johanna Brooks June, Last Filed: 08/18/24 14:22> Time of Disposition: 14:16 <Johanna Brooks June, - Last Filed: 08/18/24 14:22> 14:16 <Maude Garcia MD - Last Filed: 08/18/24 15:55>
--- OUTSIDE RECORDS SUMMARY | 2024-08-18 09:46 | XMS_ITS | Referral Summary ---
Author Organization [facility] Clinical [facility] Address [address] [place] [id number] Care Team Providers Care Museum Specialist Name Role Phone Tunde Espinosa MD Primary Care Provider [phone] Jacque Hunter MD Unavailable [phone] Diego Elliott MD Unavailable [phone] Encounters Date Type Department Care Team Description 06/17/2024 Results Follow-Up [address] [phone] Tunde Espinosa MD CBC with auto differential, Comprehensive metabolic panel, Lipid panel, Additional followed-up results: 5 06/17/2024 2:30 PM CDT Office Visit [address] [phone] Tunde Espinosa MD Primary hypertension [...] appointment Assessment & Plan (02/27/2023 8:29 AM SPINNING MACHINE TENDER): Recent mild FPG elevation. Subsequent normal HBA1c. Counseled on regular exercise and mediterranean diet. Recheck annually. History of thalamic stroke 03/30/2020 Assessment & Plan (04/01/2020 9:08 AM SPINNING MACHINE TENDER): Continue efforts to optimize CV risk. Class 1 obesity with body ma ss index (BMI) of 33.0 to 33.9 in adult 06/01/2016 Overview (02/07/2018): Assessment & Plan (05/06/2024 2:08 PM CDT): Obesity is unchanged. Discussed the patient's BMI. The BMI is above average; BMI management plan is completed. General weight loss/lifestyle modification strategies discussed. Assessment & Plan (02/27/2023 8:30 AM SPINNING MACHINE TENDER): Obesity is unchanged. Discussed the patient's BMI. [...] etc). Assessment & Plan (04/01/2020 9:08 AM SPINNING MACHINE TENDER): Obesity is unchanged. Discussed the patient's BMI. The BMI is above average; BMI management plan is completed. General weight loss/lifestyle modification strategies discussed (elicit support from others; identify saboteurs; non-food rewards, etc). Counseled on dietary options including mediterranean diet and intermittent fasting Assessment & Plan (02/07/2018 2:55 PM SPINNING MACHINE TENDER): Obesity is mild. Discussed the patient's BMI. [...] changes Assessment & Plan (02/07/2018 2:35 PM SPINNING MACHINE TENDER): I spent 15 minutes counseling her on [...] compliance Assessment & Plan (02/27/2023 8:33 AM SPINNING MACHINE TENDER): Hypertension is stable Continue current treatment regimen. [...] appointment. Assessment & Plan (04/01/2020 9:20 AM SPINNING MACHINE TENDER): Hypertension is uncontrolled Continue current treatment regimen. Weight loss. Regular aerobic exercise. Medication changes per orders. Ambulatory blood pressure monitoring. Blood pressure will be reassessed 6 weeks.. Resume Amlodipine Assessment & Plan (02/10/2020 8:27 AM SPINNING MACHINE TENDER): Hypertension is uncontrolled Weight loss. Regular aerobic [...] months. Assessment & Plan (02/07/2018 2:35 PM SPINNING MACHINE TENDER): Hypertension is controlled. Continue current treatment regimen. Weight loss. Regular aerobic exercise. Continue current medications. Blood pressure will be reassessed at the next regular appointment. Resolved Problems Problem Noted Date Diagnosed Date Resolved Date Cerebrovascular accident (CV A) of left thalamus 02/10/2020 03/30/2020 Assessment & Plan (02/10/2020 8:32 AM SPINNING MACHINE TENDER): Recent DX on Brain MRI 01/29/20. Likely on basis of uncontrolled HTN. She has scheduled F/U with neurology. No residual deficit. Abnormal liver function tests 09/15/2014 05/09/2018 Overview (02/07/2018): Assessment & Plan (02/07/2018 2:34 PM SPINNING MACHINE TENDER): Mild when last checked. Benign exam. Check [...] on file Legal Sex Female 2:16 AM SPINNING MACHINE TENDER Gender Identity Female 02/09/2020 6:22 PM SPINNING MACHINE TENDER Sexual Orientation Straight 02/09/2020 6: 22 PM SPINNING MACHINE TENDER Occupation Industry Job Start Date Job End [...] HEPATITIS C ANTIBODY Routine 03/16/2018 10:58 AM SPINNING MACHINE TENDER Abnormal liver function tests Need for hepatitis [...] ORDERABLES Latoya l Result Performing Organization Address [facility] Co de Phone Number [facility] [address] [place] [address] * Hepatitis B core antibody, total (06/16/2024 9:06 AM CDT) Hep B core IgG/IgM NON-REACTI VE NON-REACTI VE [facility] Comment: For additional information, please refer to http://education.[facility]/faq/FPS391 (This link is being provided for informational/ educational purposes only.) 06/16/2024 9:06 AM CDT 06/16/2024 9:07 AM CDT Narrative [facility] - 06/17/2024 4:08 AM CDT FASTING:YES FASTING: YES Tunde Espinosa MD LAB MICROBIOLOGY - GENERA L ORDERABLES Final Result Performing Organization Address [facility] de Phone Number [facility] [address] [place] [address] * (ABNORMAL) Hepatitis B surface antibody (immune status) (06/16/2024 9:06 AM CDT) Pathologist [facility] HBsAb (immune status) REACTIVE(A ) NON-REACTI VE [facility] 06/16/2024 9:06 AM CDT 06/16/2024 9:07 AM CDT Narrative [facility] - 06/17/2024 4:08 AM CDT FASTING:YES FASTING: YES Tunde Espinosa MD LAB MICROBIOLOGY - GENERA L ORDERABLES Final Result Performing Organization Address [facility] Co de Phone Number [facility] [address] [place] [address] * Hepatitis B Surface Antigen (06/16/2024 9:06 AM CDT) [facility] HepBsAg NON-REACTI VE NON-REACTI VE [facility] Comment: For additional information, please refer to http://education.[facility]/faq/FJT090 (This link is being provided for informational/ educational purposes only.) 06/16/2024 9:06 AM CDT 06/16/2024 9:07 AM CDT Narrative [facility] - 06/17/2024 4:08 AM CDT FASTING:YES FASTING: YES Tunde Espinosa MD LAB MICROBIOLOGY - GENERA L ORDERABLES Final Result Performing Organization Address [facility] Co de Phone Number [facility] [address] [place] [address] * TSH (06/16/2024 9:06 AM CDT) [facility] TSH 0.49 0.40 - 4.50 mIU/L [facility] Blood 06/16/2024 9:06 AM CDT 06/16/2024 9:07 AM CDT Narrative [facility] - 06/17/2024 4:08 AM CDT FASTING:YES FASTING: YES Tunde Espinosa MD LAB BLOOD ORDERABLES Latoya l Result Performing Organization Address [facility]/ZIP Co de Phone Number [facility] [address] [place] [address] * (ABNORMAL) Hemoglobin A1c (06/16/2024 9:06 AM CDT) [facility] Hgb A1C 5.9(H) <5.7 % of [...] MD LAB BLOOD ORDERABLES Latoya l Result [facility] [address] [place] [address] * Lipid panel (06/16/2024 9:06 AM CDT) [facility] Cholesterol 181 <200 mg/dL [facility] [...] LDL-C. Bogdan SS et al. LEANDRO. 2013;310(19): 4379-5013 (http://education.[employer]/faq/YZY780) Chol/HDL ratio 3.1 <5.0 (calc) [facility] [...] BLOOD ORDERABLES Latoya wagoner Result [facility] [address] [address] * Comprehensive metabolic panel (06/16/2024 9:06 AM CDT) [facility] Glucose 99 65 - 99 mg/dL [facility] [...] ORDERABLES Latoya wagoner Result [facility] [address] [address] * Screening Mammogram Bilateral W Jona (05/06/2024 1:45 PM CDT) Anatomical Region Laterality Modality Breast Bilateral Mammography Narrative 05/07/2024 3:59 PM CDT Mammogram Technique: Bilateral Digital Breast Tomosynthesis, Bilateral C-view 2D Screening mammogram. Views obtained: bilateral craniocaudal and bilateral mediolateral oblique. Computer Aided Detection was performed. Mammogram Findings: The present examination has been compared to prior imaging studies performed at [facility] on 03/05/2018, and at [facility] on 02/07/2018 and 05/19/2020. The breasts [...] compared to prior imaging studies performed at [facility] on 03/05/2018, and at [facility] on 02/07/2018 and 05/19/2020. The breasts [...] * Hepatitis C antibody (03/16/2018 10:58 AM SPINNING MACHINE TENDER) Hep C Ab NON-REACTI VE NON-REACTI VE [facility] [place] SIGNAL TO CUT-OFF 0.03 <1.00 [facility] [place] Blood specimen (specimen) 03/16/2018 10:58 AM SPINNING MACHINE TENDER 03/16/2018 10:59 AM SPINNING MACHINE TENDER Narrative [facility] - 03/18/2018 10:16 AM SPINNING MACHINE TENDER FASTING:YES FASTING: YES Resulting Agency Comment Performing Organization Information: Site ID: [facility] Name: [facility] Address: [address] [place] [address] [facility] [place] [id number] Director: Davie Gregorio D.O., AMY Tunde Espinosa MD LAB MICROBIOLOGY - GENERA L ORDERABLES Final Result [facility] [place] from Last 3 Months or Most Recently Relevant to Health Maintenance [place] [address] [facility] CIGNA CIGNA CIGNA Care Teams Museum Specialist Relationship Specialty Start Date End Date Tunde Espinosa MD [facility] [facility] [address] [place] [address] PCP - General 06/01/16 Jacque Hunter MD [address] [facility] [phone] [place] [address] Consulting Physician Obstetrics and Gynecology 02/07/18 Diego Elliott MD [address] [address] Referring Physician Neurology 02/10/20
--- OUTSIDE RECORDS SUMMARY | 2024-08-18 09:47 | XMS_ITS | Encounter Summary ---
Author Organization [facility] Clinical [facility] Address [facility] [facility] [address] [place] [address] Phone Care Team Providers Care Information Systems Analyst Name Role Phone Tunde Espinosa MD Primary Care Provider [phone] Jacque Hunter MD Unavailable [phone] Diego Elliott MD Unavailable [phone] Encounter Details Date Type Department Care Team (Late st Contact Info) Description 06/17/2024 Results Follow-Up [address] [place] [address] [place] [address] Tunde Espinosa MD [address] [place] [id number] CBC with auto differential, Comprehensive metabolic [...] on file Legal Sex Female 2:16 AM COMMERCIAL BAKING TEACHER Gender Identity Female 02/09/2020 6:22 PM COMMERCIAL BAKING TEACHER Sexual Orientation Straight 02/09/2020 6: 22 PM COMMERCIAL BAKING TEACHER 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; 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 on bre e documented as of this encounter Plan of Treatment Not on file documented as of this encounter Visit Diagnoses Not on filedocumented in this encounter Care Teams Information Systems Analyst Relationship Specialty Start Date End Date Tunde Espinosa MD [address] [place] [address] [address] [address] PCP - General 06/01/16 Jacque Hunter MD [address] [facility] [phone] [place] [address] Consulting Physician Obstetrics and Gynecology 02/07/18 Diego Elliott MD [address] [address] Referring Physician Neurology 02/10/20 documented as of this encounter
--- OUTSIDE RECORDS SUMMARY | 2024-08-18 09:47 | XMS_ITS | Clinical Summary ---
Author Organization [facility] Clinical [facility] Address [address] [place] [address] Care Team Providers Care Maternity Nurse Name Role Phone Tunde Espinosa MD Primary Care Provider [phone] Jacque Hunter MD Unavailable [phone] Diego Elliott MD Unavailable [phone] Allergies Active Allergy Reactions Criticality Noted Date [...] appointment Assessment & Plan (02/27/2023 8:29 AM FULL SERVICE SUPERVISOR): Recent mild FPG elevation. Subsequent normal HBA1c. Counseled on regular exercise and mediterranean diet. Recheck annually. History of thalamic stroke 03/30/2020 Assessment & Plan (04/01/2020 9:08 AM FULL SERVICE SUPERVISOR): Continue efforts to optimize CV risk. Class 1 obesity with body ma ss index (BMI) of 33.0 to 33.9 in adult 06/01/2016 Overview (02/07/2018): Assessment & Plan (05/06/2024 2:08 PM CDT): Obesity is unchanged. Discussed the patient's BMI. The BMI is above average; BMI management plan is completed. General weight loss/lifestyle modification strategies discussed. Assessment & Plan (02/27/2023 8:30 AM FULL SERVICE SUPERVISOR): Obesity is unchanged. Discussed the patient's BMI. [...] etc). Assessment & Plan (04/01/2020 9:08 AM FULL SERVICE SUPERVISOR): Obesity is unchanged. Discussed the patient's BMI. The BMI is above average; BMI management plan is completed. General weight loss/lifestyle modification strategies discussed (elicit support from others; identify saboteurs; non-food rewards, etc). Counseled on dietary options including mediterranean diet and intermittent fasting Assessment & Plan (02/07/2018 2:55 PM FULL SERVICE SUPERVISOR): Obesity is mild. Discussed the patient's BMI. [...] changes Assessment & Plan (02/07/2018 2:35 PM FULL SERVICE SUPERVISOR): I spent 15 minutes counseling her on [...] compliance Assessment & Plan (02/27/2023 8:33 AM FULL SERVICE SUPERVISOR): Hypertension is stable Continue current treatment regimen. [...] appointment. Assessment & Plan (04/01/2020 9:20 AM FULL SERVICE SUPERVISOR): Hypertension is uncontrolled Continue current treatment regimen. Weight loss. Regular aerobic exercise. Medication changes per orders. Ambulatory blood pressure monitoring. Blood pressure will be reassessed 6 weeks.. Resume Amlodipine Assessment & Plan (02/10/2020 8:27 AM FULL SERVICE SUPERVISOR): Hypertension is uncontrolled Weight loss. Regular aerobic [...] months. Assessment & Plan (02/07/2018 2:35 PM FULL SERVICE SUPERVISOR): Hypertension is controlled. Continue current treatment regimen. Weight loss. Regular aerobic exercise. Continue current medications. Blood pressure will be reassessed at the next regular appointment. Resolved Problems Problem Noted Date Diagnosed Date Resolved Date Cerebrovascular accident (CV A) of left thalamus 02/10/2020 03/30/2020 Assessment & Plan (02/10/2020 8:32 AM FULL SERVICE SUPERVISOR): Recent DX on Brain MRI 01/29/20. Likely on basis of uncontrolled HTN. She has scheduled F/U with neurology. No residual deficit. Abnormal liver function tests 09/15/2014 05/09/2018 Overview (02/07/2018): Assessment & Plan (02/07/2018 2:34 PM FULL SERVICE SUPERVISOR): Mild when last checked. Benign exam. Check labs. Encounters Date Type Department Care Team Description 06/17/2024 2:30 PM CDT Office Visit [place] [address] [place] [id number] Tunde Espinosa MD Primary hypertension (Primary Dx); IFG (impaired fasting glucose) 06/17/2024 Results Follow-Up [place] [id number] [phone] Tunde Espinosa MD CBC with auto differential, Comprehensive metabolic panel, Lipid panel, Additional followed-up results: 5 from Last 3 Months Immunizations Immunization Administration Dates Next Due Influenza, Quadrivalent, Spl it, Preservative Free, Intramuscular 12/23/2021,11/07/2019,02/05/2017 Influenza, Trivalent, Preser vative Free, Intramuscular 11/30/2023,12/06/2013,12/06/2012,12/06 Moderna SARS-CoV-2 Monovalen t Vaccination (12+ YRS) 05/05/2020 Tdap 04/07/2013 Surgical History Surgery Date Site/Laterality Comments SD DELIVERY ONLY Section - (Added by TW Conv) SD TOTAL ABDOMINAL HYSTERECT W/WO RMVL TUBE OVARY [...] on file Legal Sex Female 2:16 AM FULL SERVICE SUPERVISOR Gender Identity Female 02/09/2020 6:22 PM FULL SERVICE SUPERVISOR Sexual Orientation Straight 02/09/2020 6: 22 PM FULL SERVICE SUPERVISOR Occupation Industry Job Start Date Job End [...] HEPATITIS C ANTIBODY Routine 03/16/2018 10:58 AM FULL SERVICE SUPERVISOR Abnormal liver function tests Need for hepatitis [...] BLOOD ORDERABLES Latoya l Result [facility] [address] [place] [address] * Hepatitis B core antibody, total (06/16/2024 9:06 AM CDT) Hep B core IgG/IgM NON-REACTI VE NON-REACTI VE [facility] Comment: For additional information, please refer to http://Giftah.Twistle/faq/VRQ095 (This link is being provided for informational/ educational purposes only.) 06/16/2024 9:06 AM CDT 06/16/2024 9:07 AM CDT Narrative [facility] - 06/17/2024 4:08 AM CDT FASTING:YES FASTING: YES Tunde Espinosa MD LAB MICROBIOLOGY - [place] L ORDERABLES Final Result Performing Organization Address [facility] de Phone Number [facility] [address] [place] [address] * (ABNORMAL) Hepatitis B surface antibody (immune status) (06/16/2024 9:06 AM CDT) HBsAb (immune status) REACTIVE(A ) NON-REACTI VE [facility] 06/16/2024 9:06 AM CDT 06/16/2024 9:07 AM CDT Narrative [facility] - 06/17/2024 4:08 AM CDT FASTING:YES FASTING: YES Tunde Espinosa MD LAB MICROBIOLOGY - GENERA L ORDERABLES Final Result Performing Organization Address [facility] de Phone Number [facility] [address] [place] [address] * Hepatitis B Surface Antigen (06/16/2024 9:06 AM CDT) HepBsAg NON-REACTI VE NON-REACTI VE [facility] Comment: For additional information, please refer to http://[employer]/faq/CGQ968 (This link is being provided for informational/ educational purposes only.) 06/16/2024 9:06 AM CDT 06/16/2024 9:07 AM CDT Narrative [facility] - 06/17/2024 4:08 AM CDT FASTING:YES FASTING: YES Tunde Espinosa MD LAB MICROBIOLOGY - GENERA L ORDERABLES Final Result Performing Organization Address [facility] de Phone Number [facility] [address] [place] [address] * TSH (06/16/2024 9:06 AM CDT) Pathologist [facility] TSH 0.49 0.40 - 4.50 mIU/L [facility] Blood 06/16/2024 9:06 AM CDT 06/16/2024 9:07 AM CDT Narrative [facility] - 06/17/2024 4:08 AM CDT FASTING:YES FASTING: YES Tunde Espinosa MD LAB BLOOD ORDERABLES Latoya l Result Performing Organization Address [facility] de Phone Number [facility] [address] [place] [address] * (ABNORMAL) Hemoglobin A1c (06/16/2024 9:06 AM CDT) Pathologist [facility] Hgb A1C 5.9(H) <5.7 % of total [...] MD LAB BLOOD ORDERABLES Latoya l Result [facility] [address] [place] [address] * Lipid panel (06/16/2024 9:06 AM CDT) [...] LDL-C. Bogdan SS et al. LEANDRO. 2013;310(19): 2680-9091 (http://education.TrialPay/faq/IEE762) Chol/HDL ratio 3.1 <5.0 (calc) [facility] [...] LAB BLOOD ORDERABLES Latoya l Result [facility] [address] [place] [address] * Comprehensive metabolic panel (06/16/2024 9:06 AM [...] BLOOD ORDERABLES Latoya l Result [facility] [address] [place] [address] * Screening Mammogram Bilateral W Jona (05/06/2024 1:45 PM CDT) Anatomical Region Laterality Modality Breast Bilateral Mammography Narrative 05/07/2024 3:59 PM CDT Mammogram Technique: Bilateral Digital Breast Tomosynthesis, Bilateral C-view 2D Screening mammogram. Views obtained: bilateral craniocaudal and bilateral mediolateral oblique. Computer Aided Detection was performed. Mammogram Findings: The present examination has been compared to prior imaging studies performed at [facility] on 03/05/2018, and at [facility] on 02/07/2018 and 05/19/2020. The breasts [...] compared to prior imaging studies performed at [facility] on 03/05/2018, and at [facility] on 02/07/2018 and 05/19/2020. The breasts [...] * Hepatitis C antibody (03/16/2018 10:58 AM FULL SERVICE SUPERVISOR) Hep C Ab NON-REACTI VE NON-REACTI VE [facility] [place] SIGNAL TO CUT-OFF 0.03 <1.00 [facility] [place] Blood specimen (specimen) 03/16/2018 10:58 AM FULL SERVICE SUPERVISOR 03/16/2018 10:59 AM FULL SERVICE SUPERVISOR Narrative [facility] - 03/18/2018 10:16 AM FULL SERVICE SUPERVISOR FASTING:YES FASTING: YES Resulting Agency Comment Performing Organization Information: Site ID: [id number] Name: [facility] Address: [address] [place] [address] [place] [address] Director: Davie Gregorio D.O., MPH us Tunde Espinosa MD LAB MICROBIOLOGY - GENERA L ORDERABLES Final Result [facility] [place] from Last 3 Months or Most Recently Relevant to Health Maintenance Insurance [employer] [place] [id number] Care Teams Maternity Nurse Relationship Specialty Start Date End Date Tunde Espinosa MD [address] [place] [address] [address] [address] PCP - General 06/01/16 Jacque Hunter MD [facility] [place] [facility] [phone] [place] [address] Consulting Physician Obstetrics and Gynecology 02/07/18 Diego Elliott MD [address] [address] Referring Physician Neurology 02/10/20
[2024-08-18 09:50] LABS: Hematocrit 45.5 % (37.0-47.0); Hemoglobin 15.1 g/dL (12.0-15.0); Immature Granulocyte Percent A 0.6 % (0-0.5); Lymphocytes Absolute Auto 1.67 K/mm3 (0.9-3.2); Mean Corpuscular HGB Conc 33.2 g/dl (32-36); Mean Corpuscular Hemoglobin 29.0 pg (26-34); Mean Corpuscular Volume 87.3 fl (80-100); Nucleated Red Blood Cells Absolute Auto 0.000 K/mm3 (0.0-0.012); Nucleated Red Blood Cells Perc 0.0 % (0.0-0.2); Platelet Count Result 246 k/mm3 (150-375); Red Blood Count 5.21 M/mm3 (4.2-5.4); White Blood Count 6.4 K/mm3 (4.5-10.0)
[2024-08-18 10:04] LABS: INR 0.9; Prothrombin Time 12.4 Seconds (11.1-14.7)
[2024-08-18 10:05] LABS: Partial Thromboplastin Time 30.7 Seconds (22.3-36.8)
[2024-08-18 10:21] LABS: Alanine Aminotransferase 37 U/L (6-35); Albumin Level 4.7 g/dL (3.5-5.1); Alkaline Phosphatase 107 U/L (38-126); Anion Gap 11 mmol/L (4-12); Aspartate Amino Transferase 44 U/L (14-36); Bilirubin,Total 0.8 mg/dL (0.2-1.3); Blood Urea Nitrogen 10 mg/dL (7-17); Calcium 9.9 mg/dL (8.4-10.2); Carbon Dioxide 26 mmol/L (22-30); Chloride 98 mmol/L (98-107); Estimated CRCL calculation 57 ml/min; Estimated Glomerular Filt Rate > 60; Glucose 120 mg/dL (65-110); Potassium 3.5 mmol/L (3.4-5.0); Sodium 135 mmol/L (137-145); Total Protein 8.7 g/dL (6.3-8.2)
[2024-08-18 10:23] LABS: NT Pro B Type Natriuretic Pept 65 pg/mL (19.9-100); Troponin I < 0.012 ng/mL (0.000-0.034)
[2024-08-18 11:07] LABS: Add Urine Microscopic? YES; Appearance Urine Clear (Clear); Glucose Urine UA Negative (Negative); Leukocyte Esterase Ur 2+ LEU/UL (Negative); Nitrate Urine Negative (Negative); Non Pathogenic Casts 0-2; Specific Grav Ur 1.008 (1.001-1.035)
--- NOTE | 2024-08-18 12:59 | ECG_ITS ---
Test Date: 2024-08-18 13:03:57 Measurements Intervals [place] Rate: 81 P: 48 IL: 196 QRS: 5 QRSD: 84 T: 13 QT: 359 QTc: 418 Interpretive Statements SINUS RHYTHM POSSIBLE LEFT ATRIAL ENLARGEMENT [-0.1mV P-WAVE IN V1/V2] BORDERLINE ECG Compared to ECG 08/18/2024 09:25:38 HEART RATE IS REDUCED Electronically Signed On 08-19-2024 09:57:23 CDT by Cade Delacruz M.D.
[2024-08-18 13:26] LABS: Troponin I < 0.012 ng/mL (0.000-0.034)
== END 2024-08-18 14:30 | disposition home or self-care (01) ==
PROVIDERS: Emergency Provider Nurse Practitioner Family
DX: I10 Essential (primary) hypertension (principal); E78.5 Hyperlipidemia, unspecified
CPT/HCPCS: 36415; 71045; 71275; 80053; 81001; 83880; 84484; 85025; 85610; 85730; 93005; 99284; Q9967

== ENCOUNTER 2024-09-15 16:18 | Observation (INO) | payer OTHER, SELFPAY ==
[2024-09-15] VITALS (7 sets, daily range): BP systolic 128–192; BP diastolic 75–122; PULSE 95–123; RESP 16–21; TEMP 35.8–36.8; O2SAT 98–100; BMI 34.1
--- NOTE | ~2024-09-15 | XR_ITS ---
Exam: Chest 2 views CLINICAL HISTORY: Arrhythmia. COMPARISON: Chest 1 view 08/18/2024. TECHNIQUE: Frontal and lateral images of the chest were obtained. FINDINGS: Equipment projects over the thorax. Correlate clinically. Heart is not enlarged. No pneumothorax. No pleural effusion. No free air under the diaphragm. No focal pulmonary consolidation. IMPRESSION: 1. No acute pulmonary process identified. Reviewed, dictated and finalized at location A.
--- OUTSIDE RECORDS SUMMARY | 2024-09-15 16:21 | XMS_ITS | Clinical Summary ---
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 90 tablet 08/02/19 25 Active telmisartan (MICARDIS) 80 mg tabletIndications:Primar y hypertension TAKE 1 TABLET BY MOUTH EVERY DAY 90 tablet 08/02/19 25 Active Active Problems Problem Noted Date Diagnosed Date Bradycardia 08/26/2024 Assessment & Plan (08/26/2024 2:49 PM CDT): Episodic. Spelss she has been having may possibly be due to this. Request recent ER records. Schedule MCT monitoring for 14 days. IFG (impaired fasting glucose) 01/05/2023 Assessment & Plan (06/17/2024 2:30 PM CDT): Impaired Fasting Glucose is newly identified Counseled on regular aerobic exercise, including walkig, jogging, targeting 10K- 20K step equivalent daily., Counseled on low carbohydrate diet, and Counseled on intermittent fasting diet. Follow up at the next regular appointment Assessment & Plan (02/27/2023 8:29 AM MANAGER TELEMETRY): Recent mild FPG elevation. Subsequent normal HBA1c. Counseled on regular exercise and mediterranean diet. Recheck annually. History of thalamic stroke 03/30/2020 Assessment & Plan (04/01/2020 9:08 AM MANAGER TELEMETRY): Continue efforts to optimize CV risk. Class 1 obesity with body ma ss index (BMI) of 33.0 to 33.9 in adult 06/01/2016 Overview (02/07/2018): Assessment & Plan (05/06/2024 2:08 PM CDT): Obesity is unchanged. Discussed the patient's BMI. The BMI is above average; BMI management plan is completed. General weight loss/lifestyle modification strategies discussed. Assessment & Plan (02/27/2023 8:30 AM MANAGER TELEMETRY): Obesity is unchanged. Discussed the patient's BMI. [...] etc). Assessment & Plan (04/01/2020 9:08 AM MANAGER TELEMETRY): Obesity is unchanged. Discussed the patient's BMI. The BMI is above average; BMI management plan is completed. General weight loss/lifestyle modification strategies discussed (elicit support from others; identify saboteurs; non-food rewards, etc). Counseled on dietary options including mediterranean diet and intermittent fasting Assessment & Plan (02/07/2018 2:55 PM MANAGER TELEMETRY): Obesity is mild. Discussed the patient's BMI. [...] changes Assessment & Plan (02/07/2018 2:35 PM MANAGER TELEMETRY): I spent 15 minutes counseling her on [...] s approach. Hypertension 02/14/2011 Assessment & Plan (08/26/2024 2:36 PM CDT): Hypertension is stable Continue current treatment regimen. Continue current medications. Blood pressure will be reassessed at the next regular appointment. Assessment & Plan (06/17/2024 2:41 PM CDT): [...] compliance Assessment & Plan (02/27/2023 8:33 AM MANAGER TELEMETRY): Hypertension is stable Continue current treatment regimen. [...] appointment. Assessment & Plan (04/01/2020 9:20 AM MANAGER TELEMETRY): Hypertension is uncontrolled Continue current treatment regimen. Weight loss. Regular aerobic exercise. Medication changes per orders. Ambulatory blood pressure monitoring. Blood pressure will be reassessed 6 weeks.. Resume Amlodipine Assessment & Plan (02/10/2020 8:27 AM MANAGER TELEMETRY): Hypertension is uncontrolled Weight loss. Regular aerobic [...] months. Assessment & Plan (02/07/2018 2:35 PM MANAGER TELEMETRY): Hypertension is controlled. Continue current treatment regimen. Weight loss. Regular aerobic exercise. Continue current medications. Blood pressure will be reassessed at the next regular appointment. Resolved Problems Problem Noted Date Diagnosed Date Resolved Date Cerebrovascular accident (CV A) of left thalamus 02/10/2020 03/30/2020 Assessment & Plan (02/10/2020 8:32 AM MANAGER TELEMETRY): Recent DX on Brain MRI 01/29/20. Likely on basis of uncontrolled HTN. She has scheduled F/U with neurology. No residual deficit. Abnormal liver function tests 09/15/2014 05/09/2018 Overview (02/07/2018): Assessment & Plan (02/07/2018 2:34 PM MANAGER TELEMETRY): Mild when last checked. Benign exam. Check labs. Encounters Date Type Department Care Team Description 09/02/2024 Results Follow-Up [address] [address] Tunde Espinosa MD CBC with auto differential, Comprehensive metabolic panel, TSH 08/27/2024 8:45 AM CDT Ancillary Procedure [facility] [place] [address] [facility] [address] [place] [address] Bradycardia 08/26/2024 2:30 PM CDT Office Visit [address] [address] Tunde Espinosa MD Primary hypertension (Primary Dx); Bradycardia 08/26/2024 Orders Only [address] [address] Tunde Espinosa MD 08/26/[address] [address] CarmelaMarcie villarreal 06/17/2024 2:30 PM CDT Office Visit [address] [address] Tunde Espinosa MD Primary hypertension (Primary Dx); IFG (impaired fasting glucose) 06/17/2024 Results Follow-Up [address] [address] Tunde Espinosa MD CBC with auto differential, Comprehensive metabolic panel, Lipid panel, Additional followed-up results: 5 from Last 3 Months Immunizations Immunization Administration Dates Next Due Influenza, Quadrivalent, Spl it, Preservative Free, Intramuscular 12/23/2021,11/07/2019,02/05/2017 Influenza, Trivalent, Preser vative Free, Intramuscular 11/30/2023,12/06/2013,12/06/2012,12/06 Moderna SARS-CoV-2 Monovalen t Vaccination (12+ YRS) 05/05/2020 Tdap 04/07/2013 Surgical History Surgery Date Site/Laterality Comments [place] DELIVERY ONLY Section - (Added by TW Conv) [place] TOTAL ABDOMINAL HYSTERECT W/WO RMVL TUBE OVARY [...] on file Legal Sex Female 2:16 AM MANAGER TELEMETRY Gender Identity Female 02/09/2020 6:22 PM MANAGER TELEMETRY Sexual Orientation Straight 02/09/2020 6: 22 PM MANAGER TELEMETRY 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; 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 on bre e Obstetrics History Last Filed Vital Signs Vital Sign Reading Time Taken Comments Blood Pressure 138/82 08/26/2024 2:23 PM CDT Pulse 102 08/26/2024 2:23 PM CDT Temperature 37.2 C (99 F) 08/26/2024 2:23 PM CDT Respiratory Rate - - Oxygen Saturation 98% 08/26/2024 2:23 PM CDT Inhaled Oxygen Concentration - - Weight 81.6 kg (180 lb) 08/26/2024 2:23 PM CDT Height 156.2 cm (5' 1.5) 08/26/2024 2:23 PM CDT Body Mass Index 33.46 08/26/2024 2:23 PM CDT Plan of Treatment Health Maintenance Due Date Last Done Comments Colon Cancer Screening-Colonoscopy 1960 Zoster Vaccine (1 of 2) 10/13/2011 DTaP/Tdap/Td Vaccine (2 - Td or Tdap) 04/08/2023 04/07/2013 Covid-19 Vaccine ( season) 2023 12/23/2021, 01/14/2021, 06/01/2020, Additional history exists Influenza Vaccine (#1) 2024 , 12/23/2021, 11/07/2019, Additional history exists Breast Cancer Screening-Mammogram 05/06/2025 05/06/2024, 05/19/2020, 02/07/2018, Additional history exists Depression Screening 05/06/2025 05/06/2024, 10/17/2022, 04/21/2021, Additional history exists Regular Well Visit/Exam 18-64 05/06/2025 05/06/2024, 10/17/2022, 04/21/2021, Additional history exists Hepatitis C Screening Completed 03/16/2018 Hepatitis B Screening Completed 06/16/2024 Pneumococcal vaccine <65 Aged Out No longer eligible based on patient's age to complete this topic Procedures Procedure Name Priority Date/Time Associated Diagnosis Comments TSH Routine 09/01/2024 9:52 AM CDT Primary hypertension Bradycardia COMPREHENSIVE METABOLIC PANEL Routine 09/01/2024 9:52 AM CDT Primary hypertension Bradycardia CBC WITH AUTO DIFFERENTIAL Routine 09/01/2024 9:52 AM CDT Primary hypertension Bradycardia [place] ECG ROUTINE ECG W/LEAST 12 LDS W/I&R Routine 08/26/2024 2:45 PM CDT Primary hypertension Bradycardia HEMOGLOBIN A1C Routine 06/16/2024 9:06 AM CDT [...] HEPATITIS C ANTIBODY Routine 03/16/2018 10:58 AM MANAGER TELEMETRY Abnormal liver function tests Need for hepatitis C screening test from Last 3 Months or Most Recently Relevant to Health Maintenance Results * (ABNORMAL) CBC with auto differential (09/01/2024 9:52 AM CDT) WBC 6.2 3.8 - 10.8 Thousand/u L [facility] RBC, POC 4.86 3.80 - 5.10 Million/uL [facility] Hgb 14.5 11.7 - 15.5 g/dL [facility] Hct 45.6(H) 35.0 - 45.0 % [facility] MCV 93.8 80.0 - 100.0 fL [facility] MCH 29.8 27.0 - 33.0 pg [facility] MCHC 31.8(L) 32.0 - 36.0 g/dL [facility] Comment: For adults, a slight decrease in the calculated MCHC value (in the range of 30 to 32 g/dL) is most likely not clinically significant; however, it should be interpreted with caution in correlation with other red cell parameters and the patient's clinical condition. Rdw 13.5 11.0 - 15.0 % [facility] Platelets 241 140 - 400 Thousand/u L [facility] MPV 11.3 7.5 - 12.5 fL [facility] Neutrophils, abs 3,701 1,500 - 7,800 cells/uL [facility] Lymphocytes, abs 1,649 850 - 3,900 cells/uL [facility] Monocyte abs 440 200 - 950 cells/uL [facility] Eosinophils, abs 310 15 - 500 cells/uL [facility] Basophils, abs 99 0 - 200 cells/uL [facility] Neutrophils 59.7 % [facility] Lymphocyte pct 26.6 % [facility] Monocytes 7.1 % [facility] Eosinophils 5.0 % [facility] Basophils 1.6 % [facility] Blood 09/01/2024 9:52 AM CDT 09/01/2024 9:52 AM CDT us Tunde Espinosa MD LAB BLOOD ORDERABLES Latoya l Result [facility] [address] [address] * TSH (09/01/2024 9:52 AM CDT) TSH 0.54 0.40 - 4.50 mIU/L [facility] Blood 09/01/2024 9:52 AM CDT 09/01/2024 9:52 AM CDT us Tunde Espinosa MD LAB BLOOD ORDERABLES Latoya l Result [facility] [address] [address] * (ABNORMAL) Comprehensive metabolic panel (09/01/2024 9:52 AM CDT) Glucose 111(H) 65 - 99 mg/dL [facility] Comment: Fasting reference interval For someone without known diabetes, a glucose value between 100 and 125 mg/dL is consistent with prediabetes and should be confirmed with a follow-up test. BUN 11 7 - 25 mg/dL [facility] Creatinine 0.85 0.50 - 1.05 mg/dL [facility] eGFR 77 > OR = 60 mL/min/1.7 3m2 [facility] BUN/creat ratio SEE NOTE: 6 - 22 (calc) [facility] Comment: Not Reported: BUN and Creatinine are within reference range. Sodium 137 135 - 146 mmol/L [facility] Potassium, pl 4.0 3.5 - 5.3 mmol/L [facility] Chloride 98 98 - 110 mmol/L [facility] CO2 31 20 - 32 mmol/L [facility] Calcium 9.9 8.6 - 10.4 mg/dL [facility] Protein, sr 7.4 6.1 - 8.1 g/dL [facility] Albumin 4.4 3.6 - 5.1 g/dL [facility] GLOBULIN 3.0 1.9 - 3.7 g/dL (calc) [facility] Alb/glob ratio 1.5 1.0 - 2.5 (calc) [facility] Bilirubin, total 0.7 0.2 - 1.2 mg/dL [facility] Alk phos 92 37 - 153 U/L [facility] AST 25 10 - 35 U/L [facility] ALT (SGPT) 25 6 - 29 U/L [facility] Blood 09/01/2024 9:52 AM CDT 09/01/2024 9:52 AM CDT us Tunde Espinosa MD LAB BLOOD ORDERABLES Latoya l Result [facility] [address] [address] * [place] ECG ROUTINE ECG W/LEAST 12 LDS W/I&R (08/26/2024 2:45 PM CDT) Narrative Mireles Yue - 08/26/2024 2:45 PM CDT Tunde Espinosa MD 08/26/2024 2:45 PM EKG 12 lead office performed Date/Time: 08/26/2024 2:45 PM Performed by: Tunde Espinosa MD Authorized by: Tunde Espinosa MD Procedure Type: Global No previous ECG available Rhythm: sinus rhythm Rate: normal BPM: 80 QRS axis: Normal Conduction: Normal ST Segment: Normal T Wave: Normal Other Findings: No other findings Clinical impression: normal ECG Procedure Note Tunde Espinosa MD - 08/26/2024 2:30 PM CDT EKG 12 lead office performed Date/Time: 08/26/2024 2:45 PM Performed by: Tunde Espinosa MD Authorized by: Tunde Espinosa MD Procedure Type: Global No previous ECG available Rhythm: sinus rhythm Rate: normal BPM: 80 QRS axis: Normal Conduction: Normal ST Segment: Normal T Wave: Normal Other Findings: No other findings Clinical impression: normal ECG us Tunde Espinosa MD ECG ORDERABLES Final Res ult * CBC with auto differential (06/16/2024 9:06 [...] 9:06 AM CDT 06/16/2024 9:[address] [facility] - 06/17/2024 4:08 AM CDT FASTING:YES FASTING: YES us Tunde Espinosa MD LAB BLOOD ORDERABLES Latoya wagoner Result [facility] [address] [facility] [place] [address] * Hepatitis B core antibody, total (06/16/2024 9:06 AM CDT) Hep B core IgG/IgM NON-REACTI VE NON-REACTI VE [facility] Comment: For additional information, please refer to http://Cardiocore.Vinny/faq/WFS518 (This link is being provided for informational/ educational purposes only.) 06/16/2024 9:06 AM CDT 06/16/2024 9:07 AM CDT Narrative [facility] - 06/17/2024 4:08 AM CDT FASTING:YES FASTING: YES Tunde Espinosa MD LAB MICROBIOLOGY - [facility] L ORDERABLES Final Result Performing Organization Address [facility] Co de Phone Number [facility] [address] [place] [address] * (ABNORMAL) Hepatitis B surface antibody (immune status) (06/16/2024 9:06 AM CDT) HBsAb (immune status) REACTIVE(A ) NON-REACTI VE [facility] 06/16/2024 9:06 AM CDT 06/16/2024 9:07 AM CDT Narrative [facility] - 06/17/2024 4:08 AM CDT FASTING:YES FASTING: YES Tunde Espinosa MD LAB MICROBIOLOGY - [facility] L ORDERABLES Final Result Performing Organization Address [facility] Co de Phone Number [facility] [address] [place] [address] * Hepatitis B Surface Antigen (06/16/2024 9:06 AM CDT) HepBsAg NON-REACTI VE NON-REACTI VE [facility] Comment: For additional information, please refer to http://Cardiocore.Vinny/faq/XSW572 (This link is being provided for informational/ educational purposes only.) 06/16/2024 9:06 AM CDT 06/16/2024 9:07 AM CDT Narrative [facility] - 06/17/2024 4:08 AM CDT FASTING:YES FASTING: YES Result [facility] Tunde Espinosa MD LAB MICROBIOLOGY - GENERA L ORDERABLES Final Result Performing Organization Address [facility] Co de Phone Number [facility] [address] [place] [address] * TSH (06/16/2024 9:06 AM CDT) TSH 0.49 0.40 - 4.50 mIU/L [facility] Blood 06/16/2024 9:06 AM CDT 06/16/2024 9:07 AM CDT Narrative [facility] - 06/17/2024 4:08 AM CDT FASTING:YES FASTING: YES Tunde Espinosa MD LAB BLOOD ORDERABLES Latoya l Result Performing Organization Address [facility] de Phone Number [facility] [address] [place] [address] * (ABNORMAL) Hemoglobin A1c (06/16/2024 9:06 AM CDT) Hgb A1C 5.9(H) <5.7 % of total [...] ORDERABLES Latoya l Result Performing Organization Address [facility]/ZIP Co de Phone Number [facility] [address] [place] [address] * Lipid panel (06/16/2024 9:06 AM CDT) [...] equation in the estimation of LDL-C. Bogdan LEGGETT et al. LEANDRO. 2013;310(19): 4811-2917 (http://education.Octane5 International/faq/MHY104) Chol/HDL ratio 3.1 <5.0 (calc) [facility] [...] MD LAB BLOOD ORDERABLES Latoya l Result [facility] [address] [address] * Comprehensive metabolic panel (06/16/2024 9:06 AM [...] BLOOD ORDERABLES Latoya l Result [facility] [address] [place] [address] * Screening Mammogram Bilateral W Jona (05/06/2024 1:45 PM CDT) Anatomical Region Laterality Modality Breast Bilateral Mammography Narrative 05/07/2024 3:59 PM CDT Mammogram Technique: Bilateral Digital Breast Tomosynthesis, Bilateral C-view 2D Screening mammogram. Views obtained: bilateral craniocaudal and bilateral mediolateral oblique. Computer Aided Detection was performed. Mammogram Findings: The present examination has been compared to prior imaging studies performed at [facility] on 03/05/2018, and at [facility] on 02/07/2018 and 05/19/2020. The breasts [...] compared to prior imaging studies performed at [facility] on 03/05/2018, and at [facility] on 02/07/2018 and 05/19/2020. The breasts [...] * Hepatitis C antibody (03/16/2018 10:58 AM MANAGER TELEMETRY) Hep C Ab NON-REACTI VE NON-REACTI VE [facility] [place] SIGNAL TO CUT-OFF 0.03 <1.00 [facility] [place] Blood specimen (specimen) 03/16/2018 10:58 AM MANAGER TELEMETRY 03/16/2018 10:59 AM MANAGER TELEMETRY Narrative [facility] - 03/18/2018 10:16 AM MANAGER TELEMETRY FASTING:YES FASTING: YES Resulting Agency Comment Performing Organization Information: Site ID: [id number] Name: [facility] Pedro Address: [address] [address] Director: Davie Gregorio D.O., MPH us Tunde Espinosa MD LAB MICROBIOLOGY - GENERA L ORDERABLES Final Result [facility] [place] from Last 3 Months or Most Recently Relevant to Health Maintenance Insurance [employer] CIGNA CIGNA CIGNA CIGNA Care Teams Electrical Machine Builder Relationship Specialty Start Date End Date Tunde Espinosa MD [facility] [facility] [address] [place] [address] PCP - General 06/01/16 Jacque Hunter MD [address] [facility] [phone] [place] [address] Consulting Physician Obstetrics and Gynecology 02/07/18 Diego Elliott MD [address] [place] [address] [id number] Referring Physician Neurology 02/10/20
--- OUTSIDE RECORDS SUMMARY | 2024-09-15 16:21 | XMS_ITS | Encounter Summary ---
Author Organization [facility] Clinical [facility] Address [address] [facility] [address] [place] [address] Phone Care Team Providers Care Lifestyle Director Name Role Phone Tunde Espinosa MD Primary Care Provider [phone] Jacque Hunter MD Unavailable [phone] Diego Elliott MD Unavailable [phone] Encounter Details Date Type Department Care Team (Late st Contact Info) Description 09/02/2024 Results Follow-Up [address] [facility] [address] [place] [address] Tunde Espinosa MD [address] [place] [address] CBC with auto differential, Comprehensive metabolic panel, TSH Social History Tobacco Use Types Packs/Day Years [...] on file Legal Sex Female 2:16 AM ENVIRONMENTAL GEOLOGIST Gender Identity Female 02/09/2020 6:22 PM ENVIRONMENTAL GEOLOGIST Sexual Orientation Straight 02/09/2020 6: 22 PM ENVIRONMENTAL GEOLOGIST 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; 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 on bre e documented as of this encounter Plan of Treatment Not on file documented as of this encounter Visit Diagnoses Not on filedocumented in this encounter Care Teams Lifestyle Director Relationship Specialty Start Date End Date Tunde Espinosa MD [address] [place] [address] [address] [address] PCP - General 06/01/16 Jacque Hunter MD [address] [facility] [phone] [place] [address] Consulting Physician Obstetrics and Gynecology 02/07/18 Diego Elliott MD [address] [address] Referring Physician Neurology 02/10/20 documented as of this encounter
--- NOTE | 2024-09-15 16:29 | ECG_ITS ---
Test Date: 2024-09-15 16:41:32 Measurements Intervals [place] Rate: 107 P: 34 CT: 172 QRS: -10 QRSD: 89 T: 10 QT: 333 QTc: 446 Interpretive Statements SINUS TACHYCARDIA POSSIBLE LEFT ATRIAL ENLARGEMENT BORDERLINE R WAVE PROGRESSION, ANTERIOR LEADS MINIMAL Q WAVES- HIGH LATERAL LEADS BORDERLINE ST-T WAVE ABNORMALITY- INFERIOR LEADS ABNORMAL ECG Compared to ECG 08/18/2024 13:03:57 HEART RATE HAS INCREASED Electronically Signed On 09-15-2024 19:53:59 CDT by Maco Swann D.O.
[2024-09-15 16:49] LABS: Hematocrit 42.2 % (37.0-47.0); Hemoglobin 14.1 g/dL (12.0-15.0); Immature Granulocyte Percent A 0.3 % (0-0.5); Lymphocytes Absolute Auto 2.07 K/mm3 (0.9-3.2); Mean Corpuscular HGB Conc 33.4 g/dl (32-36); Mean Corpuscular Hemoglobin 29.4 pg (26-34); Mean Corpuscular Volume 88.1 fl (80-100); Nucleated Red Blood Cells Absolute Auto 0.000 K/mm3 (0.0-0.012); Nucleated Red Blood Cells Perc 0.0 % (0.0-0.2); Platelet Count Result 259 k/mm3 (150-375); Red Blood Count 4.79 M/mm3 (4.2-5.4); White Blood Count 8.7 K/mm3 (4.5-10.0)
[2024-09-15] MEDS: ASPIRIN 81 MG CHEWABLE TABLET 324 MG PO (16:57)
[2024-09-15 17:16] LABS: Alanine Aminotransferase 37 U/L (6-35); Albumin Level 4.6 g/dL (3.5-5.1); Alkaline Phosphatase 91 U/L (38-126); Anion Gap 7 mmol/L (4-12); Aspartate Amino Transferase 44 U/L (14-36); Bilirubin,Total 0.6 mg/dL (0.2-1.3); Blood Urea Nitrogen 12 mg/dL (7-17); Calcium 9.8 mg/dL (8.4-10.2); Carbon Dioxide 30 mmol/L (22-30); Chloride 99 mmol/L (98-107); Estimated CRCL calculation 61 ml/min; Estimated Glomerular Filt Rate > 60; Glucose 127 mg/dL (65-110); Lipase 168 U/L (23-300); Potassium 3.7 mmol/L (3.4-5.0); Sodium 136 mmol/L (137-145); Total Protein 8.4 g/dL (6.3-8.2)
[2024-09-15 17:20] LABS: INR 1.0; Prothrombin Time 13.0 Seconds (11.1-14.7)
[2024-09-15 17:21] LABS: Partial Thromboplastin Time 31.2 Seconds (22.3-36.8)
[2024-09-15 17:27] LABS: Troponin I < 0.012 ng/mL (0.000-0.034)
[2024-09-15 17:29] LABS: Magnesium 2.1 mg/dL (1.6-2.3)
--- OUTSIDE RECORDS SUMMARY | 2024-09-15 17:37 | XMS_ITS | Encounter Summary ---
Author Organization [facility] Clinical [facility] Address [address] [facility] [address] [place] [address] Phone Care Team Providers Care Social Science Analyst Name Role Phone Tnude Espinosa MD Primary Care Provider [phone] Jacque Hunter MD Unavailable [phone] Diego Elliott MD Unavailable [phone] Encounter Details Date Type Department Care Team (Late st Contact Info) Description 09/02/2024 Results Follow-Up [address] [facility] 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 on bre e documented as of this encounter Plan of Treatment Not on file documented as of this encounter Visit Diagnoses Not on filedocumented in this encounter Care Teams Social Science Analyst Relationship Specialty Start Date End Date Tunde Espinosa MD [address] [place] [address] [address] [address] PCP - General 06/01/16 Jacque Hunter MD [address] [facility] [phone] [place] [address] Consulting Physician Obstetrics and Gynecology 02/07/18 Diego Elliott MD [address] [address] Referring Physician Neurology 02/10/20 documented as of this encounter
--- OUTSIDE RECORDS SUMMARY | 2024-09-15 17:37 | XMS_ITS | Clinical Summary ---
Author Organization [facility] Address [address] [place] [address] Care Team Providers Care Trade Mark Examiner Name Role Phone Tunde Espinosa MD Primary Care Provider [phone] Jacque Hunter MD Unavailable [phone] Diego Elliott MD Unavailable [phone] Allergies Active Allergy Reactions Criticality Noted Date [...] appointment Assessment & Plan (02/27/2023 8:29 AM LOSS PREVENTION AUDITOR): Recent mild FPG elevation. Subsequent normal HBA1c. Counseled on regular exercise and mediterranean diet. Recheck annually. History of thalamic stroke 03/30/2020 Assessment & Plan (04/01/2020 9:08 AM LOSS PREVENTION AUDITOR): Continue efforts to optimize CV risk. Class 1 obesity with body ma ss index (BMI) of 33.0 to 33.9 in adult 06/01/2016 Overview (02/07/2018): Assessment & Plan (05/06/2024 2:08 PM CDT): Obesity is unchanged. Discussed the patient's BMI. The BMI is above average; BMI management plan is completed. General weight loss/lifestyle modification strategies discussed. Assessment & Plan (02/27/2023 8:30 AM LOSS PREVENTION AUDITOR): Obesity is unchanged. Discussed the patient's BMI. [...] etc). Assessment & Plan (04/01/2020 9:08 AM LOSS PREVENTION AUDITOR): Obesity is unchanged. Discussed the patient's BMI. The BMI is above average; BMI management plan is completed. General weight loss/lifestyle modification strategies discussed (elicit support from others; identify saboteurs; non-food rewards, etc). Counseled on dietary options including mediterranean diet and intermittent fasting Assessment & Plan (02/07/2018 2:55 PM LOSS PREVENTION AUDITOR): Obesity is mild. Discussed the patient's BMI. [...] changes Assessment & Plan (02/07/2018 2:35 PM LOSS PREVENTION AUDITOR): I spent 15 minutes counseling her on [...] compliance Assessment & Plan (02/27/2023 8:33 AM LOSS PREVENTION AUDITOR): Hypertension is stable Continue current treatment regimen. [...] appointment. Assessment & Plan (04/01/2020 9:20 AM LOSS PREVENTION AUDITOR): Hypertension is uncontrolled Continue current treatment regimen. Weight loss. Regular aerobic exercise. Medication changes per orders. Ambulatory blood pressure monitoring. Blood pressure will be reassessed 6 weeks.. Resume Amlodipine Assessment & Plan (02/10/2020 8:27 AM LOSS PREVENTION AUDITOR): Hypertension is uncontrolled Weight loss. Regular aerobic [...] months. Assessment & Plan (02/07/2018 2:35 PM LOSS PREVENTION AUDITOR): Hypertension is controlled. Continue current treatment regimen. Weight loss. Regular aerobic exercise. Continue current medications. Blood pressure will be reassessed at the next regular appointment. Resolved Problems Problem Noted Date Diagnosed Date Resolved Date Cerebrovascular accident (CV A) of left thalamus 02/10/2020 03/30/2020 Assessment & Plan (02/10/2020 8:32 AM LOSS PREVENTION AUDITOR): Recent DX on Brain MRI 01/29/20. Likely on basis of uncontrolled HTN. She has scheduled F/U with neurology. No residual deficit. Abnormal liver function tests 09/15/2014 05/09/2018 Overview (02/07/2018): Assessment & Plan (02/07/2018 2:34 PM LOSS PREVENTION AUDITOR): Mild when last checked. Benign exam. Check labs. Encounters Date Type Department Care Team Description 09/02/2024 Results Follow-Up [address] [address] Tunde Espinosa MD CBC with auto differential, Comprehensive metabolic panel, TSH 08/27/2024 8:45 AM CDT Ancillary Procedure [facility] [address] [place] [address] Bradycardia 08/26/2024 2:30 PM CDT Office Visit [address] [address] Tunde Espinosa MD Primary hypertension (Primary Dx); Bradycardia 08/26/2024 Orders Only [address] [address] Tunde Espinosa MD 08/26/[address] [address] CarmelaMarcie villarreal 06/17/2024 2:30 PM CDT Office Visit [address] [address] Tunde Espinosa MD Primary hypertension (Primary Dx); IFG (impaired fasting glucose) 06/17/2024 Results Follow-Up [address] [address] Tunde Espinosa MD CBC with auto differential, Comprehensive metabolic panel, Lipid panel, Additional followed-up results: 5 from Last 3 Months Immunizations Immunization Administration Dates Next Due Influenza, Quadrivalent, Spl it, Preservative Free, Intramuscular 12/23/2021,11/07/2019,02/05/2017 Influenza, Trivalent, Preser vative Free, Intramuscular 11/30/2023,12/06/2013,12/06/2012,12/06 Moderna SARS-CoV-2 Monovalen t Vaccination (12+ YRS) 05/05/2020 Tdap 04/07/2013 Surgical History Surgery Date Site/Laterality Comments [facility] DELIVERY ONLY Section - (Added by TW Conv) [facility] TOTAL ABDOMINAL HYSTERECT W/WO RMVL TUBE OVARY [...] on file Legal Sex Female 2:16 AM LOSS PREVENTION AUDITOR Gender Identity Female 02/09/2020 6:22 PM LOSS PREVENTION AUDITOR Sexual Orientation Straight 02/09/2020 6: 22 PM LOSS PREVENTION AUDITOR 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; 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 on ber e Obstetrics History Last Filed Vital Signs [...] 09/01/2024 9:52 AM CDT Primary hypertension Bradycardia VA ECG ROUTINE ECG W/LEAST 12 LDS W/I&R [...] HEPATITIS C ANTIBODY Routine 03/16/2018 10:58 AM LOSS PREVENTION AUDITOR Abnormal liver function tests Need for hepatitis [...] BLOOD ORDERABLES Latoya l Result [facility] [address] [address] * TSH (09/01/2024 9:52 AM CDT) TSH 0.54 0.40 - 4.50 mIU/L [facility] Blood 09/01/2024 9:52 AM CDT 09/01/2024 9:52 AM CDT us Tunde Espinosa MD LAB BLOOD ORDERABLES Latoya l Result [facility] [address] [address] * (ABNORMAL) Comprehensive metabolic panel (09/01/2024 9:52 [...] ORDERABLES Latoya l Result [facility] [address] [address] * VA ECG ROUTINE ECG W/LEAST 12 LDS W/I&R [...] 9:06 AM CDT 06/16/2024 9:07 AM CDT [facility] - 06/17/2024 4:08 AM CDT FASTING:YES FASTING: YES us Tunde Espinosa MD LAB BLOOD ORDERABLES Latoya wagoner Result [facility] [address] [facility] [place] [address] * Hepatitis B core antibody, total (06/16/2024 9:06 AM CDT) Hep B core IgG/IgM NON-REACTI VE NON-REACTI VE [facility] Comment: For additional information, please refer to http://Gatekeeper System.EquaMetrics/faq/YRF534 (This link is being provided for informational/ educational purposes only.) 06/16/2024 9:06 AM CDT 06/16/2024 9:07 AM CDT Narrative [facility] - 06/17/2024 4:08 AM CDT FASTING:YES FASTING: YES Tunde Espinosa MD LAB MICROBIOLOGY - AppsBuilder L ORDERABLES Final Result Performing Organization Address [facility] Co de Phone Number [facility] [address] [place] [address] * (ABNORMAL) Hepatitis B surface antibody (immune status) (06/16/2024 9:06 AM CDT) HBsAb (immune status) REACTIVE(A ) NON-REACTI VE [facility] 06/16/2024 9:06 AM CDT 06/16/2024 9:07 AM CDT Narrative [facility] - 06/17/2024 4:08 AM CDT FASTING:YES FASTING: YES Tunde Espinosa MD LAB MICROBIOLOGY - AppsBuilder L ORDERABLES Final Result Performing Organization Address [facility] Co de Phone Number [facility] [address] [place] [address] * Hepatitis B Surface Antigen (06/16/2024 9:06 AM CDT) HepBsAg NON-REACTI VE NON-REACTI VE [facility] Comment: For additional information, please refer to http://Gatekeeper System.EquaMetrics/faq/GIH974 (This link is being provided for informational/ educational purposes only.) 06/16/2024 9:06 AM CDT 06/16/2024 9:07 AM CDT Narrative [facility] - 06/17/2024 4:08 AM CDT FASTING:YES FASTING: YES Result [facility] Tunde Espinosa MD LAB MICROBIOLOGY - GENERA L ORDERABLES Final Result Performing Organization Address [facility] Co de Phone Number [facility] [address] [place] [address] * TSH (06/16/2024 9:06 AM CDT) TSH 0.49 0.40 - 4.50 mIU/L [facility] Blood 06/16/2024 9:06 AM CDT 06/16/2024 9:07 AM CDT Narrative [facility] - 06/17/2024 4:08 AM CDT FASTING:YES FASTING: YES Tunde Espinosa MD LAB BLOOD ORDERABLES Latoya l Result Performing Organization Address [facility] de Phone Number [facility] [address] [place] [address] * (ABNORMAL) Hemoglobin A1c (06/16/2024 9:06 AM [...] l Result Performing Organization Address [facility]/ZIP Co de Phone Number [facility] [address] [place] [address] * Lipid panel (06/16/2024 9:06 AM CDT) [...] LDL-C. Bogdan LEGGETT et al. LEANDRO. 2013;310(19): 3269-9745 (http://education.OvaGene Oncology/faq/PQP035) Chol/HDL ratio 3.1 <5.0 (calc) [facility] [...] MD LAB BLOOD ORDERABLES Latoya l Result [facility] [address] [address] * Comprehensive metabolic panel (06/16/2024 9:06 AM [...] BLOOD ORDERABLES Latoya l Result [facility] [address] [place] [address] * Screening Mammogram Bilateral W Jona (05/06/2024 1:45 PM CDT) Anatomical Region Laterality Modality Breast Bilateral Mammography Narrative 05/07/2024 3:59 PM CDT Mammogram Technique: Bilateral Digital Breast Tomosynthesis, Bilateral C-view 2D Screening mammogram. Views obtained: bilateral craniocaudal and bilateral mediolateral oblique. Computer Aided Detection was performed. Mammogram Findings: The present examination has been compared to prior imaging studies performed at [facility] on 03/05/2018, and at [facility] on 02/07/2018 and 05/19/2020. The breasts are [...] compared to prior imaging studies performed at [facility] on 03/05/2018, and at [facility] on 02/07/2018 and 05/19/2020. The breasts are [...] * Hepatitis C antibody (03/16/2018 10:58 AM LOSS PREVENTION AUDITOR) Hep C Ab NON-REACTI VE NON-REACTI VE [facility] SIGNAL TO CUT-OFF 0.03 <1.00 [facility] [place] Blood specimen (specimen) 03/16/2018 10:58 AM LOSS PREVENTION AUDITOR 03/16/2018 10:59 AM LOSS PREVENTION AUDITOR Narrative [facility] - 03/18/2018 10:16 AM LOSS PREVENTION AUDITOR FASTING:YES FASTING: YES Resulting Agency Comment Performing Organization Information: Site ID: [facility] Name: [facility] Pedro Address: [address] [address] Director: Davie Gregorio D.O., MPH us Tunde Espinosa MD LAB MICROBIOLOGY - GENERA L ORDERABLES Final Result [facility] [place] from Last 3 Months or Most Recently Relevant to Health Maintenance Insurance [employer] CIGNA CIGNA CIGNA CIGNA Care Teams Trade Mark Examiner Relationship Specialty Start Date End Date Tuned Espinosa MD [facility] [place] [address] PCP - General 06/01/16 Jacque Hunter MD [address] [facility] [id number] [place] [address] Consulting Physician Obstetrics and Gynecology 02/07/18 Diego Elliott MD [address] [place] [address] [id number] Referring Physician Neurology 02/10/20
[2024-09-15 17:59] LABS: Thyroid Stimulating Hormone Reflex 0.603 uIU/mL (0.465-4.68)
[2024-09-15] MEDS: SODIUM CHLORIDE 0.9% IV 1,000 ML 999 ML IV CONT (18:14)
--- NOTE | 2024-09-15 19:01 | ED.ARRPALP ---
HPI - Arrhythmia/Palpitations General Chief Complaint: Arrhythmia/Palpitations <CHELA Porter Last Filed: 09/15/24 22:22> Stated Complaint: Heart rate dropping, light headed <CHELA Porter Last Filed: 09/15/24 22:22> Time Seen by Provider: 09/15/24 17:06 <CHELA Porter Last Filed: 09/15/24 22:22> Source: patient <CHELA Porter Last Filed: 09/15/24 22:22> Mode of arrival: ambulatory <CHELA Porter Last Filed: 09/15/24 22:22> Limitations: no limitations <CHELA Porter Last Filed: 09/15/24 22:22> History of Present Illness HPI narrative: Patient is a 63 y/o female who presents to the ED with c/o palpitations. Patient reports she had multiple episodes of dizziness/lightheadedness throughout the day today while working from home. She would look at her Apple Watch and her HR was low each time into the mid 30s. She states this would last less than 1 minute at a time before resolving. She did experience midsternal CP with one of the episodes. Prompted here for further evaluation. HR upon arrival in the 120s. Patient denies symptoms at this time. Denies LOC. Patient reports she has had intermittent episodes of feeling off over the past few weeks. She saw her primary care doctor for this and had a monitor worker placed for 2 weeks. She is still currently wearing this. Does not have the results of this yet. Has never seen a technical support assistant. Denies shortness of breath. Denies fevers, cough, pain or swelling in legs. <CHELA Porter Last Filed: 09/15/24 22:22> Related Data Home Medications: Home Medications ?Medication ?Instructions ?Recorded ?Confirmed ?Last Taken ?Type telmisartan 40 mg tablet 40 mg PO DAILY 02/11/20 09/15/24 Unknown History amlodipine 5 mg tablet 5 mg PO HS 09/15/24 09/15/24 Unknown History atorvastatin 40 mg tablet 40 mg PO HS 09/15/24 09/15/24 Unknown History <Rosie Zurita PA-C - Last Filed: 09/15/24 22:22> Allergies/Adverse Reactions: Allergies Allergy/AdvReac Type Severity Reaction Status Date / Time lisinopril AdvReac Cough Verified 09/15/24 21:27 <Rosie Zurita PA-C - Last Filed: 09/15/24 22:22> Review of Systems Review of Systems: All systems reviewed & are unremarkable except as noted in HPI. <Rosie Zurita PA-C - Last Filed: 09/15/24 22:22> All systems reviewed & are unremarkable except as noted in HPI and below <Rosie Zurita PA-C - Last Filed: 09/15/24 22:22> [facility] Past Medical History Medical History: Medical History Hyperlipidemia Stroke Paresthesias Essential hypertension <Rosie Zurita PA-C - Last Filed: 09/15/24 22:22> Surgical History Surgical History: Surgical History History of partial hysterectomy History of 2 sections History of tonsillectomy and adenoidectomy <Rosie Zurita PA-C - Last Filed: 09/15/24 22:22> Family History Family History: Family History Mother Cerebrovascular accident Diabetes mellitus Hypertension Grandparent Cerebrovascular accident <Rosie Zurita PA-C - Last Filed: 09/15/24 22:22> Social History Social History: Social History Social History: The patient lives in [place], [place] with her children. She works for a [employer] in [place] but has been working at home since April 2019. No alcohol, tobacco, or illicit substance use. She designates her son, Xavier, as her surrogate decision maker and she wishes to be a full code. Smoking status: Never smoker Alcohol intake: current Drinks per week: 1 Substance use: never Substance use type: does not use Lack of Transportation: No Lack of Food: Never True Current Housing: I Have Housing Concerned About Future Housing: No Difficulty Paying Gas/Electric Bills: No Difficulty Paying for Meds: No Currently Unemployed: No Education: High School Diploma/GED Difficulty w/ Childcare or Family Care: No Gender identity (if verbalized by the patient): Female Spiritual care concerns: No <Rosie Zurita PA-C - Last Filed: 09/15/24 22:22> Exam Narrative: GENERAL: Well appearing, well-nourished, non-toxic, in no acute distress. HEAD: Normocephalic, atraumatic. RESPIRATORY: Airway patent, respirations nonlabored. Clear to auscultation bilaterally, no rales, rhonchi, wheezing. CARDIOVASCULAR: Borderline tachycardic with regular rhythm without murmurs, rubs, or gallops. ABDOMINAL: Soft, nontender, nondistended. Normoactive BS. MUSCULOSKELETAL: Moves all extremities. No gross deformities. No peripheral edema. SKIN: Warm, dry, normal color. NEURO: A&O X3. Speech clear. Cranial nerves II-XII grossly intact. Steady gait. No ataxic movements. No focal deficits. PSYCHIATRIC: Appropriate mood and affect. Normal interaction. <Rosie Zurita PA-C - Last Filed: 09/15/24 22:22> Course TECHNOLOGY EDUCATION INSTRUCTOR/PA Physician Supervision For this patient encounter, I reviewed the TECHNOLOGY EDUCATION INSTRUCTOR or PA documentation, treatment plan, and medical decision making; and I had alhe-ky-ihna time with this patient. <Tiago Simmons MD - Last Filed: 09/16/24 17:38> Vital Signs Vital signs: Vital Signs Temperature 98.2 F 09/15/24 16:22 Pulse Rate 123 H 09/15/24 16:22 Respiratory Rate 16 09/15/24 16:22 Blood Pressure 192/85 H 09/15/24 16:22 Pulse Oximetry 99 09/15/24 16:22 Oxygen Delivery Room Air 09/15/24 16:22 Temperature 98.0 F 09/16/24 13:54 Pulse Rate 76 09/16/24 16:00 Respiratory Rate 18 09/16/24 13:54 Blood Pressure 135/70 09/16/24 13:54 Pulse Oximetry 97 09/16/24 13:54 Oxygen Delivery Room Air 09/16/24 08:00 <Rosie Zurita PA-C - Last Filed: 09/15/24 22:22> Vital Signs Temperature 98.2 F 09/15/24 16:22 Pulse Rate 123 H 09/15/24 16:22 Respiratory Rate 16 09/15/24 16:22 Blood Pressure 192/85 H 09/15/24 16:22 Pulse Oximetry 99 09/15/24 16:22 Oxygen Delivery Room Air 09/15/24 16:22 Temperature 98.0 F 09/16/24 13:54 Pulse Rate 76 09/16/24 16:00 Respiratory Rate 18 09/16/24 13:54 Blood Pressure 135/70 09/16/24 13:54 Pulse Oximetry 97 09/16/24 13:54 Oxygen Delivery Room Air 09/16/24 08:00 <Tiago Simmons MD - Last Filed: 09/16/24 17:38> MDM - Arrhythmia/Palpitations MDM Narrative Medical decision making narrative: Patient presented to ED with episodes of lightheadedness today associated with bradycardia. This was captured on her Apple watch. I did review this data with patient on her phone. Had several episodes of heart rate in the 30s today. Patient states episodes lasted approx 1 minute at a time. Patient borderline tachycardic here. Vitals are otherwise stable. EKG showing sinus tachycardia, no significant ST changes. Laboratory studies without leukocytosis or anemia. Stable electrolytes. Normal magnesium. Normal TSH. Troponin undetectable X2. Chest x-ray is clear. Patient did call out that she was feeling lightheaded and unwell. Heart rate was noted to be in the 140s at that time. Appeared sinus on telemetry strip. Blood pressure remaining stable. Concern for intermittent dysrhythmias, with symptomatic bradycardia and tachycardia. Will admit for further cardiac eval. Discussed case with Dr. West, cardiology, agrees with plan, will consult. Discussed case with Clint, TECHNOLOGY EDUCATION INSTRUCTOR hospitalist, accepted patient for admission. Patient in agreement with plan and admission. <Rosie Zurita PA-C - Last Filed: 09/15/24 22:22> Medical Records Attestation: I reviewed the patient's medical records. <Rosie Zurita PA-C - Last Filed: 09/15/24 22:22> Lab Data Attestation: I reviewed the patient's lab results. <Rosie Zurita PA-C - Last Filed: 09/15/24 22:22> Result diagrams: 09/16/24 05:30 09/16/24 05:30 <Rosie Zurita PA-C - Last Filed: 09/15/24 22:22> Labs: Lab Results 09/15/24 09/15/24 09/15/24 Range/Units 16:36 16:40 19:30 WBC 8.7 (4.5-10.0) K/mm3 RBC 4.79 (4.2-5.4) M/mm3 Hgb 14.1 (12.0-15.0) g/dL Hct 42.2 (37.0-47.0) % MCV 88.1 (80-100) fl MCH 29.4 (26-34) pg MCHC 33.4 (32-36) g/dl RDW 13.5 (11.5-14.5) % Plt Count 259 (150-375) k/mm3 MPV 10.2 (7.4-10.4) fl Immature Gran % (Auto) 0.3 (0-0.5) % Neut % (Auto) 65.9 (45.5-73.1) % Lymph % (Auto) 23.8 (18.3-44.2) % [place] % (Auto) 7.0 (2.6-8.5) % Eos % (Auto) 2.2 (0-4.4) % Baso % (Auto) 0.8 (0.2-1.2) % Lymph # (Auto) 2.07 (0.9-3.2) K/mm3 [place] # (Auto) 0.6 (0.1-0.6) K/mm3 Eos # (Auto) 0.2 (0-0.3) K/mm3 Baso # (Auto) 0.1 (0.0-0.1) K/mm3 Abs Immat Gran (auto) 0.03 (0.00-0.031) K/mm3 Absolute Neuts (auto) 5.7 (1.3-6.7) K/mm3 Absolute Nucleated RBC 0.000 (0.0-0.012) K/mm3 Nucleated RBC % 0.0 (0.0-0.2) % PT 13.0 (11.1-14.7) Seconds INR 1.0 APTT 31.2 (22.3-36.8) Seconds Sodium 136 L (137-145) mmol/L Potassium 3.7 (3.4-5.0) mmol/L Chloride 99 (98-107) mmol/L Carbon Dioxide 30 (22-30) mmol/L Anion Gap 7 (4-12) mmol/L BUN 12 (7-17) mg/dL Creatinine 0.81 (0.7-1.0) mg/dL Estim Creat Clear Calc 61 ml/min Estimated GFR > 60 (59 - ) Glucose 127 H (65-110) mg/dL Calcium 9.8 (8.4-10.2) mg/dL Magnesium 2.1 (1.6-2.3) mg/dL Total Bilirubin 0.6 (0.2-1.3) mg/dL AST 44 H (14-36) U/L ALT 37 H (6-35) U/L Alkaline Phosphatase 91 (38-126) U/L Troponin I < 0.012 < 0.012 (0.000-0.034) ng/mL Total Protein 8.4 H (6.3-8.2) g/dL Albumin 4.6 (3.5-5.1) g/dL Lipase 168 (23-300) U/L TSH (Reflex) 0.603 (0.465-4.68) uIU/mL <Rosie Zurita PA-C - Last Filed: 09/15/24 22:22> Lab Results 09/15/24 09/15/24 09/15/24 Range/Units 16:36 16:40 19:30 WBC 8.7 (4.5-10.0) K/mm3 RBC 4.79 (4.2-5.4) M/mm3 Hgb 14.1 (12.0-15.0) g/dL Hct 42.2 (37.0-47.0) % MCV 88.1 (80-100) fl MCH 29.4 (26-34) pg MCHC 33.4 (32-36) g/dl RDW 13.5 (11.5-14.5) % Plt Count 259 (150-375) k/mm3 MPV 10.2 (7.4-10.4) fl Immature Gran % (Auto) 0.3 (0-0.5) % Neut % (Auto) 65.9 (45.5-73.1) % Lymph % (Auto) 23.8 (18.3-44.2) % [place] % (Auto) 7.0 (2.6-8.5) % Eos % (Auto) 2.2 (0-4.4) % Baso % (Auto) 0.8 (0.2-1.2) % Lymph # (Auto) 2.07 (0.9-3.2) K/mm3 [place] # (Auto) 0.6 (0.1-0.6) K/mm3 Eos # (Auto) 0.2 (0-0.3) K/mm3 Baso # (Auto) 0.1 (0.0-0.1) K/mm3 Abs Immat Gran (auto) 0.03 (0.00-0.031) K/mm3 Absolute Neuts (auto) 5.7 (1.3-6.7) K/mm3 Absolute Nucleated RBC 0.000 (0.0-0.012) K/mm3 Nucleated RBC % 0.0 (0.0-0.2) % PT 13.0 (11.1-14.7) Seconds INR 1.0 APTT 31.2 (22.3-36.8) Seconds Sodium 136 L (137-145) mmol/L Potassium 3.7 (3.4-5.0) mmol/L Chloride 99 (98-107) mmol/L Carbon Dioxide 30 (22-30) mmol/L Anion Gap 7 (4-12) mmol/L BUN 12 (7-17) mg/dL Creatinine 0.81 (0.7-1.0) mg/dL Estim Creat Clear Calc 61 ml/min Estimated GFR > 60 (59 - ) Glucose 127 H (65-110) mg/dL Calcium 9.8 (8.4-10.2) mg/dL Magnesium 2.1 (1.6-2.3) mg/dL Total Bilirubin 0.6 (0.2-1.3) mg/dL AST 44 H (14-36) U/L ALT 37 H (6-35) U/L Alkaline Phosphatase 91 (38-126) U/L Troponin I < 0.012 < 0.012 (0.000-0.034) ng/mL Total Protein 8.4 H (6.3-8.2) g/dL Albumin 4.6 (3.5-5.1) g/dL Lipase 168 (23-300) U/L TSH (Reflex) 0.603 (0.465-4.68) uIU/mL <Tiago Simmons MD - Last Filed: 09/16/24 17:38> Imaging Data Attestation: I personally reviewed and interpreted this imaging study as follows: <Rosie Zurita PA-C - Last Filed: 09/15/24 22:22> Radiologist's impression: ITS Impressions Chest X-Ray 09/15/24 17:09 IMPRESSION: 1. No acute pulmonary process identified. <Rosie Zurita PA-C - Last Filed: 09/15/24 22:22> ECG Data EKG #1: Attestation: I personally reviewed and interpreted this ECG as follows: <Rosie Zurita PA-C - Last Filed: 09/15/24 22:22> ECG completion date: 09/15/24 <Rosie Zurita PA-C - Last Filed: 09/15/24 22:22> ECG completion time: 16:41 <Rosie Zurita PA-C - Last Filed: 09/15/24 22:22> EKG Interpretation: tachycardia (107), sinus rhythm and non-specific ST changes <Rosie Zurita PA-C - Last Filed: 09/15/24 22:22> Discharge Plan Discharge Clinical Impression: Episodic lightheadedness, Tachycardia, Bradycardia <Rosie Zurita PA-C - Last Filed: 09/15/24 22:22> Patient Disposition: Still a Patient <Rosie Zurita PA-C - Last Filed: 09/15/24 22:22> Condition: Stable <Rosie Zurita PA-C - Last Filed: 09/15/24 22:22>
--- NOTE | 2024-09-15 19:14 | ECG_ITS ---
Test Date: 2024-09-15 19:24:00 Measurements Intervals [place] Rate: 94 P: 49 RI: 201 QRS: -2 QRSD: 86 T: 1 QT: 337 QTc: 423 Interpretive Statements SINUS RHYTHM POSSIBLE LEFT ATRIAL ENLARGEMENT BORDERLINE R WAVE PROGRESSION, ANTERIOR LEADS BORDERLINE ST-T WAVE ABNORMALITY- INFERIOR LEADS BORDERLINE ECG Compared to ECG 09/15/2024 16:41:32 HEART RATE HAS DECREASED Electronically Signed On 09-15-2024 19:53:26 CDT by Maco Swann D.O.
[2024-09-15 20:04] LABS: Troponin I < 0.012 ng/mL (0.000-0.034)
[2024-09-15] MEDS: ACETAMINOPHEN 325 MG TABLET 650 MG PO (21:59)
[2024-09-15 23:04] LABS: Troponin I < 0.012 ng/mL (0.000-0.034)
[2024-09-15] MEDS: POTASSIUM CHLORIDE 20 MEQ PACKET (FOR LIQUID) 40 MEQ PO (23:37)
[2024-09-16] VITALS (10 sets, daily range): BP systolic 128–155; BP diastolic 68–78; PULSE 66–88; RESP 14–20; TEMP 36.6–36.7; O2SAT 97–99
--- NOTE | 2024-09-16 | ECHO_ITS ---
Patient Info Name: Sasha Carrillo Age: 63 years : 1960 Gender: Female Ht: 61 in Wt: 180 lbs BSA: 1.91 m2 HR: 81 bpm BP: 128 / 77 mmHg Technical Quality: Good Exam Date: 09/16/2024 9:16 AM Patient Status: I Admit Date: 09/15/2024 Exam Type: CA echo doppler color flow Complete two-dimensional, color flow and Doppler transthoracic echocardiogram is performed. Staff Referring Physician: Tiago Simmons Manager Acquisition: Heidi Wyatt Attending Provider: Thang Carlos Summary 1. Complete two-dimensional, color flow and Doppler transthoracic echocardiogram is performed. 2. There is normal biventricular size and systolic function. 3. There are no significant valvular abnormalities. Left Ventricle The left ventricle is normal in size and systolic function. The left ventricular ejection fraction is visually estimated to be 60-65%. Right Ventricle The right ventricle is normal in size and systolic function. Left Atria The left atrium is normal size. Right Atria The right atrium is normal size. Atrial Septum The atrial septum is visually intact. Aortic Valve The aortic valve is trileaflet and opens well. There is no aortic regurgitation. Pulmonic Valve The pulmonic valve is normal. There is no pulmonic valve regurgitation. Mitral Valve The mitral valve is normal. There is no mitral regurgitation. Tricuspid Valve The tricuspid valve is normal. There is trace tricuspid regurgitation. Pericardium/Pleural Pericardium is normal in appearance with no evidence for significant pericardial effusion. Inferior Vena Cava Normal inferior vena cava with >50% collapse upon inspiration consistent with normal right atrial pressure, 3 mmHg. Aorta The aortic root at the level of the sinus of Valsalva measures 2.8 cm in diameter. Left Ventricular Outflow Tract Name Value Normal LVOT 2D LVOT Diameter 1.6 cm LVOT Doppler LVOT Peak Velocity 124 cm/s LVOT Peak Gradient 6 mmHg LVOT Mean Gradient 4 mmHg LVOT VTI 27 cm LVOT VTI/AV VTI Ratio 0.8 LVOT Stroke Volume 54 ml LVOT CO 10.9 l/min LVOT CI 5.7 l/min/m2 Pulmonic Valve Name Value Normal PV Doppler PV Peak Velocity 91 cm/s PV Peak Gradient 3 mmHg Mitral Valve Name Value Normal MV Diastolic Function MV E Peak Velocity 100 cm/s MV A Peak Velocity 125 cm/s MV E/A 0.8 MV Decel Time (PW) 198 ms MV Annular TDI MV E/e' (Septal) 11.3 MV E/e' (Lateral) 13.7 MV E/e' (Average) 12.5 Tricuspid Valve Name Value Normal TV Regurgitation Doppler TR Peak Velocity 242 cm/s TR Peak Gradient 24 mmHg Estimated PAP/RSVP RA Pressure 3 mmHg <=5 PA Systolic Pressure 27 mmHg <36 RV Systolic Pressure 27 mmHg <36 TV Annular TDI TV Lateral Flaquita s' Velocity 14.6 cm/s >=9.5 Aorta Name Value Normal Ascending Aorta Ao Root Diameter (MM) 3.1 cm Ao Root Diam Index (MM) 1.6 cm/m2 Aortic Valve Name Value Normal AV Doppler AV Peak Velocity 154 cm/s AV Peak Gradient 10 mmHg AV Mean Gradient 6 mmHg AV VTI 35 cm AV Area (Cont Eq VTI) 1.5 cm2 >=3.0 AV Area (Cont Eq Jose) 1.6 cm2 AV DI (Jose) 0.80 AV Regurgitation 2D LVOT Area 2.0 cm2 Ventricles Name Value Normal LV Dimensions 2D/MM IVS Diastolic Thickness (2D) 1.3 cm 0.6-1.0 LVID Diastole (2D) 3.7 cm 3.8-5.2 LVIW Diastolic Thickness (2D) 1.0 cm 0.6-0.9 LVID Systole (2D) 2.1 cm 2.2-3.5 LVOT Diameter 1.6 cm LV Mass (2D Cubed) 132.64 g 67.00-162.00 LV Mass Index (2D Cubed) 69 g/m2 43-95 Relative Wall Thickness (2D) 0.51 <=0.42 LV Fractional Shortening/Ejection Fraction 2D/MM LV Fractional Shortening (2D) 44 % 27-45 LV EF (2D Teichholz) 76 % LV Diastolic Volume (4C MOD) 66 ml LV EF (4C MOD) 73 % LV Diastolic Volume (2C MOD) 69 ml LV EF (2C MOD) 75 % LV Diastolic Volume (BP MOD) 68 ml 46-106 LV Diastolic Volume Index (BP MOD) 35 ml/m2 29-61 LV Systolic Volume (BP MOD) 18 ml 14-42 LV Systolic Volume Index (BP MOD) 10 ml/m2 8-24 LV EF (BP MOD) 73 % 54-74 LV Diastolic Length (4C) 7.6 cm LV Systolic Length (4C) 5.4 cm LV Stroke Volume (4C MOD) 48 ml RV Dimensions 2D/MM RVID Diastole (2D) 3.1 cm 2.1-3.5 Atria Name Value Normal LA Dimensions LA Dimension (MM) 3.2 cm 2.7-3.8 LA Volume (4C A-L) 33 ml LA Volume (BP A-L) 39 ml RA Dimensions RA Systolic Major Lincoln Length (4C) 4.4 cm 2.2-2.8 RA Area (4C) 10.9 cm2 <=18.0 Report Signatures
[2024-09-16 06:04] LABS: Hematocrit 39.0 % (37.0-47.0); Hemoglobin 12.8 g/dL (12.0-15.0); Immature Granulocyte Percent A 0.5 % (0-0.5); Lymphocytes Absolute Auto 1.81 K/mm3 (0.9-3.2); Mean Corpuscular HGB Conc 32.8 g/dl (32-36); Mean Corpuscular Hemoglobin 29.2 pg (26-34); Mean Corpuscular Volume 88.8 fl (80-100); Nucleated Red Blood Cells Absolute Auto 0.000 K/mm3 (0.0-0.012); Nucleated Red Blood Cells Perc 0.0 % (0.0-0.2); Platelet Count Result 235 k/mm3 (150-375); Red Blood Count 4.39 M/mm3 (4.2-5.4); White Blood Count 6.0 K/mm3 (4.5-10.0)
[2024-09-16 06:30] LABS: Alanine Aminotransferase 30 U/L (6-35); Albumin Level 3.9 g/dL (3.5-5.1); Alkaline Phosphatase 86 U/L (38-126); Anion Gap 7 mmol/L (4-12); Aspartate Amino Transferase 40 U/L (14-36); Bilirubin,Total 0.5 mg/dL (0.2-1.3); Blood Urea Nitrogen 8 mg/dL (7-17); Calcium 9.2 mg/dL (8.4-10.2); Carbon Dioxide 24 mmol/L (22-30); Chloride 106 mmol/L (98-107); Estimated CRCL calculation 71 ml/min; Estimated Glomerular Filt Rate > 60; Glucose 102 mg/dL (65-110); Magnesium 2.2 mg/dL (1.6-2.3); Potassium 3.9 mmol/L (3.4-5.0); Sodium 137 mmol/L (137-145); Total Protein 7.0 g/dL (6.3-8.2)
--- NOTE | 2024-09-16 06:57 | PM.IMHP ---
H&P: HPI History of Present Illness Date/Time: 09/16/24 06:57 Chief Complaint: bradycardia with dizziness/lightheadedness Narrative: 63 year old male with past medical history of hypertension, hyperlipidemia, and CVA presents to the hospital for dizziness/lightheadedness. Patient states that for 2-3 weeks she has been experiencing intermittent lightheadedness with noted bradycardia on her Apple watch into the 30s. Patient was seen by her primary care provider where a EKG was obtained and further lab work, patient states all returned normal. She was placed on a cardiac event monitor for 2 weeks which she still has in place and is to be completed on Sunday. She notes that the lightheadedness has been increasing in frequency the past couple days. She denies any exacerbating factors as she is primarily sitting at home whenever they occur. She does note she had a sharp central chest pain that she described as a pinprick lasting one secondary before resolving. She also notes intermittent chest pressure with some episodes of dizziness as well. She denies any associated shortness of breath, diaphoresis, nausea/vomiting. She denies any history of arrhythmias. Discuss code status with patient she is to remain full code at this time. ED workup: CBC with WBC 6, H/H 12.8/39, and PLT 235. CMP with Na 137, K 3.8, Cl 106, CO2 24, BUN/Cr 8/0.69. Calcium 9.2, Mag 2.2. LFTs WNL. TSH WNL. Troponin negative. EKG sinus tachycardia HR [address] changes, repeat EKG sinus rhythm. Chest XR: No acute pulmonary process identified. Review of Systems Review of Systems: All systems reviewed & are unremarkable except as noted in HPI and below [facility] Past Medical History Medical History Hyperlipidemia Stroke Paresthesias Essential hypertension Surgical History Surgical History History of partial hysterectomy History of 2 sections History of tonsillectomy and adenoidectomy Family History Family History Mother Cerebrovascular accident Diabetes mellitus Hypertension Grandparent Cerebrovascular accident Social History Social History Social History: The patient lives in [place], [place] with her children. 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 No alcohol, tobacco, or illicit substance use. She designates her son, Xavier, as her surrogate decision maker and she wishes to be a full code. Smoking status: Never smoker Alcohol intake: current Drinks per week: 1 Substance use: never Substance use type: does not use Lack of Transportation: No Lack of Food: Never True Current Housing: I Have Housing Concerned About Future Housing: No Difficulty Paying Gas/Electric Bills: No Difficulty Paying for Meds: No Currently Unemployed: No Education: High School Diploma/GED Difficulty w/ Childcare or Family Care: No Gender identity (if verbalized by the patient): Female Spiritual care concerns: No Meds Home Medications and Allergies Home Medications ?Medication ?Instructions ?Recorded ?Confirmed ?Type aspirin 81 mg tablet,delayed 81 mg PO QAM #30 tabs 01/31/20 09/15/24 Rx release hydrochlorothiazide 12.5 mg capsule 12.5 mg PO QAM #30 caps 01/31/20 09/15/24 Rx telmisartan 40 mg tablet 40 mg PO DAILY 02/11/20 09/15/24 History amlodipine 5 mg tablet 5 mg PO HS 09/15/24 09/15/24 History atorvastatin 40 mg tablet 40 mg PO HS 09/15/24 09/15/24 History Allergies Allergy/AdvReac Type Severity Reaction Status Date / Time lisinopril AdvReac Cough Verified 09/15/24 21:27 Vital Signs Vital Signs - 24 hr 09/15/24 16:22 09/15/24 16:35 09/15/24 16:43 Temperature 98.2 F 98.2 F Pulse Rate 123 H 121 H 111 H Respiratory Rate 16 20 21 H Blood Pressure 192/85 H 192/85 H Pulse Oximetry 99 98 100 Oxygen Delivery Room Air Room Air 09/15/24 16:45 09/15/24 16:57 09/15/24 18:17 Temperature Pulse Rate 105 H 108 H 104 H Respiratory Rate 16 17 18 Blood Pressure 141/122 H 128/76 Pulse Oximetry 100 Oxygen Delivery 09/15/24 21:30 09/15/24 22:59 08/12/25 00:00 Temperature 96.4 F L Pulse Rate 95 66 Respiratory Rate 18 Blood Pressure 132/75 Pulse Oximetry 99 Oxygen Delivery Room Air 09/16/24 04:00 09/16/24 04:35 Temperature 98.1 F Pulse Rate 78 88 Respiratory Rate 20 Blood Pressure 128/77 Pulse Oximetry 99 Oxygen Delivery Exam Narrative: AF HR 79 RR 18 SPo2 97 BP 135/70 General: female in no acute respiratory distress who is nontoxic appearing, lying semi recumbent in bed. HEENT: Normocephalic. Atraumatic. Extraocular movement intact. Sclera clear and anicteric. Palate ilana symmetrically. No facial asymmetry. Neck: Neck was supple. No dominant adenopathy, thyromegaly or masses. Chest: Lungs are clear to auscultation bilaterally. No wheezes or crackles. CV: Heart was regular rate and rhythm. S1-S2. No murmurs, gallops, or rubs. Abd: Abdomen was soft. Nontender. Nondistended. Positive bowel sounds. No organomegaly or masses. Ext: No clubbing, cyanosis, or edema. DP pulses bilaterally. Neuro: Patient is alert and oriented x4. Strength is 5/5 in both upper and lower extremities. Speech is clear. Psych: Normal mood and affect. Patient is pleasant and cooperative. Skin: Warm and dry. No rashes noted. H&P: Results Labs Labs: Short CBC 09/15/24 09/16/24 Range/Units 16:40 05:30 WBC 8.7 6.0 (4.5-10.0) K/mm3 Hgb 14.1 12.8 (12.0-15.0) g/dL Hct 42.2 39.0 (37.0-47.0) % Plt Count 259 235 (150-375) k/mm3 [facility] 09/15/24 09/16/24 16:40 05:30 Sodium 136 L 137 Potassium 3.7 3.9 Chloride 99 106 Carbon Dioxide 30 24 BUN 12 8 Creatinine 0.81 0.69 L Glucose 127 H 102 Calcium 9.8 9.2 Cardiac Enzymes 09/15/24 09/15/24 09/15/24 Range/Units 16:40 19:30 22:33 Troponin I < 0.012 < 0.012 < 0.012 (0.000-0.034) ng/mL Liver Function 09/15/24 09/16/24 Range/Units 16:40 05:30 Total Bilirubin 0.6 0.5 (0.2-1.3) mg/dL AST 44 H 40 H (14-36) U/L ALT 37 H 30 (6-35) U/L Alkaline Phosphatase 91 86 (38-126) U/L Albumin 4.6 3.9 (3.5-5.1) g/dL Assessment and Plan Assessment and plan (1) Sinus node dysfunction: Code(s): I49.5 - Sick sinus syndrome Status: Acute Assessment and Plan: Intermittent bradycardia and tachycardia. Symptomatic with noted dizziness when patient becomes bradycardic. Electrolytes WNL on admission: K 3.9, Mag 2.2 TSH WNL. Troponin negative. EKG sinus tachycardia HR [address] changes, repeat EKG sinus rhythm. Chest XR: No acute pulmonary process identified. Echo ordered to assess heart function: unremarkable Tele reviewed: currently no bradycardia episodes however apple watch showing at least 7 episodes of HR 30s on 09/15 Cardiology consulted (2) Essential hypertension: Code(s): I10 - Essential (primary) hypertension Status: Acute Assessment and Plan: Chronic, continue antihypertensives - amlodipine 5 mg daily - HCTZ 12.5 mg daily - telmisartan 40 mg daily - blood pressure remains stable, continue to monitor (3) Hyperlipidemia: Code(s): E78.5 - Hyperlipidemia, unspecified Status: Acute Assessment and Plan: Continue atorvastatin 40 mg daily Quality VTE Prophylaxis VTE prophylaxis: mechanical ordered Hospitalist [facility] Advance Care Plan I have confirmed that the patient's Advanced Care Plan is present, code status is documented, or surrogate decision maker is listed in patient medical record.: Yes Medication Reconciliation I have utilized all available resources to obtain, update and review the patients current medications (includes all prescriptions, OTC, herbals, cannabis, and nutritional supplements).: Yes
[2024-09-16] MEDS: ASPIRIN 81 MG ENTERIC TABLET PO (08:46)
--- NOTE | 2024-09-16 11:50 | P.CONCA_ITS ---
Assessment and Plan Assessment and plan (1) Tachycardia: Code(s): R00.0 - Tachycardia, unspecified Status: Acute (2) Bradycardia: Code(s): R00.1 - Bradycardia, unspecified Status: Acute (3) Episodic lightheadedness: Code(s): R42 - Dizziness and giddiness Status: Acute Plan 63-year-old woman with history of CVA, hypertension, and hyperlipidemia presented due to sensations of lightheadedness Lightheadedness -she is already wearing a 2 week Holter monitor and given her that she is periodically symptomatic while wearing the monitor, I would recommend that she follow-up with her primary care physician to turn and monitor so we can evaluate what her rhythm is during these symptomatic episodes Bradycardia -during her time in med surge unit, there was no evidence of bradycardia -however her Apple watch does show episodes of bradycardic to the 30s -would recommend that at this time as she turned in her monitor and we can evaluate what her underlying rhythm is during these episodes where her Apple watch is stating heart rate to be in the 30s Tachycardia -appears to be sinus tachycardia and no evidence of arrhythmia at this time -echocardiogram revealed normal biventricular size and systolic function -recommend to review the 2 week Holter monitor in outpatient setting No further inpatient workup warranted at this time. Would recommend continue outpatient workup to start with evaluating the results of 2 week Holter monitor. History of Present Illness History of Present Illness Consult date/time: 09/16/24 11:50 Requesting physician: Viviane Bonner, CHELA Reason For Visit: Lightheadedness, Tachy/Ivan Narrative: 63-year-old woman with history of CVA, hypertension, and hyperlipidemia presented due to sensations of lightheadedness. She is unable to recall how often these symptoms occur however she has been feeling the symptoms in the last few months. Yesterday she was working from home and caring on about with her daily activities on a normal basis and throughout these activities she would sometimes feel lightheadedness with no clear associated precipitating factors. The lightheadedness would occur for about 1 minute and then would dissipate. She is quite meticulous about her rates and several concerns of why her rates would be in the 30s and and suddenly be in the 120s. We discussed her overall apple watch heart rate findings in great detail along with an outline of plan for her rhythm/rate concerns. We also discussed that more importantly, if she had other symptoms that are functionally limiting and it did not appear that there were any other such symptoms. Denies any loss of consciousness. Review of Systems 2 Cardiovascular: Cardiovascular: Reports as per HPI Respiratory: Respiratory: Reports as per HPI [facility] Past Medical History Medical History (Updated 09/16/24 @ 07:11 by Viviane Bonner PA-C) Hyperlipidemia Stroke Paresthesias Essential hypertension Surgical History Surgical History History of partial hysterectomy History of 2 sections History of tonsillectomy and adenoidectomy Family History Family History Mother Cerebrovascular accident Diabetes mellitus Hypertension Grandparent Cerebrovascular accident Social History Social History Social History: The patient lives in [place], [place] with her children. She works for a [employer] in [place] but has been working at home since April 2019. No alcohol, tobacco, or illicit substance use. She designates her son, Xavier, as her surrogate decision maker and she wishes to be a full code. Smoking status: Never smoker Alcohol intake: current Drinks per week: 1 Substance use: never Substance use type: does not use Lack of Transportation: No Lack of Food: Never True Current Housing: I Have Housing Concerned About Future Housing: No Difficulty Paying Gas/Electric Bills: No Difficulty Paying for Meds: No Currently Unemployed: No Education: High School Diploma/GED Difficulty w/ Childcare or Family Care: No Gender identity (if verbalized by the patient): Female Spiritual care concerns: No Meds Home Medications and Allergies Home Medications ?Medication ?Instructions ?Recorded ?Confirmed ?Type aspirin 81 mg tablet,delayed 81 mg PO QAM #30 tabs 01/31/20 09/15/24 Rx release hydrochlorothiazide 12.5 mg capsule 12.5 mg PO QAM #30 caps 01/31/20 09/15/24 Rx telmisartan 40 mg tablet 40 mg PO DAILY 02/11/20 09/15/24 History amlodipine 5 mg tablet 5 mg PO HS 09/15/24 09/15/24 History atorvastatin 40 mg tablet 40 mg PO HS 09/15/24 09/15/24 History Allergies Allergy/AdvReac Type Severity Reaction Status Date / Time lisinopril AdvReac Cough Verified 09/15/24 21:27 Vital Signs Vital Signs - 24 hr 09/15/24 16:22 09/15/24 16:35 09/15/24 16:43 Temperature 36.8 C 36.8 C Pulse Rate 123 H 121 H 111 H Respiratory Rate 16 20 21 H Blood Pressure 192/85 H 192/85 H Pulse Oximetry 99 98 100 Oxygen Delivery Room Air Room Air 09/15/24 16:45 09/15/24 16:57 09/15/24 18:17 Temperature Pulse Rate 105 H 108 H 104 H Respiratory Rate 16 17 18 Blood Pressure 141/122 H 128/76 Pulse Oximetry 100 Oxygen Delivery 09/15/24 21:30 09/15/24 22:59 09/16/24 00:00 Temperature 35.8 C L Pulse Rate 95 66 Respiratory Rate 18 Blood Pressure 132/75 Pulse Oximetry 99 Oxygen Delivery Room Air 09/16/24 04:00 09/16/24 04:35 09/16/24 08:00 Temperature 36.7 C Pulse Rate 78 88 71 Respiratory Rate 20 Blood Pressure 128/77 Pulse Oximetry 99 Oxygen Delivery 09/16/24 08:00 09/16/24 11:48 Temperature Pulse Rate Respiratory Rate Blood Pressure 130/68 Pulse Oximetry 99 Oxygen Delivery Room Air Exam 2 Const: General: comfortable HENMT: Mouth: Yes moist mucous membranes Eyes: EOM: EOMs intact bilaterally Neck: Neck: no JVD Resp: Effort & Inspection: normal respiratory effort Auscultation: clear to auscultation bilaterally Cardio: Rate: regular rate Rhythm: regular rhythm Extrem: General: no pedal edema Results Labs and Meds 09/16/24 05:30 09/16/24 05:30 Lab results: Cardiac Enzymes 09/15/24 09/15/24 09/15/24 Range/Units 16:40 19:30 22:33 AST 44 H (14-36) U/L Troponin I < 0.012 < 0.012 < 0.012 (0.000-0.034) ng/mL 09/16/24 Range/Units 05:30 AST 40 H (14-36) U/L Troponin I (0.000-0.034) ng/mL Coagulation 09/15/24 Range/Units 16:40 PT 13.0 (11.1-14.7) Seconds APTT 31.2 (22.3-36.8) Seconds CBC 09/15/24 09/16/24 Range/Units 16:40 05:30 WBC 8.7 6.0 (4.5-10.0) K/mm3 RBC 4.79 4.39 (4.2-5.4) M/mm3 Hgb 14.1 12.8 (12.0-15.0) g/dL Hct 42.2 39.0 (37.0-47.0) % Plt Count 259 235 (150-375) k/mm3 Lymph # (Auto) 2.07 1.81 (0.9-3.2) K/mm3 [place] # (Auto) 0.6 0.5 (0.1-0.6) K/mm3 Eos # (Auto) 0.2 0.3 (0-0.3) K/mm3 Baso # (Auto) 0.1 0.1 (0.0-0.1) K/mm3 Comprehensive Metabolic Panel 09/15/24 09/16/24 Range/Units 16:40 05:30 Sodium 136 L 137 (137-145) mmol/L Potassium 3.7 3.9 (3.4-5.0) mmol/L Chloride 99 106 (98-107) mmol/L Carbon Dioxide 30 24 (22-30) mmol/L BUN 12 8 (7-17) mg/dL Creatinine 0.81 0.69 L (0.7-1.0) mg/dL Glucose 127 H 102 (65-110) mg/dL Calcium 9.8 9.2 (8.4-10.2) mg/dL AST 44 H 40 H (14-36) U/L ALT 37 H 30 (6-35) U/L Alkaline Phosphatase 91 86 (38-126) U/L Total Protein 8.4 H 7.0 (6.3-8.2) g/dL Albumin 4.6 3.9 (3.5-5.1) g/dL Intake and Output 09/15/24 09/16/24 09/16/24 23:59 07:59 15:59 Intake Total 1000 450 118 Balance 1000 450 118 Intake: IV 1000 Sodium Chloride 0.9% IV 1,000 1000 ml @ 999 mls/hr IV CONT .Q1H1M STA Rx#:[id number] Oral 450 118 Other: # Unmeasured Voids 4
[2024-09-16] MEDS: ATORVASTATIN 40 MG TABLET PO (20:24)
[2024-09-17 00:20] VITALS: PULSE 73
[2024-09-17 04:00] VITALS: PULSE 75
[2024-09-17 05:32] VITALS: BP 143/83; PULSE 71; RESP 16; TEMP 36.8; O2SAT 98
[2024-09-17 07:01] LABS: Hematocrit 41.7 % (37.0-47.0); Hemoglobin 13.6 g/dL (12.0-15.0); Immature Granulocyte Percent A 0.4 % (0-0.5); Lymphocytes Absolute Auto 1.29 K/mm3 (0.9-3.2); Mean Corpuscular HGB Conc 32.6 g/dl (32-36); Mean Corpuscular Hemoglobin 29.2 pg (26-34); Mean Corpuscular Volume 89.5 fl (80-100); Nucleated Red Blood Cells Absolute Auto 0.000 K/mm3 (0.0-0.012); Nucleated Red Blood Cells Perc 0.0 % (0.0-0.2); Platelet Count Result 232 k/mm3 (150-375); Red Blood Count 4.66 M/mm3 (4.2-5.4); White Blood Count 5.4 K/mm3 (4.5-10.0)
[2024-09-17 07:15] LABS: Alanine Aminotransferase 33 U/L (6-35); Albumin Level 4.2 g/dL (3.5-5.1); Alkaline Phosphatase 79 U/L (38-126); Anion Gap 6 mmol/L (4-12); Aspartate Amino Transferase 37 U/L (14-36); Bilirubin,Total 0.6 mg/dL (0.2-1.3); Blood Urea Nitrogen 10 mg/dL (7-17); Calcium 9.4 mg/dL (8.4-10.2); Carbon Dioxide 29 mmol/L (22-30); Chloride 104 mmol/L (98-107); Estimated CRCL calculation 64 ml/min; Estimated Glomerular Filt Rate > 60; Glucose 105 mg/dL (65-110); Magnesium 2.3 mg/dL (1.6-2.3); Potassium 3.6 mmol/L (3.4-5.0); Sodium 139 mmol/L (137-145); Total Protein 7.5 g/dL (6.3-8.2)
[2024-09-17 08:00] VITALS: PULSE 63
[2024-09-17] MEDS: TELMISARTAN 40 MG TABLET PO (08:18)
[2024-09-17] MEDS: ASPIRIN 81 MG ENTERIC TABLET PO (08:19)
--- NOTE | 2024-09-17 10:00 | PM.DS ---
DS: Admitting Diagnosis Discharge Date 09/17 Admitting Diagnosis bradycardia with dizziness/lightheadedness DS: Discharge Diagnosis Discharge Diagnosis (1) Sinus node dysfunction: Code(s): I49.5 - Sick sinus syndrome Status: Acute (2) Essential hypertension: Code(s): I10 - Essential (primary) hypertension Status: Acute (3) Hyperlipidemia: Code(s): E78.5 - Hyperlipidemia, unspecified Status: Acute DS: Summary Hospital Course Hospital Course: 63 year old male with past medical history of hypertension, hyperlipidemia, and CVA presents to the hospital for dizziness/lightheadedness. Patient states that for 2-3 weeks she has been experiencing intermittent lightheadedness with noted bradycardia on her Apple watch into the 30s. Patient was seen by her primary care provider where a EKG was obtained and further lab work, patient states all returned normal. She was placed on a cardiac event monitor for 2 weeks which she still has in place and is to be completed on Sunday. Cardiology was consulted. See note below: Lightheadedness -she is already wearing a 2 week Holter monitor and given her that she is periodically symptomatic while wearing the monitor, I would recommend that she follow-up with her primary care physician to turn and monitor so we can evaluate what her rhythm is during these symptomatic episodes Bradycardia -during her time in med surge unit, there was no evidence of bradycardia -however her Apple watch does show episodes of bradycardic to the 30s -would recommend that at this time as she turned in her monitor and we can evaluate what her underlying rhythm is during these episodes where her Apple watch is stating heart rate to be in the 30s Tachycardia -appears to be sinus tachycardia and no evidence of arrhythmia at this time -echocardiogram revealed normal biventricular size and systolic function -recommend to review the 2 week Holter monitor in outpatient setting No further inpatient workup warranted at this time. Would recommend continue outpatient workup to start with evaluating the results of 2 week Holter monitor Status at Discharge Functional status at discharge: independent ambulation Overall status at discharge: patient is back to baseline Time Spent with Patient Time attestation: Total time spent providing and/or coordinating discharge services: Time spent: Greater than 30 minutes Exam Narrative: General: female in no acute respiratory distress who is nontoxic appearing, lying semi recumbent in bed. HEENT: Normocephalic. Atraumatic. Extraocular movement intact. Sclera clear and anicteric. Palate ilana symmetrically. No facial asymmetry. Neck: Neck was supple. No dominant adenopathy, thyromegaly or masses. Chest: Lungs are clear to auscultation bilaterally. No wheezes or crackles. CV: Heart was regular rate and rhythm. S1-S2. No murmurs, gallops, or rubs. Abd: Abdomen was soft. Nontender. Nondistended. Positive bowel sounds. No organomegaly or masses. Ext: No clubbing, cyanosis, or edema. DP pulses bilaterally. Neuro: Patient is alert and oriented x4. Strength is 5/5 in both upper and lower extremities. Speech is clear. Psych: Normal mood and affect. Patient is pleasant and cooperative. Skin: Warm and dry. No rashes noted. Const: General: comfortable Skin: General skin exam: normal color DS: Data Data Completed and Pending Labs on day of discharge: Labs from last 24 hours 09/17/24 06:47 WBC 5.4 RBC 4.66 Hgb 13.6 Hct 41.7 MCV 89.5 MCH 29.2 MCHC 32.6 RDW 13.9 Plt Count 232 MPV 10.3 Immature Gran % (Auto) 0.4 Neut % (Auto) 62.5 Lymph % (Auto) 23.8 Ellis % (Auto) 6.8 Eos % (Auto) 5.2 H Baso % (Auto) 1.3 H Lymph # (Auto) 1.29 Ellis # (Auto) 0.4 Eos # (Auto) 0.3 Baso # (Auto) 0.1 Abs Immat Gran (auto) 0.02 Absolute Neuts (auto) 3.4 Absolute Nucleated RBC 0.000 Nucleated RBC % 0.0 Sodium 139 Potassium 3.6 Chloride 104 Carbon Dioxide 29 Anion Gap 6 BUN 10 Creatinine 0.77 Estim Creat Clear Calc 64 Estimated GFR > 60 Glucose 105 Calcium 9.4 Magnesium 2.3 Total Bilirubin 0.6 AST 37 H ALT 33 Alkaline Phosphatase 79 Total Protein 7.5 Albumin 4.2 Discharge Plan Discharge Attending physician on discharge: Audrey Wade Consulting providers: Gilles West; Viviane Bonner Discharging Clinician: Argenis Griffiths Patient Disposition: Home Activity: june shower Diet: heart healthy Discharge Instructions: You were admitted for c/o dizziness/fast/slow heart rate. Cardiology saw you and no acure/new recommendations/interventions needed. Please follow-up with your primary care physician to turn and monitor so they can evaluate the rhythm during these symptomatic episodes. Please avoid coffee, alcohol, energy drinks. Patient Instructions: Antibiotic Form Patient Language: [place] Stand Alone Forms: General Discharge Information Follow-up/Referrals: FranciscaTunde [Other] - 2 Weeks Gilles West MD [Physician] - 1 Week Discharge Medications: Continued aspirin 81 mg Tablet,Delayed Release (Dr/Ec) 81 mg PO QAM Qty: 30 2RF hydrochlorothiazide 12.5 mg Capsule 12.5 mg PO QAM Qty: 30 2RF telmisartan 40 mg tablet 40 mg PO DAILY atorvastatin 40 mg tablet 40 mg PO HS amlodipine 5 mg tablet 5 mg PO HS Date of admission: 09/15/24 20:49 Primary Care Provider: JosefinaTunde Admitting Provider: Thang Carlos Attending physician on admission: Thang Carlos Condition: Stable Quality VTE Prophylaxis VTE prophylaxis: mechanical ordered Hospitalist MIPS Heart Failure (Exclusion) Patient has history of Heart Transplant or Left Ventricular Assistive Device?: No IF YES, STOP HERE Heart Failure (Qualifier) Patient has current or prior documentation of LVEF less than or equal to 40%, or mod/servere depressed LVSF?: No IF NO, STOP HERE
== END 2024-09-17 11:40 | disposition home or self-care (01) ==
LOC: ANHED 17:38 → ANH3MEDSUR 22:22
PROVIDERS: Emergency Medicine; Nurse Practitioner; Admitting Provider Internal Medicine; Emergency Provider Physician Assistant; Visit Provider Family Medicine
DX: I49.5 Sick sinus syndrome (principal); E78.5 Hyperlipidemia, unspecified; I10 Essential (primary) hypertension; Z86.73 Personal history of transient ischemic attack (TIA), and cerebral infarction without residual deficits
CPT/HCPCS: 36415; 71046; 80053; 83690; 83735; 84443; 84484; 85025; 85610; 85730; 93005; 93306; 96361; 96372; 96374; 99285; A9270; G0378; J1650; J7030